=== PATIENT | male | born 1945 | race American Indian/Alaskan Native ===

== ENCOUNTER 2016-08-06 08:55 | Inpatient (IN) | payer MEDICARE ==
[2016-08-06 09:24] VITALS: BMI 20.9
--- NOTE | 2016-08-06 09:44 | ED PDOC ---
Arrival/HPI - General Historian: Patient - History of Present Illness Time/Duration: Prior to Arrival <Case Mir - Last Filed: 08/06/16 10:46> <Luis Lomeli - Last Filed: 08/06/16 13:39> - General Chief Complaint: Chest Pain Time Seen by Provider: 08/06/16 09:16 - History of Present Illness Narrative History of Present Illness (Text): 08/06/16 09:40 70 y/o male with hx CAD s/p stent placement 4 years ago, hx HTN, HLD, tobacco use presenting with complaints of left sided chest pain which started this morning prior to arrival. Patient notes associated shortness of breath with episode of chest discomfort. Currently the patient is without chest pain or shortness of breath. He denies other associated symptoms such as radiation of pain, diaphoresis or GI symptoms. He admits to not taking his medications for "some time" as he was living in [place] and did not see a physician there. He admits to tobacco use - 1/2 ppd and alcohol use - 8oz liquor daily. (Case Mir) Past Medical History - Provider Review Nursing Documentation Reviewed: Yes - Infectious Disease Hx of Infectious Diseases: None - Tetanus Immunization Tetanus Immunization: Unknown - Cardiac Hx Cardiac Disorders: Yes Hx Hypertension: Yes - Pulmonary Hx Respiratory Disorders: Yes Hx Asthma: Yes Hx Chronic Obstructive Pulmonary Disease (COPD): Yes - Neurological Hx Neurological Disorder: Yes (SYNCOPE) Hx Dizziness: Yes - HEENT Hx HEENT Disorder: Yes (WEARS RX GLASSES FOR READING) - Renal Hx Renal Disorder: No - Endocrine/Metabolic Hx Endocrine Disorders: No - Hematological/Oncological Hx Blood Disorders: No - Integumentary Hx Dermatological Disorder: No - Musculoskeletal/Rheumatological Hx Musculoskeletal Disorders: Yes Hx Falls: No Hx Gout: Yes - Gastrointestinal Hx Gastrointestinal Disorders: Yes (APPENDICITIS,INGUINAL HERNIA REPAIR) - Genitourinary/Gynecological Hx Genitourinary Disorders: No - Psychiatric Hx Psychophysiologic Disorder: No Hx Depression: No Hx Emotional Abuse: No Hx Physical Abuse: No Hx Substance Use: Yes (marijuana) - Surgical History Hx Cardiac Catheterization: Yes - Anesthesia Hx Anesthesia Reactions: No Hx Malignant Hyperthermia: No - Suicidal Assessment Feels Threatened In Home Enviroment: No <Case Mir - Last Filed: 08/06/16 10:46> Family/Social History Family/Social History: Unknown Family HX Smoking Status: Current Some Days Smoker Hx Alcohol Use: Yes Hx Substance Use: Yes (marijuana) <Case Mir - Last Filed: 08/06/16 10:46> Allergies/Home Meds <Case Mir - Last Filed: 08/06/16 10:46> <BurakdianaLuis - Last Filed: 08/06/16 13:39> Allergies/Adverse Reactions: Allergies No Known Allergies Allergy (Verified 08/06/16 11:25) Home Medications: Home Meds Medication Instructions Recorded Confirmed Simvastatin 40 mg PO DAILY 07/11/12 06/05/15 Vitamin D 07/11/12 06/05/15 Review of Systems - Physician Review All systems were reviewed & negative as marked: Yes - Review of Systems Constitutional: Normal. absent: Fatigue, Fevers Eyes: Normal ENT: Normal Respiratory: SOB. absent: Cough, Sputum, Wheezing Cardiovascular: Chest Pain. absent: Palpitations, Calf Pain, PALOMO Gastrointestinal: absent: Abdominal Pain, Diarrhea, Nausea, Vomiting Genitourinary Male: absent: Dysuria, Frequency, Hematuria Musculoskeletal: absent: Arthralgias, Back Pain, Neck Pain Skin: absent: Rash, Pruritis, Skin Lesions Neurological: absent: Headache, Dizziness, Focal Weakness Endocrine: absent: Diaphoresis Psychiatric: absent: Anxiety, Depression <Case Mir - Last Filed: 08/06/16 10:46> Physical Exam Vital Signs Reviewed: Yes Temperature: Afebrile Blood Pressure: Normal Pulse: Regular Respiratory Rate: Normal Appearance: Positive for: Well-Appearing, Non-Toxic Pain Distress: None Mental Status: Positive for: Alert and Oriented X 3 - Systems Exam Head: Present: Atraumatic, Normocephalic Pupils: Present: PERRL Extroacular Muscles: Present: EOMI Conjunctiva: Present: Normal Mouth: Present: Moist Mucous Membranes Neck: Present: Normal Range of Motion. No: JVD Respiratory/Chest: Present: Clear to Auscultation, Good Air Exchange. No: Respiratory Distress Cardiovascular: Present: Regular Rate and Rhythm, Normal S1, S2 Abdomen: Present: Normal Bowel Sounds. No: Tenderness, Distention Upper Extremity: Present: Normal Inspection, Normal ROM. No: Cyanosis, Edema Lower Extremity: Present: Normal Inspection, NORMAL PULSES, Normal ROM. No: Edema, CALF TENDERNESS Neurological: Present: GCS=15, CN II-XII Intact, Speech Normal Skin: Present: Warm, Dry. No: Rashes Psychiatric: Present: Alert, Oriented x 3, Normal Insight, Normal Concentration <Case Mir - Last Filed: 08/06/16 10:46> Vital Signs Temp Pulse Resp BP Pulse Ox 08/06/16 11:44 83 16 131/76 97 08/06/16 10:51 97.9 F 84 20 137/79 98 08/06/16 09:21 98.0 F 95 H 22 146/97 H 95 08/06/16 09:19 93 H 95 H 146/97 H Medical Decision Making <Case Mir - Last Filed: 08/06/16 10:46> - Lab Interpretations I have reviewed the lab results: Yes <Luis Lomeli - Last Filed: 08/06/16 13:39> ED Course and Treatment: 08/06/16 09:45 70 y/o male with known hx coronary, HTN, HLD presenting with chest pain. Patient is non-compliant with medications and physician f/u. EKG with NSR and without acute ischemia. Currently patient is asymptomatic and hemodynamically stable. - aspirin 325mg now - cardiac iso - CBC - CMP - chest xray - PT/pTT 08/06/16 10:46 Labs reviewed. Cardiac enzymes are negative. Labs are essentially unremarkable. Case discussed with Dr. Guadarrama who agrees to a admit the patient for observation to r/o ACS given patient's cardiac history. (Case Mir) Patient seen and examined with resident. Came up with treatment and disposition plan with resident. The patient is a 70 year old male who comes to the emergency department for evaluation of left sided chest pain associated with shortness of breath. Additional HPI details as noted by the resident. Physical examination reveal no acute findings. Will obtain EKG, Chest X-ray, and lab work to rule out ACS vs. other cardiac causes. Aspirin given for discomfort. EKG show a normal sinus rhythm at 95 BPM with left axis deviation and right bundle branch block. Chest X-ray shows no active disease. Lab work is unremarkable. Case discussed with Dr. Pérez, who is aware and agrees with the plan to place the patient in Telemetry observation for chest pain. Results and plan discussed with the patient, who expressed understanding. Patient was given the opportunity to ask question, all questions were answered and there is agreement with the plan to be admitted to the hospital. 08/06/16 13:38 pt seen with resident. pt with left sided cp x 1 day. pain free in er. trop neg x 1. ekg unchanged. admitted for cp obs. no clinical concern for pe/aortic catastrophe (no pleuritic pain, pain free, not tachycardic, no radiation to back ). (Luis Lomeli) - Lab Interpretations Lab Results: 08/06/16 09:53 08/06/16 09:53 Lab Results 08/06/16 09:53: WBC 3.8 L D, RBC 4.42, Hgb 14.6, Hct 43.7, MCV 98.9, MCH 33.0, MCHC 33.4, RDW 14.8 H, Plt Count 183, MPV 11.6 H, Gran % 61.4, Lymph % (Auto) 23.0, Wilson % (Auto) 13.0 H, Eos % (Auto) 2.1, Baso % (Auto) 0.5, Gran # 2.32, Lymph # 0.9 L, Wilson # 0.5, Eos # 0.1, Baso # 0.02, PT 10.7, INR 0.99, APTT 30.6 , Sodium 138, Potassium 4.1, Chloride 98, Carbon Dioxide 36 H, Anion Gap 8 L, BUN 11, Creatinine 0.8, Est GFR ( Amer) > 60, Est GFR (Non-Af Amer) > 60 , Random Glucose 120 H, Calcium 9.3, Total Bilirubin 0.9, AST 38, ALT 37, Alkaline Phosphatase 79, Lactate Dehydrogenase 429, Total Creatine Kinase 97, Troponin I < 0.01, Total Protein 7.0, Albumin 3.8, Globulin 3.1, Albumin/ Globulin Ratio 1.2 - RAD Interpretation Radiology Orders: 08/06/16 09:25 CHEST PORTABLE [RAD] Stat - Medication Orders Current Medication Orders: Metoprolol Tartrate (Lopressor) 50 mg PO BID PENDING SALE TO [facility] Discontinued Medications Aspirin (Aspirin) 325 mg PO STAT STA Stop: 08/06/16 09:26 Last Admin: 08/06/16 09:53 Dose: 325 MG Metoprolol Tartrate (Lopressor) 50 mg PO BID NICHELLE Metoprolol Tartrate (Lopressor) 50 mg PO STAT STA Stop: 08/06/16 12:46 Last Admin: 08/06/16 12:50 Dose: 50 MG MAR Pulse and Blood Pressure Document 08/06/16 12:50 JJ (Rec: 08/06/16 12:50 JJ [id number]) Pulse Pulse Rate (60-90) 85 Blood Pressure Blood Pressure (100/60-150/90) 147/104 <Case Mir - Last Filed: 08/06/16 10:46> - Scribe Statement The provider has reviewed the documentation as recorded by the Scribe <Luis Lomeli - Last Filed: 08/06/16 13:39> - Scribe Statement Cathleen Ledezma Provider Scribe Attestation: All medical record entries made by the Scribe were at my direction and personally dictated by me. I have reviewed the chart and agree that the record accurately reflects my personal performance of the history, physical exam, medical decision making, and the department course for this patient. I have also personally directed, reviewed, and agree with the discharge instructions and disposition. (Luis Lomeli) Disposition/Present on Arrival - Present on Arrival Any Indicators Present on Arrival: No History of DVT/PE: No History of Uncontrolled Diabetes: No Urinary Catheter: No History of Decub. Ulcer: No History Surgical Site Infection Following: None - Disposition Have Diagnosis and Disposition been Completed?: Yes Disposition Time: 10:49 Patient Plan: Observation <Case Mir - Last Filed: 08/06/16 10:46> <Luis Lomeli - Last Filed: 08/06/16 13:39> - Disposition Diagnosis: Chest pain Disposition: HOSPITALIZED Patient Problems: Current Active Problems Problem Status Diagnosed Chest pain Acute Condition: STABLE
[2016-08-06 09:59] LABS: ADD MANUAL DIFF? NO
--- NOTE | 2016-08-06 09:59 | RAD ---
HISTORY: chest pain COMPARISON: 01/30/2013 FINDINGS: LUNGS: No active pulmonary disease. PLEURA: No significant pleural effusion identified, no pneumothorax apparent. CARDIOVASCULAR: Normal. OSSEOUS STRUCTURES: No significant abnormalities. VISUALIZED UPPER ABDOMEN: Normal. OTHER FINDINGS: None. IMPRESSION: No active disease.
[2016-08-06 10:05] LABS: BASO # 0.02 K/mm3 (0.0-2.0); BASO % 0.5 % (0.0-3.0); EOS # 0.1 (0.0-0.7); EOS % 2.1 % (1.5-5.0); GRAN # 2.32 (1.4-6.5); GRAN % 61.4 % (50.0-68.0); HEMATOCRIT 43.7 % (42.0-52.0); LYMPH # 0.9 (1.2-3.4); MEAN CELL VOLUME 98.9 fL (80.0-105.0); MEAN CORPUSCULAR HGB CONC 33.4 g/dl (31.0-37.0); MEAN PLATELET VOLUME 11.6 fl (7.0-11.0); MONO # 0.5 (0.1-0.6); PLATELET COUNT 183 10^3/uL (120.0-450.0); RED CELL DISTRIBUTION WIDTH 14.8 % (11.5-14.5); WHITE BLOOD COUNT 3.8 10^3/ul (4.5-11.0)
[2016-08-06 10:15] LABS: ALB/GLOB RATIO 1.2 (1.1-1.8); ALKALINE PHOSPHATASE 79 U/L (38-133); ALT/SGPT 37 U/L (7-56); AST/SGOT 38 U/L (15-59); BILIRUBIN,TOTAL 0.9 mg/dL (0.2-1.3); BLOOD UREA NITROGEN 11 mg/dL (7-21); CALCIUM 9.3 mg/dL (8.4-10.5); CARBON DIOXIDE 36 mmol/L (21-33); CHLORIDE 98 mmol/L (98-107); GFR AFRICAN-AMERICAN > 60; GLUCOSE,RANDOM 120 mg/dL (70-110); INR 0.99 (0.93-1.08); PARTIAL THROMBOPLASTIN TIME 30.6 Seconds (23.7-30.8); POTASSIUM 4.1 mmol/L (3.6-5.0); SODIUM 138 mmol/L (132-148)
[2016-08-06 10:27] LABS: TROPONIN I < 0.01 ng/mL
[2016-08-06] MEDS ORDERED: Pneumococcal 23-Valent Vaccine IM ONE (15:15)
--- NOTE | 2016-08-06 16:46 | CARD ---
APPROVED REPORT EKG Measurement Heart [id number] <Conclusion> Normal sinus rhythm Left axis deviation Right bundle branch block Abnormal ECG
[2016-08-06] MEDS: Enoxaparin 60 mg Syringe SC SCH (20:10)
[2016-08-07] MEDS: Aspirin 325 mg EC Tablets PO SCH (09:32)
[2016-08-07] MEDS: Enoxaparin 60 mg Syringe SC SCH ×2 (09:32→21:00)
--- NOTE | 2016-08-07 11:34 | HP ---
HISTORY OF PRESENT ILLNESS: The patient is a 70-year-old male who presented to the ED with left-sided chest pain that started in the morning prior to arrival. He has a history of coronary artery disease with stent placement 4 years ago. Also has a history of hypertension, controlled on current medication. He continues to smoke 1 pack a day. He also developed shortness of breath with the chest pain. There is no radiation of pain. No nausea or vomiting. He also continues 8 ounces of liquor daily. He has history of hypertension. Blood pressure controlled with current medications. Coronary artery disease with stent placement 4 years ago. He has been stable prior to admission to the hospital. He also has a history of COPD. No recent exacerbation. Has history of syncope in the past, but none in the recent past. PAST MEDICAL HISTORY: Coronary artery disease, hypertension, cardiac stent placement, history of syncope in the past, COPD, history of dizziness, gout. PAST SURGICAL HISTORY: Cardiac stent placement, appendicitis, inguinal hernia repair. PERSONAL HISTORY: Positive for marijuana use. Smoker, smokes 1 pack a day. Current smoker. Social drinker. FAMILY HISTORY: None positive, mother and father. SOCIAL HISTORY: Lives at home. ALLERGIES: No known drug allergies. HOME MEDICATIONS: Lipitor 40 mg daily, vitamin D. REVIEW OF SYSTEMS: As per HPI. Rest of 12-point review of systems reviewed and negative. PHYSICAL EXAMINATION: GENERAL: Comfortable in bed, in no acute distress. VITAL SIGNS: Temperature 98, heart rate is 93 per minute, blood pressure 146/97 , pulse ox is 98% room air. HEENT: Normal. NECK: No lymphadenopathy. CARDIOVASCULAR: S1, S2 normal. No murmur, no gallop. PULMONARY: Air entry present, equal bilateral. No bronchospasm. No crepitations, no rhonchi. ABDOMEN: Soft, nontender, no hepatosplenomegaly. EXTREMITIES: No edema. SKIN: Intact, dry. No rash, no petechia. CENTRAL NERVOUS SYSTEM: Alert, oriented x 3, no focal sensorimotor deficit. SPINE: Normal, nontender. PSYCH: Affect normal. LABORATORY DATA: White count 3.8, hemoglobin 14.6, hematocrit 43.7, MCV 98, platelet count 183, granulocytes 61%, monocytes 13%, lymphocytes 0.9%. Coags: PT 10.7, INR 0.98, PTT 30. Sodium 138, potassium 4.1, BUN 11, creatinine 0.8, calcium 9.3, glucose 120. Troponin 0.01, second set 0.31, alkaline phosphatase 79. Chest x-ray: No infiltrate. EKG showed right bundle branch block, left axis deviation. ASSESSMENT: 1. Coronary artery disease. 2. [id number] myocardial infarction. 3. Leukopenia. 4. Monocytosis. 5. History of gout. 6. Hypertension. 7. History of syncope. PLAN: He will be admitted to tele monitoring. Cardiology consultation with Dr. Babin requested. We will start metoprolol 50 mg p.o. b.i.d. We will give full dose anticoagulation with Lovenox 60 mg subQ q. 12, Lipitor 20 mg daily. We will continue aspirin 325 mg daily. We will continue to monitor blood counts and continue to monitor serial troponins. Echocardiogram requested. Tatiana Del Castillo MD cc: [id number] TT: 08/07/2016 11:33:37 ln MTDD
--- NOTE | 2016-08-08 02:50 | CON ---
DATE: 08/07/2016 CARDIOLOGY CONSULTATION INTERNETWORKING TECHNICIAN: Pankaj Govea MD REASON FOR DICTATION: Covering Dr. John Babin. REASON FOR CONSULTATION: Chest pain, coronary artery disease, status post PTCA in the past. BRIEF CLINICAL HISTORY: A 70-year-old male, active tobacco abuse, with history of coronary artery di sease status post a stent 5-6 years ago, hypertension, hyperlipidemia, active tobacco abuse, came in with complaint of shortness of breath and a little tingling sensation with pain, with radiation to th e left arm, so came to the Emergency Room. Denies any nausea, vomiting, denies any diaphoresis. PAST MEDICAL HISTORY: Significant for coronary artery disease, last stent 6 years ago, hypertension, history of syncope, COPD, and dizziness. PAST SURGICAL HISTORY: Significant for PTCA appendectomy, inguinal hernia. SOCIAL HISTORY: Active tobacco abuse; a pack a day, history of marijuana use, drinks half-pint of vo dka off and on. PREVIOUS CARDIAC WORKUP: As follows: The patient had a stress test on 09/14/2013. Essentially a fi xed defect and no reversible ischemia, ejection fraction 59%. REVIEW OF SYSTEMS: As per HPI. CURRENT MEDICATIONS: The patient at home was taking simvastatin, isosorbide, enalapril, aspirin, and albuterol. ALLERGIES: No known drug allergies. PHYSICAL EXAMINATION: VITAL SIGNS: Temperature afebrile, heart rate 50, blood pressure 120/74. HEENT: PERRLA, extraocular muscles intact. NECK: Supple. No carotid bruits. No thyromegaly. CHEST: Clear to auscultation. HEART: S1, S2 regular. ABDOMEN: Soft. EXTREMITIES: Clubbing and cyanosis negative. EKG: Shows normal sinus, left axis deviation, and right bundle-branch block. LABORATORY DATA: Blood workup as follows: WBC 3.8, hemoglobin 14, hematocrit 43.7, platelet count 1 83. Chemistry shows sodium 138, potassium 4.0, chloride 95, carbon dioxide 36, anion gap of 11, BUN 8, creatinine 0.8. Troponin 0.01, 0.31, 0.14. IMPRESSION: Non-ST segment myocardial infarction, coronary artery disease, status post multiple sten ts, diabetes, hyperlipidemia, chronic obstructive pulmonary disease, active tobacco abuse, active alc ohol abuse, tox screen positive, alcohol level 291, positive for benzodiazepines, and positive for TC U, tricyclic antidepressant in the past. RECOMMENDATION: We will start aspirin, Plavix, Lovenox, probably needs cardiac catheterization. Fur ther recommendation and hospital course, we will follow with you. Echo to follow LV function. Thank you, , for providing the opportunity in taking care of the patient. We will transfer the care on Tuesday to Dr. John Babin. Jeferson Lira MD cc: [id number] TT: 08/08/2016 02:49:58 Confirmation # [id number] Dictation # [id number] vn
[2016-08-08 07:06] LABS: ADD MANUAL DIFF? NO
[2016-08-08 07:23] LABS: BLOOD UREA NITROGEN 16 mg/dL (7-21); CALCIUM 8.7 mg/dL (8.4-10.5); CARBON DIOXIDE 33 mmol/L (21-33); CHLORIDE 100 mmol/L (98-107); GFR AFRICAN-AMERICAN > 60; GLUCOSE,RANDOM 84 mg/dL (70-110); POTASSIUM 3.8 mmol/L (3.6-5.0); SODIUM 138 mmol/L (132-148)
[2016-08-08 07:25] LABS: BASO # 0.01 K/mm3 (0.0-2.0); BASO % 0.3 % (0.0-3.0); EOS # 0.1 (0.0-0.7); GRAN # 1.72 (1.4-6.5); GRAN % 46.9 % (50.0-68.0); HEMATOCRIT 42.4 % (42.0-52.0); LYMPH # 1.4 (1.2-3.4); LYMPH % 38.4 % (22.0-35.0); MEAN CORPUSCULAR HEMOGLOBIN 32.8 pg (25.0-35.0); MEAN CORPUSCULAR HGB CONC 32.8 g/dl (31.0-37.0); MEAN PLATELET VOLUME 11.8 fl (7.0-11.0); MONO # 0.4 (0.1-0.6); MONO % 11.4 % (1.0-6.0); PLATELET COUNT 171 10^3/uL (120.0-450.0); RED CELL DISTRIBUTION WIDTH 14.9 % (11.5-14.5); WHITE BLOOD COUNT 3.7 10^3/ul (4.5-11.0)
[2016-08-08] MEDS: Enoxaparin 60 mg Syringe SC SCH ×2 (07:46→20:41)
[2016-08-08] MEDS: Aspirin 325 mg EC Tablets PO SCH (09:32)
--- NOTE | 2016-08-08 13:24 | PN ---
DATE: 08/08/2016 REASON FOR DICTATION: Covering Dr. John Babin. REASON FOR CONSULTATION: Chest pain, coronary artery disease, status post PTCA in the past, acute co ronary syndrome, unstable angina. BRIEF CLINICAL HISTORY: This is a 70-year-old male, active tobacco abuse, history of coronary artery disease, status post stent 5-6 years ago, hypertension, hyperlipidemia, active tobacco abuse. Came in with complaint of shortness of breath and tingling sensation. First troponin was negative. Secon d troponin was 0.3. Also, complained of pain radiating to left arm. Denies any chest pain, shortnes s of breath, any palpitation, now lying flat. PHYSICAL EXAMINATION: VITAL SIGNS: Temperature afebrile, heart rate 62, blood pressure 113/ . HEENT: PERRLA. Extraocular muscles intact. NECK: Supple. No carotid bruits. No thyromegaly. CHEST: Clear to auscultation. HEART: S1, S2 regular. ABDOMEN: Soft. EXTREMITIES: Clubbing, cyanosis negative. BLOOD WORKUP: WBC 3.7, hemoglobin 13.9, hematocrit 42.4, platelet count 171. Chemistry shows sodium 130, potassium 3. , chloride 100, carbon dioxide 33, anion gap of 9, BUN 16, creatinine 0.8. Re peat troponin 0.10. EKG showed normal sinus, left axis deviation, right bundle branch block. IMPRESSION: Non-ST segment myocardial infarction, unstable angina, coronary artery disease, status p ost stent, hypertension, history of coronary artery disease in the past. RECOMMENDATION: Continue aspirin and Plavix, loaded yesterday. Continue enoxaparin and we will disc ontinue tonight. Possible catheterization tomorrow. We will turn over the care tomorrow to Dr. Archie Babin. Discussed with the patient. Thank you, Dr. Pérez, for providing us the opportunity in taking care of the patient. Jeferson Lira MD cc: [id number] TT: 08/08/2016 13:24:06 Confirmation # [id number] Dictation # [id number] en
[2016-08-09] MEDS: Aspirin 325 mg EC Tablets PO SCH ×2 (06:46→13:05)
--- NOTE | 2016-08-09 07:25 | PN ---
DATE: 08/09/2016 SUBJECTIVE: The patient has no complaints of any chest pain, no shortness of breath, no headaches, n o dizziness. PHYSICAL EXAMINATION: VITAL SIGNS: Temperature is 98.1, pulse of 60, blood pressure is 111/65, respirations 19, O2 saturat ion 97%. GENERAL: The patient comfortable, in no acute distress. HEENT: Anicteric sclerae. Moist mucosa. NECK: No JVD or adenopathy. CARDIAC: S1/S2. No murmurs. No rubs. Regular. RESPIRATORY: Clear to auscultation bilaterally. No wheezes, rales, or rhonchi. Good air entry. ABDOMEN: Bowel sounds are positive, soft, nontender, and nondistended. EXTREMITIES: No edema. Has 1+ pulses. ASSESSMENT: 1. Non-ST elevation myocardial infarction. 2. Coronary artery disease. 3. Hypertension. 4. Dyslipidemia. 5. Smoking. PLAN: The patient is currently comfortable. He is on aspirin and metoprolol for non-ST elevation my ocardial infarction. The patient is on Plavix daily. He is receiving lisinopril. The patient is on Lipitor for dyslipidemia. He is on a heart healthy diet. The patient may need a cardiac catheteriz ation. We will defer to cardiology. Salvador Pérez MD cc: [id number] TT: 08/09/2016 07:24:36 Confirmation # [id number] Dictation # [id number] en
[2016-08-09] MEDS ORDERED: Lidocaine 2% Inj (20ml) ONE (09:27)
[2016-08-09] MEDS ORDERED: Midazolam 2 MG/2 ML VIAL ONE ×2 (09:54→10:12)
[2016-08-09] MEDS ORDERED: Sodium Chloride 0.9% 1,000 ML IV SCH (10:45)
--- NOTE | 2016-08-09 10:49 | CARDCATH ---
PROCEDURE DATE: 08/09/2016 HISTORY: The patient is a 70-year-old male with a history of coronary artery disease and peripheral vascular disease who presents with chest pain. His troponins were mildly elevated. Because of this, cardiac catheterization was recommended. PROCEDURE: Left heart catheterization with coronary angiography and left ventriculogram. The right femoral artery was cannulated with a 6-Lithuanian sheath. There were no complications. The findings on catheterization revealed a right dominant circulation. His RCA was diffusely calcified with multiple 50% lesions throughout its course. The left main artery was found to be tapering at its distal portion, but was noncritical. The proximal LAD revealed a 50% stenosis. There was a patent stent in the proximal to mid LAD. The rest of the LAD and diagonal vessels revealed diffuse atherosclerosis without critical lesions. The circumflex artery and obtuse marginal branches revealed diffuse atherosclerosis without critical lesions. LV function was visualized in the GIBBONS projection. The left ventricle contracted normally. Estimated ejection fraction is 50-55%. The patient tolerated the procedure well. Manual compression was used to close the femoral artery site. SUMMARY: The procedure revealed 50% lesion in the mid LAD, 50% stenosis in the proximal LAD with a p atent stent in the proximal to mid LAD. LV function is normal. Given these findings, there is no mechanical revascularization necessary. The patient will continue on his medical therapy and continue a cardiac risk reduction program. John Babin MD cc: [id number] TT: 08/09/2016 10:49:17 jn
--- NOTE | 2016-08-10 00:17 | CP.PCM.PN ---
Subjective - Date & Time of Evaluation Date of Evaluation: 08/08/16 Time of Evaluation: 11:00 - Subjective Subjective: 08/08/2016 HISTORY OF PRESENT ILLNESS: The patient is a 70-year-old male who presented to the ED with left-sided chest pain that started in the morning prior to arrival. He has a history of coronary artery disease with stent placement 4 years ago. Also has a history of hypertension, controlled on current medication. He continues to smoke 1 pack a day. He also developed shortness of breath with the chest pain. There is no radiation of pain. No nausea or vomiting. He also continues 8 ounces of liquor daily. He has history of hypertension. Blood pressure controlled with current medications. Coronary artery disease with stent placement 4 years ago. He has been stable prior to admission to the hospital. He also has a history of COPD. No recent exacerbation. Has history of syncope in the past, but none in the recent past. Cardiac enzymes declined. No events overnight. denies chest pain. PAST MEDICAL HISTORY: Coronary artery disease, hypertension, cardiac stent placement, history of syncope in the past, COPD, history of dizziness, gout. PAST SURGICAL HISTORY: Cardiac stent placement, appendicitis, inguinal hernia repair. PERSONAL HISTORY: Positive for marijuana use. Smoker, smokes 1 pack a day. Current smoker. Social drinker. FAMILY HISTORY: None positive, mother and father. SOCIAL HISTORY: Lives at home. ALLERGIES: No known drug allergies. HOME MEDICATIONS: reviewed. REVIEW OF SYSTEMS: As per HPI. Rest of 12-point review of systems reviewed and negative. PHYSICAL EXAMINATION: GENERAL: Comfortable in bed, in no acute distress. VITAL SIGNS: reviewed. HEENT: Normal. NECK: No lymphadenopathy. CARDIOVASCULAR: S1, S2 normal. No murmur, no gallop. PULMONARY: Air entry present, equal bilateral. No bronchospasm. No crepitations, no rhonchi. ABDOMEN: Soft, nontender, no hepatosplenomegaly. EXTREMITIES: No edema. SKIN: Intact, dry. No rash, no petechia. CENTRAL NERVOUS SYSTEM: Alert, oriented x 3, no focal sensorimotor deficit. SPINE: Normal, nontender. PSYCH: Affect normal. LABORATORY DATA: White count 3.8, hemoglobin 14.6, hematocrit 43.7, MCV 98, platelet count 183, granulocytes 61%, monocytes 13%, lymphocytes 0.9%. Coags: PT 10.7, INR 0.98, PTT 30. Sodium 138, potassium 4.1, BUN 11, creatinine 0.8, calcium 9.3, glucose 120. Troponin 0.01, second set 0.31, alkaline phosphatase 79. Chest x-ray: No infiltrate. EKG showed right bundle branch block, left axis deviation. ASSESSMENT: 1. Coronary artery disease. 2. [id number] myocardial infarction. 3. Leukopenia. 4. Monocytosis. 5. History of gout. 6. Hypertension. 7. History of syncope. 8. Anemia PLAN: No events overnight. No chest pain. He is on full dose lovenox. continue tele monitoring. Cardiac cath planned for tomorrow. Cardiac enzymes declined. Leukocytosis; WC is still low. Mild anemia. work up for anemia. Syncope - resolved. ambulating in room. Hypertension- BP stable. Tatiana Del Castillo MD Objective - Vital Signs/Intake and Output Vital Signs (last 24 hours): Temp Pulse Resp BP Pulse Ox 98.4 F 56 L 20 122/72 97 08/09/16 17:30 08/09/16 22:00 08/09/16 17:30 08/09/16 17:30 08/09/16 06:00 Intake and Output: 08/09/16 08/10/16 18:59 06:59 Intake Total 360 540 Output Total 550 Balance 360 -10 - Medications Medications: Current Medications Aspirin (Ecotrin) [address] [facility] Last Admin: 08/09/16 13:05 Dose: Not Given Atorvastatin Calcium (Lipitor) [address] [facility] Last Admin: 08/09/16 21:33 Dose: 20 mg Clopidogrel Bisulfate (Plavix) [address] [facility] Last Admin: 08/09/16 13:05 Dose: Not Given Lisinopril (Zestril) [address] [facility] Last Admin: 08/09/16 13:08 Dose: 10 mg Metoprolol Tartrate (Lopressor) [address] [facility] Last Admin: 08/09/16 17:20 Dose: 50 mg - Labs Labs: PT 10.7 Seconds (9.9-11.8) 08/06/16 09:53 INR 0.99 (0.93-1.08) 08/06/16 09:53 APTT 30.6 Seconds (23.7-30.8) 08/06/16 09:53
[2016-08-10 00:32] VITALS: RESP 18
[2016-08-10 06:33] VITALS: BP 132/79; PULSE 60; TEMP 97.1; O2SAT 95
--- NOTE | 2016-08-10 08:16 | DS ---
The patient is a 70-year-old male who had come into the hospital because of chest pain. The patient was found to have elevated troponin and so he was taken to the starch factory lab[facility] by Dr. Babin for evaluation. The patient's cardiac cath done showed he had nonobstructive coronary disease. The patient is going to be discharged home today. EF on the cath was 50%-55%. He has no complaints of any headaches, no dizziness, no nausea, no vomiting. PHYSICAL EXAMINATION: VITAL SIGNS: Temperature is 97.6, pulse of 56, blood pressure is 112/67, respirations 18. GENERAL: The patient comfortable, in no acute distress. HEENT: Anicteric sclerae. Moist mucosa. NECK: No JVD or adenopathy. CARDIAC: S1/S2. No murmurs. No rubs. Regular. RESPIRATORY: Clear to auscultation bilaterally. No wheezes, rales, or rhonchi. Good air entry. ABDOMEN: Bowel sounds are positive, soft, nontender, and nondistended. EXTREMITIES: No edema. Has 1+ pulses. ASSESSMENT: 1. Non-ST elevation myocardial infarction. 2. Coronary artery disease. 3. Hypertension. 4. Dyslipidemia. 5. Smoking. PLAN: The patient is on aspirin. This will be continued. He is on Lipitor for dyslipidemia. He is on lisinopril. He is on isosorbide at home. These medications will be continued. DIET: 2 g sodium. CONDITION: Stable. ACTIVITY: Increase as tolerated. FOLLOWUP: With Dr. Garrett in 1-2 weeks. Salvador Pérez MD cc: [id number] TT: 08/10/2016 08:15:08 en
--- NOTE | 2016-08-10 09:03 | PN ---
DATE: 08/10/2016 The patient is asymptomatic post-cardiac catheterization. PHYSICAL EXAMINATION: VITAL SIGNS: Blood pressure is 132/79, heart rate in the 60s. NECK: Negative JVD. LUNGS: Without rales. HEART: Revealed S1, S2. EXTREMITIES: Without edema. The right groin site is stable. LABORATORIES: Not drawn. IMPRESSION: 1. [id number] myocardial infarction. 2. Patent stent in the left anterior descending with borderline noncritical lesions in the right cor onary artery and left anterior descending. 3. Hypercholesterolemia. 4. Stable angina. PLAN: Given these findings, the patient can be discharged today from a cardiac perspective. Followu p and instructions have been given to the patient in detail. John Babin MD cc: [id number] TT: 08/10/2016 09:03:09 Confirmation # [id number] Dictation # [id number]
== END 2016-08-10 09:40 | disposition home or self-care (01) | DRG 282 ==
LOC: ED 08:55 → ERH 10:59 → 2RNO 11:52 → OBSVTOIN 08-09 06:27 → 2RSO 08-09 11:00
PROVIDERS: ADMIT Internal Medicine Nephrology; ATTEND Internal Medicine Nephrology
PROC: 4A023N7 Measurement of Cardiac Sampling and Pressure, Left Heart, Percutaneous Approach (ICD-10-PCS; principal; 2016-08-09)
PROC: B2051ZZ Plain Radiography of Left Heart using Low Osmolar Contrast (ICD-10-PCS; 2016-08-09)
PROC: B2011ZZ Plain Radiography of Multiple Coronary Arteries using Low Osmolar Contrast (ICD-10-PCS; 2016-08-09)
DX: I21.4 Non-ST elevation (NSTEMI) myocardial infarction (principal); I25.118 Atherosclerotic heart disease of native coronary artery with other forms of angina pectoris; I10 Essential (primary) hypertension; E11.8 Type 2 diabetes mellitus with unspecified complications; J44.9 Chronic obstructive pulmonary disease, unspecified; I73.9 Peripheral vascular disease, unspecified; F17.210 Nicotine dependence, cigarettes, uncomplicated; D72.819 Decreased white blood cell count, unspecified; D72.821 Monocytosis (symptomatic); M10.9 Gout, unspecified; E78.5 Hyperlipidemia, unspecified; F12.90 Cannabis use, unspecified, uncomplicated; D64.9 Anemia, unspecified; E78.00 Pure hypercholesterolemia, unspecified; Z91.14 Patient's other noncompliance with medication regimen; Z95.5 Presence of coronary angioplasty implant and graft

== ENCOUNTER 2016-09-05 16:56 | Observation (INO) | payer MEDICARE ==
[2016-09-05 17:21] VITALS: BMI 22.3
[2016-09-05 17:52] LABS: ADD MANUAL DIFF? NO
[2016-09-05 17:58] LABS: BASO # 0.01 K/mm3 (0.0-2.0); BASO % 0.2 % (0.0-3.0); EOS # 0.1 (0.0-0.7); EOS % 1.3 % (1.5-5.0); GRAN # 3.18 (1.4-6.5); GRAN % 60.6 % (50.0-68.0); LYMPH # 1.4 (1.2-3.4); LYMPH % 26.5 % (22.0-35.0); MEAN CORPUSCULAR HEMOGLOBIN 33.7 pg (25.0-35.0); MEAN CORPUSCULAR HGB CONC 33.4 g/dl (31.0-37.0); MEAN PLATELET VOLUME 11.3 fl (7.0-11.0); MONO # 0.6 (0.1-0.6); MONO % 11.4 % (1.0-6.0); PLATELET COUNT 169 10^3/uL (120.0-450.0); RED CELL DISTRIBUTION WIDTH 15.3 % (11.5-14.5); WHITE BLOOD COUNT 5.3 10^3/ul (4.5-11.0)
[2016-09-05 18:09] LABS: INR 0.95 (0.93-1.08); PARTIAL THROMBOPLASTIN TIME 33.9 Seconds (23.7-30.8)
[2016-09-05 18:10] LABS: ALB/GLOB RATIO 1.2 (1.1-1.8); ALKALINE PHOSPHATASE 77 U/L (38-133); ALT/SGPT 34 U/L (7-56); AST/SGOT 33 U/L (15-59); BILIRUBIN,TOTAL 0.7 mg/dL (0.2-1.3); BLOOD UREA NITROGEN 14 mg/dL (7-21); CALCIUM 9.2 mg/dL (8.4-10.5); CARBON DIOXIDE 30 mmol/L (21-33); CHLORIDE 96 mmol/L (98-107); GFR AFRICAN-AMERICAN > 60; GLUCOSE,RANDOM 103 mg/dL (70-110); POTASSIUM 3.9 mmol/L (3.6-5.0); SODIUM 137 mmol/L (132-148); TOTAL PROTEIN 7.1 g/dL (5.8-8.3)
[2016-09-05 18:19] LABS: TROPONIN I < 0.01 ng/mL
--- NOTE | 2016-09-05 19:44 | ED PDOC ---
Arrival/HPI - General Chief Complaint: Palpitations Time Seen by Provider: 09/05/16 16:59 Historian: Patient - History of Present Illness Narrative History of Present Illness (Text): 09/05/16 19:39 A 70 year old male presents to the emergency department complaining of heart palpitations (fluttering) prior to arrival. Patient notes he has shortness of breath, but denies chest pain, abdominal pain or any other complaints at this time. Patient also reports smoking and alcohol use. PMD: Dr. Garrett Time/Duration: Prior to Arrival Symptom Onset: Sudden Symptom Course: Unchanged Activities at Onset: Rest Modifying Factors (Text): none Context: Home Associated Symptoms (Text): shortness of breath Past Medical History - Provider Review Nursing Documentation Reviewed: Yes - Infectious Disease Hx of Infectious Diseases: None - Tetanus Immunization Tetanus Immunization: Unknown - Cardiac Hx Cardiac Disorders: Yes Hx Hypertension: Yes - Pulmonary Hx Respiratory Disorders: Yes Hx Asthma: Yes Hx Chronic Obstructive Pulmonary Disease (COPD): Yes - Neurological Hx Neurological Disorder: Yes (SYNCOPE) Hx Dizziness: Yes - HEENT Hx HEENT Disorder: Yes (WEARS RX GLASSES FOR READING) Hx Cataracts: Yes (BILATERAL SX) - Renal Hx Renal Disorder: No - Endocrine/Metabolic Hx Endocrine Disorders: No - Hematological/Oncological Hx Blood Disorders: Yes (H/O CELLULITIS ABSCESS TO FINGERS) - Integumentary Hx Dermatological Disorder: No - Musculoskeletal/Rheumatological Hx Musculoskeletal Disorders: Yes Hx Falls: No Hx Gout: Yes Other/Comment: CARPAL TUNNEL SX - Gastrointestinal Hx Gastrointestinal Disorders: Yes (APPENDICITIS,INGUINAL HERNIA REPAIR) - Genitourinary/Gynecological Hx Genitourinary Disorders: No - Psychiatric Hx Psychophysiologic Disorder: Yes Hx Depression: Yes Hx Emotional Abuse: No Hx Physical Abuse: No Hx Substance Use: Yes (marijuana) - Surgical History Hx Cardiac Catheterization: Yes (2 STENTS) Hx Coronary Stent: Yes - Anesthesia Hx Anesthesia Reactions: No Hx Malignant Hyperthermia: No - Suicidal Assessment Feels Threatened In Home Enviroment: No Family/Social History - Physician Review Nursing Documentation Reviewed: Yes Family/Social History: No Known Family HX Smoking Status: Current Some Days Smoker Hx Alcohol Use: Yes Frequency of alcohol use: Few days per week Hx Substance Use: Yes (marijuana) Allergies/Home Meds Allergies/Adverse Reactions: Allergies No Known Allergies Allergy (Verified 09/05/16 17:20) Home Medications: Home Meds Medication Instructions Recorded Confirmed Aspirin [Ecotrin] 325 mg PO DAILY 08/06/16 08/06/16 Review of Systems - Review of Systems Constitutional: Fatigue. absent: Fevers Eyes: absent: Vision Changes ENT: absent: Hearing Changes, Rhinorrhea Respiratory: SOB. absent: Wheezing Cardiovascular: Palpitations, PALOMO. absent: Chest Pain Gastrointestinal: absent: Abdominal Pain Musculoskeletal: absent: Back Pain Skin: absent: Rash Neurological: absent: Headache, Dizziness, Focal Weakness Physical Exam - Physical Exam Narrative Physical Exam (Text): 09/05/16 19:46 Head: Atraumatic. Normocephalic. Eyes: PERRL. EOMI. Conjunctivae are not pale. ENT: Mucous membranes are moist and intact. Oropharynx is clear and symmetric. Neck: Supple. Full ROM. No JVD. No lymphadenopathy. Cardiovascular: Regular rate. Regular rhythm. Occasional premature beat. Systolic murmur noted. Pulmonary/Chest: No evidence of respiratory distress. Slightly diminished breath sounds at bases but no wheezes or rales. Abdominal: Soft and non-distended. There is no tenderness. No rebound, guarding, or rigidity. No organomegaly. Good bowel sounds. Back: No CVA tenderness. No midline tenderness. Extremities: No edema. No cyanosis. No clubbing. Full range of motion in all extremities. No calf tenderness. Skin: Skin is warm and dry. No petechiae. No purpura. Neurological: Alert, awake, and oriented to person, place, time, and situation. Normal speech. Motor and sensory exam intact. Psychiatric: Good eye contact. Normal interaction, affect, and behavior. Vital Signs Reviewed: Yes Vital Signs Temp Pulse Resp BP Pulse Ox 09/05/16 17:20 98.1 F 98 H 16 142/87 97 Temperature: Afebrile Blood Pressure: Normal Pulse: Regular Respiratory Rate: Normal Appearance: Positive for: Well-Appearing, Non-Toxic, Comfortable Pain Distress: Mild Mental Status: Positive for: Alert and Oriented X 3 Medical Decision Making ED Course and Treatment: 09/05/16 19:46 Impression: A 70 year old male with heart palpitations. Differential Diagnosis include but are not limited to: Coronary artery disease vs. arrhythmia vs. Chronic obstructive pulmonary disease Plan: -- EKG -- chest xray -- labs -- Urinalysis -- Reassess and disposition Prior Visits: Notes and results from previous visits were reviewed. Patient last reported to emergency department on 08/09/16 for evaluation of left sided chest pain. Patient was admitted to Telemetry observation. Patient was advised to continue medications and follow up with PMD. Patient was discharged on 08/10/16. Progress Notes: Patient is a smoker, hx of cad with stent, recent cardiac catheterization, presents with sudden onset of chest pain and shortness of breath, now no chest pain but sensation of palpitations. EKG unchanges from previous. He continues to smoke although currently no respiratory distress. Patient on monitor with frequent premature ventricular contractions but none sustained. Chest xray unremarkable. Initial cardiac enzymes unremarkable. Have recommended telemetry observation for monitoring as continues to smoke with hx of stent and persistently symptomatic. EKG: Ordered, reviewed, and independently interpreted the EKG. Rate : BPM Rhythm : NSR Interpretation : No ST-segment elevations or depressions, no T-wave inversions, normal intervals. Comparison : No previous EKG for comparison. 09/05/16 20:59 - Lab Interpretations Lab Results: 09/05/16 17:40 09/05/16 17:40 Lab Results 09/05/16 17:40: Alcohol, Quantitative < 10 09/05/16 17:40: Sodium 137, Potassium 3.9, Chloride 96 L, Carbon Dioxide 30, Anion Gap 15, BUN 14, Creatinine 0.7, Est GFR ( Amer) > 60, Est GFR (Non- Af Amer) > 60, Random Glucose 103, Calcium 9.2, Total Bilirubin 0.7, AST 33, ALT 34, Alkaline Phosphatase 77, Lactate Dehydrogenase 446, Total Creatine Kinase 123, Troponin I < 0.01 D, Total Protein 7.1, Albumin 3.9, Globulin 3.2, Albumin/Globulin Ratio 1.2 09/05/16 17:40: PT 10.3, INR 0.95, APTT 33.9 H 09/05/16 17:40: WBC 5.3 D, RBC 4.06, Hgb 13.7 L, Hct 41.0 L, MCV 101.0, MCH 33.7, MCHC 33.4, RDW 15.3 H, Plt Count 169, MPV 11.3 H, Gran % 60.6, Lymph % ( Auto) 26.5, [place] % (Auto) 11.4 H, Eos % (Auto) 1.3 L, Baso % (Auto) 0.2, Gran # 3.18, Lymph # 1.4, [place] # 0.6, Eos # 0.1, Baso # 0.01 I have reviewed the lab results: Yes - RAD Interpretation Radiology Orders: 09/05/16 17:34 CHEST PORTABLE [RAD] Stat - EKG Interpretation EKG Interpretation (Text): 09/05/16 20:58 sinus tachycardia rate of 102 with left axis deviation, right bundle branch block Interpreted by ED Physician: Yes Type: 12 lead EKG Comparison: Similar to previous EKG - Scribe Statement The provider has reviewed the documentation as recorded by the Scribe Wang Phillips All medical record entries made by the Scribe were at my direction and personally dictated by me. I have reviewed the chart and agree that the record accurately reflects my personal performance of the history, physical exam, medical decision making, and the department course for this patient. I have also personally directed, reviewed, and agree with the discharge instructions and disposition. Disposition/Present on Arrival - Present on Arrival Any Indicators Present on Arrival: No History of DVT/PE: No History of Uncontrolled Diabetes: No Urinary Catheter: No History of Decub. Ulcer: No History Surgical Site Infection Following: None - Disposition Have Diagnosis and Disposition been Completed?: Yes Diagnosis: Palpitations, Chest pain Disposition: HOSPITALIZED Disposition Time: 20:59 Patient Plan: Observation, Telemetry Condition: FAIR Discharge Instructions (ExitCare): Chest Pain (ED) Referrals: Segundo Garrett MD [Primary Care Provider] - Follow up with primary
[2016-09-05 23:24] LABS: PH,URINE 7.5 (4.7-8.0); URINE BILIRUBIN NEGATIVE (NEGATIVE); URINE BLOOD NEGATIVE (NEGATIVE); URINE GLUCOSE (UA) NEGATIVE (NEGATIVE); URINE KETONE NEGATIVE (NEGATIVE); URINE LEUKOCYTE ESTERASE NEGATIVE Leu/uL (NEGATIVE); URINE PROTEIN NEGATIVE mg/dL (<30 mg/dL)
[2016-09-05 23:35] LABS: URINE APPEARANCE CLEAR (CLEAR); URINE COLOR STRAW (YELLOW)
[2016-09-05 23:52] VITALS: RESP 18; TEMP 98.3
[2016-09-06 05:10] VITALS: BP 134/84; O2SAT 97
--- NOTE | 2016-09-06 07:05 | RAD ---
HISTORY: sob COMPARISON: Comparison is made to 08/06/2016 FINDINGS: LUNGS: No active pulmonary disease. No significant interval change. PLEURA: No significant pleural effusion identified, no pneumothorax apparent. CARDIOVASCULAR: Normal. OSSEOUS STRUCTURES: No significant abnormalities. VISUALIZED UPPER ABDOMEN: Normal. OTHER FINDINGS: None. IMPRESSION: No active disease.
--- NOTE | 2016-09-06 09:18 | CON ---
DATE: 09/06/2016 CARDIOLOGY CONSULTATION HISTORY: The patient is a 70-year-old male who presents with no chest pain, but intermittent palpita tions. PAST MEDICAL HISTORY: Notable for recent hospitalization, and a cardiac catheterization for non-STEM I in which he was found to have 50% lesions in the LAD. He denies chest pain. He was sent home on statin therapy, enalapril, as well as his isosorbide. He denies diabetes mellitus. He does suffer from hypertension. SOCIAL HISTORY: Denies smoking. REVIEW OF SYSTEMS: A 14-point review of systems was reviewed in detail. Other than palpitations, th ere is no other cardiac symptomatology. The patient feels well this morning. PHYSICAL EXAMINATION: VITAL SIGNS: Blood pressure 134/84. The heart rate in the 60s with occasional PVCs. NECK: Negative JVD. LUNGS: Without rales. HEART: Reveals S1, S2. EXTREMITIES: Without edema. EKG shows normal sinus rhythm with a right bundle-branch block. Hemoglobin is 13.7. LABORATORY DATA: Chemistries: Troponins are negative x 2. IMPRESSION: 1. Isolated premature ventricular contractions. 2. Palpitations. 3. Hypertension. 4. Hypercholesterolemia. Given these findings, the patient is doing well. We will check his magnesium prior to his discharge today. We will obtain an outpatient stress test to see whether we can induce PVCs during exercise. John Babin MD cc: [id number] TT: 09/06/2016 09:18:30 Confirmation # [id number] Dictation # [id number]
[2016-09-06 09:19] VITALS: PULSE 82
[2016-09-06 09:33] LABS: ALB/GLOB RATIO 1.1 (1.1-1.8); ALKALINE PHOSPHATASE 67 U/L (38-133); ALT/SGPT 31 U/L (7-56); AST/SGOT 30 U/L (15-59); BILIRUBIN,TOTAL 1.3 mg/dL (0.2-1.3); BLOOD UREA NITROGEN 9 mg/dL (7-21); CARBON DIOXIDE 31 mmol/L (21-33); CHLORIDE 100 mmol/L (98-107); GFR AFRICAN-AMERICAN > 60; GLUCOSE,RANDOM 79 mg/dL (70-110); MAGNESIUM 1.8 mg/dL (1.7-2.2); POTASSIUM 3.6 mmol/L (3.6-5.0); SODIUM 138 mmol/L (132-148); TOTAL PROTEIN 6.2 g/dL (5.8-8.3)
[2016-09-06] MEDS ORDERED: Aspirin 325 mg EC Tablets PO SCH (10:00)
--- NOTE | 2016-09-06 10:24 | CARD ---
APPROVED REPORT EKG Measurement Heart [id number] <Conclusion> Sinus tachycardia with occasional premature ventricular complexes Left axis deviation Right bundle branch block Abnormal ECG
--- NOTE | 2016-09-07 13:19 | CARD ---
APPROVED REPORT EKG Measurement Heart [id number] <Conclusion> Sinus rhythm with premature atrial complexes Right bundle branch block Septal infarct, age undetermined Abnormal ECG
--- NOTE | 2016-09-14 00:18 | HP ---
CHIEF COMPLAINT AND HISTORY OF PRESENT ILLNESS: This is a 70-year-old [facility]. The patient had a cardiac catheterization done and was found to have a 50% lesion of the LAD. He has no other complaints. No fevers or chills, no nausea, no vomiting. No dysuria or frequency. The patient was seen on 09/06/2016 by me, but the H a nd P that I dictated is not seen and this is a redictation of the H and P. The patient was seen by Mariam Babin and cleared for discharge. He otherwise felt well. He has no complaints of headaches or diz ziness, no nausea, no vomiting. ALLERGIES: No known drug allergies. HOME MEDICATIONS: Aspirin. SOCIAL HISTORY: He does not smoke. He drinks occasionally. He is a former smoker. He used to use marijuana at times. FAMILY HISTORY: Noncontributory. PAST MEDICAL HISTORY: Osteoarthritis. PHYSICAL EXAMINATION: VITAL SIGNS: Temperature is 98.3, pulse 66, blood pressure 134/84, respirations 18, height is 5 feet 11 inches, weight is 146 pounds. GENERAL: Patient lying in bed, flat, and in no apparent distress. HEAD AND NECK EXAM: Atraumatic, normocephalic. Conjunctivae are pink. Throat clear and mouth with moist mucosa. Oropharynx benign. EYES: Extraocular movements are intact. PERRLA. NECK: Supple. No JVD, thyromegaly, or adenopathy. No bruits. HEART: S1 and S2 regular rate and rhythm. No murmurs, rubs, or gallops. LUNGS: Clear to auscultation bilaterally. No wheezing rales or rhonchi appreciated. No retraction s on exam. ABDOMEN: Soft, nontender, nondistended. Bowel sounds are positive in all quadrants. No rebound. No hepatosplenomegaly. EXTREMITIES: No cyanosis, clubbing, or edema. NEURO: No facial asymmetry, tongue is midline, no uvula deviation. Power is 5/5 in upper extremity and 5/5 in lower extremity. Sensation is normal in upper extremity and lower extremity. PSYCH: Awake, alert, oriented x3. No anxiety or depression symptoms. Good insight. Normal affec t. : No CVA tenderness VASCULAR: 2+ pulses in carotid and pedal pulses. SKIN: No erythema or abnormal nodules noted. SPINE: Normal curvature. LYMPHADENOPATHY: No anterior cervical or posterior cervical adenopathy. No inguinal adenopathy. LABORATORY DATA: Labs have been reviewed. White count of 5.3, hemoglobin 13.7. Alcohol less than 1 0. His chemistry shows sodium 138, potassium 3.6, creatinine 0.7, alkaline phosphatase 67. His EKG shows sinus tachycardia with a heart rate of 102. QTC is 497. His chest x-ray done, shows no diseas e. ASSESSMENT: Palpitations. PLAN: The patient is comfortable. He was discharged to be seen by Dr. Babin. He had improvement of his symptoms. He is going to be followed with Dr. Babin. He was admitted overnight, no abnormalities on telemetry. Troponins done, which were negative. Salvador Pérez MD cc: [id number] TT: 09/14/2016 00:17:40 nh
== END 2016-09-06 10:58 | disposition home or self-care (01) ==
LOC: ED 16:56 → ERH 19:54 → 2RNO 09-06 01:21
PROVIDERS: ADMIT Internal Medicine Nephrology; ATTEND Internal Medicine Nephrology
DX: I49.3 Ventricular premature depolarization (principal); R00.2 Palpitations; I10 Essential (primary) hypertension; E78.00 Pure hypercholesterolemia, unspecified
CPT/HCPCS: 36415; 71010; 80053; 81003; 82550; 83615; 83735; 84484; 85025; 85610; 85730; 93005; 99285; G0378; G0480

== ENCOUNTER 2016-12-05 21:57 | Observation (INO) | payer MEDICARE ==
[2016-12-05 21:58] VITALS: BMI 20.9
--- NOTE | 2016-12-05 22:08 | ED PDOC ---
Arrival/HPI - General Chief Complaint: Shortness Of Breath Time Seen by Provider: 12/05/16 22:01 Historian: Patient - History of Present Illness Narrative History of Present Illness (Text): 12/05/16 22:12 70 year old male smoker, whose past medical history includes osteoarthritis and NSTEMI, who presents to the emergency department complaining of shortness of breath since earlier. Patient also reports he has been feeling weak with associated decreased appetite for the past 1-2 weeks. Patient denies any fever, chills, chest pain, nausea, vomiting, diarrhea, urinary symptoms, abdominal pain , back pain, neck pain, headache, dizziness, or any other complaints. PMD: Dr. Venecia Garrett Recreation Therapist: Dr. Babin Time/Duration: Other (1 to 2 weeks) Symptom Onset: Gradual Symptom Course: Unchanged Activities at Onset: Rest, Light Context: Home Past Medical History - Provider Review Nursing Documentation Reviewed: Yes - Infectious Disease Hx of Infectious Diseases: None - Tetanus Immunization Tetanus Immunization: Unknown - Cardiac Hx Hypertension: Yes - Pulmonary Hx Respiratory Disorders: Yes Hx Asthma: Yes Hx Chronic Obstructive Pulmonary Disease (COPD): Yes - Neurological Hx Neurological Disorder: Yes (SYNCOPE) Hx Dizziness: Yes - HEENT Hx HEENT Disorder: Yes Hx Cataracts: Yes (R eye with surgery) - Renal Hx Renal Disorder: No - Endocrine/Metabolic Hx Endocrine Disorders: No - Hematological/Oncological Hx Blood Disorders: No - Integumentary Hx Dermatological Disorder: Yes Other/Comment: H/O CELLULITIS ABSCESS TO FINGERS (2012) - Musculoskeletal/Rheumatological Hx Falls: No - Gastrointestinal Hx Gastrointestinal Disorders: Yes - Genitourinary/Gynecological Hx Genitourinary Disorders: No - Psychiatric Hx Psychophysiologic Disorder: No Hx Substance Use: Yes (marijuana) - Surgical History Hx Cardiac Catheterization: Yes Hx Coronary Stent: Yes (x2) Other/Comment: cyst removed from R hand, R cataract surgery - Anesthesia Hx Anesthesia Reactions: No Hx Malignant Hyperthermia: No - Suicidal Assessment Feels Threatened In Home Enviroment: No Family/Social History - Physician Review Nursing Documentation Reviewed: Yes Family/Social History: No Known Family HX Smoking Status: Heavy Smoker > 10 Cigarettes Daily Hx Alcohol Use: Yes ("couple days per week") Hx Substance Use: Yes (marijuana) Allergies/Home Meds Allergies/Adverse Reactions: Allergies No Known Allergies Allergy (Verified 12/07/16 16:34) Home Medications: Home Meds Medication Instructions Recorded Confirmed Aspirin [Ecotrin] 325 mg PO DAILY 08/06/16 12/07/16 Review of Systems - Physician Review All systems were reviewed & negative as marked: Yes - Review of Systems Constitutional: Other (+generalized weakness). absent: Fevers, Night Sweats Respiratory: SOB Cardiovascular: absent: Chest Pain Gastrointestinal: Appetite Changes (+decreased appetite). absent: Abdominal Pain, Diarrhea, Nausea, Vomiting Musculoskeletal: absent: Back Pain, Neck Pain Neurological: absent: Headache, Dizziness Physical Exam Vital Signs Reviewed: Yes Vital Signs Temp Pulse Resp BP Pulse Ox 12/06/16 02:10 102 H 23 146/87 98 12/06/16 02:00 23 98 12/06/16 00:08 23 95 12/06/16 00:07 102 H 23 142/82 95 12/05/16 22:10 20 12/05/16 22:08 98.3 F 104 H 20 149/97 H 100 Temperature: Afebrile Blood Pressure: Normal Pulse: Tachycardic Respiratory Rate: Normal Appearance: Positive for: Well-Appearing Pain Distress: None Mental Status: Positive for: Alert and Oriented X 3 - Systems Exam Head: Present: Atraumatic, Normocephalic Pupils: Present: PERRL Extroacular Muscles: Present: EOMI Conjunctiva: Present: Normal Mouth: Present: Moist Mucous Membranes Neck: Present: Normal Range of Motion Respiratory/Chest: Present: Wheezes. No: Respiratory Distress, Accessory Muscle Use Cardiovascular: Present: Regular Rate and Rhythm, Normal S1, S2. No: Murmurs Abdomen: Present: Normal Bowel Sounds. No: Tenderness, Distention, Peritoneal Signs Back: Present: Normal Inspection Upper Extremity: Present: Normal Inspection. No: Cyanosis, Edema Lower Extremity: Present: Normal Inspection. No: Edema Neurological: Present: GCS=15, CN II-XII Intact, Speech Normal Skin: Present: Warm, Dry, Normal Color. No: Rashes Psychiatric: Present: Alert, Oriented x 3, Normal Insight, Normal Concentration Medical Decision Making ED Course and Treatment: 12/05/16 22:25 Impression: 70 year old patient complaining of shortness of breath, associated weakness, and decreased appetite. Plan: -- EKG -- Labs, VBG, blood cultures, BNP, cardiac enzymes -- Chest X-ray -- Duoneb -- Solu-medrol -- Reassess and disposition Prior Visits: Notes and results from previous visits were reviewed. On 09/05/2016 patient came in complaining of palpitations and shortness of breath. Pt was admitted for further evaluation. Progress Notes: EKG shows sinus tachycardia at 103 BPM with PACs, LAD, RBBB. Interpreted by me. 12/05/16 23:00 Reviewed radiology, Chest X-ray shows no acute processes. 12/06/16 01:[address] Pérez, who is aware and agrees with plan. Accepts pt in to his service. Pt will go to Telemetry observation for COPD. Pt in stable condition. Discussed results and hospital observation plan with pt , who is aware and verbalizes understanding. - Lab Interpretations Microbiology Results: Microbiology Results 12/05/16 22:30 Blood-Venous Blood Culture - Preliminary NO GROWTH AFTER 3 DAYS 12/05/16 22:10 Blood-Venous Blood Culture - Preliminary NO GROWTH AFTER 3 DAYS Lab Results: 12/05/16 22:10 12/05/16 22:10 Lab Results 12/06/16 01:00: pO2 42, VBG pH 7.38, VBG pCO2 54.0, VBG HCO3 31.9 H, VBG Total CO2 33.6 H, VBG O2 Sat (Calc) 84.8 H, VBG Base Excess 5.3 H, VBG Potassium 4.1, Sodium 151.0 H, Chloride 93.0 L, Glucose 133 H, Lactate 2.7 H, FiO2 21.0, Venous Blood Potassium 4.1 12/05/16 22:10: Sodium 142, Chloride 97 L, Potassium 4.1, Carbon Dioxide 31, Anion Gap 18, BUN 16, Creatinine 0.8, Est GFR ( Amer) > 60, Est GFR (Non- Af Amer) > 60, Random Glucose 98, Calcium 10.0, Total Bilirubin 2.0 H, AST 63 H , ALT 39, Alkaline Phosphatase 84, Lactate Dehydrogenase 621, Total Creatine Kinase 300 H, CK-MB (CK-2) 4.9 H, CK-MB (CK-2) % 1.6 L, Troponin I < 0.01 D, NT -Pro-B Natriuret Pep 66.3, Total Protein 7.1, Albumin 4.2, Globulin 3.0, Albumin /Globulin Ratio 1.4 12/05/16 22:10: pO2 53, VBG pH 7.41, VBG pCO2 50.0, VBG HCO3 31.7 H, VBG Total CO2 33.2 H, VBG O2 Sat (Calc) 93.9 H, VBG Base Excess 5.8 H, VBG Potassium 3.7, Sodium 140.0, Chloride 102.0, Glucose 98, Lactate 4.4 H*, FiO2 21.0, Venous Blood Potassium 3.7 12/05/16 22:10: WBC 5.6, RBC 4.39, Hgb 15.0, Hct 44.0, MCV 100.2, MCH 34.2, MCHC 34.1, RDW 14.0, Plt Count 193, MPV 11.4 H, Gran % 34.9 L, Lymph % (Auto) 50.8 H, [place] % (Auto) 12.7 H, Eos % (Auto) 1.4 L, Baso % (Auto) 0.2, Gran # 1.95 , Lymph # 2.8, [place] # 0.7 H, Eos # 0.1, Baso # 0.01 I have reviewed the lab results: Yes - RAD Interpretation Radiology Orders: 12/05/16 22:24 CHEST PORTABLE [RAD] Stat Preprint Analyst: ED Physician - EKG Interpretation Interpreted by ED Physician: Yes Type: 12 lead EKG - Medication Orders Current Medication Orders: Discontinued Medications Acetaminophen (Tylenol 325mg Tab) 650 mg PO Q4H PRN PRN Reason: Pain, Mild (1-3) Albuterol/Ipratropium (Duoneb 3 Mg/0.5 Mg (3 Ml) Ud) 3 ml IH Q15M [facility] Stop: 12/05/16 23:01 Last Admin: 12/06/16 02:10 Dose: Not Given Non-Admin Reason: Patient Refused Aspirin (Ecotrin) 325 mg PO DAILY [facility] Last Admin: 12/07/16 09:55 Dose: 325 mg Atorvastatin Calcium (Lipitor) 20 mg PO DIN [facility] Last Admin: 12/06/16 16:51 Dose: 20 mg Famotidine (Pepcid) 40 mg PO HS [facility] Last Admin: 12/06/16 21:42 Dose: 40 mg Folic Acid (Folic Acid) 1 mg PO DAILY [facility] Last Admin: 12/07/16 11:42 Dose: 1 mg Heparin Sodium (Porcine) (Heparin) 5,000 units SC Q8 NICHELLE PRN Reason: Protocol Last Admin: 12/07/16 05:48 Dose: 5,000 units Sodium Chloride (Sodium Chloride 0.9%) 1,000 mls @ 150 mls/hr IV .Q6H40M [facility] Last Admin: 12/06/16 08:39 Dose: 150 mls/hr Sodium Chloride (Sodium Chloride 0.9%) 1,000 mls @ 50 mls/hr IV .Q20H NICHELLE Stop: 12/07/16 03:29 Last Admin: 12/06/16 18:31 Dose: 50 mls/hr Isosorbide Dinitrate (Isordil) 30 mg PO DAILY [facility] Last Admin: 12/07/16 09:54 Dose: 30 mg Levalbuterol HCl (Xopenex) 0.63 mg IH [id number] PRN PRN Reason: Shortness of Breath Last Admin: 12/07/16 03:15 Dose: 0.63 mg Lisinopril (Zestril) 10 mg PO DAILY [facility] Last Admin: 12/07/16 09:54 Dose: 10 mg Lorazepam (Ativan) 2 mg PO QID NICHELLE PRN Reason: Protocol Last Admin: 12/07/16 09:54 Dose: 2 mg Methylprednisolone (Solu-Medrol) 125 mg IVP STAT STA Stop: 12/05/16 22:25 Last Admin: 12/05/16 22:40 Dose: 125 mg Multivitamins (Thera Tab) 1 tab PO 0800 [facility] Potassium Chloride (K-Dur 20 Meq Er Tab) 40 meq PO STAT STA Stop: 12/07/16 10:09 Last Admin: 12/07/16 10:15 Dose: 40 meq Thiamine HCl (Vitamin B1 Tab) 100 mg PO BID [facility] Vitamin B Complex/Vit C/Folic Acid (Nephro-Michele) 1 tab PO 0800 [facility] - Scribe Statement The provider has reviewed the documentation as recorded by the Jorge A Arshad training with Alaina Dietrich Provider Scribe Attestation: All medical record entries made by the Scribe were at my direction and personally dictated by me. I have reviewed the chart and agree that the record accurately reflects my personal performance of the history, physical exam, medical decision making, and the department course for this patient. I have also personally directed, reviewed, and agree with the discharge instructions and disposition. Disposition/Present on Arrival - Present on Arrival Any Indicators Present on Arrival: No History of DVT/PE: No History of Uncontrolled Diabetes: No Urinary Catheter: No History of Decub. Ulcer: No History Surgical Site Infection Following: None - Disposition Have Diagnosis and Disposition been Completed?: Yes Diagnosis: Chronic obstructive lung disease Disposition: HOSPITALIZED Disposition Time: 01:45 Patient Problems: Current Active Problems Problem Status Onset Alcohol dependence with withdrawal Acute Alcohol use disorder Acute JENNY (generalized anxiety disorder) Acute MDD (major depressive disorder) Acute Condition: GOOD
[2016-12-05] MEDS: Albuterol-Ipratrop 3 mg / 0.5 (3 ml) UD IH SCH (22:40)
[2016-12-05 22:51] LABS: BASO # 0.01 K/mm3 (0.0-2.0); BASO % 0.2 % (0.0-3.0); EOS # 0.1 (0.0-0.7); EOS % 1.4 % (1.5-5.0); GRAN # 1.95 (1.4-6.5); GRAN % 34.9 % (50.0-68.0); LYMPH # 2.8 (1.2-3.4); LYMPH % 50.8 % (22.0-35.0); MEAN CELL VOLUME 100.2 fL (80.0-105.0); MEAN CORPUSCULAR HEMOGLOBIN 34.2 pg (25.0-35.0); MEAN CORPUSCULAR HGB CONC 34.1 g/dl (31.0-37.0); MEAN PLATELET VOLUME 11.4 fl (7.0-11.0); MONO # 0.7 (0.1-0.6); MONO % 12.7 % (1.0-6.0); PLATELET COUNT 193 10^3/uL (120.0-450.0); RBC 4.39 10^6/uL (3.5-6.1); VENOUS BLOOD GAS BASE EXCESS 5.8 mmol/L (0.0-2.0); VENOUS BLOOD GAS PO2 53 mm/Hg (30-55); VENOUS BLOOD PH 7.41 (7.32-7.43); WHITE BLOOD COUNT 5.6 10^3/ul (4.5-11.0)
[2016-12-05 23:01] LABS: ALB/GLOB RATIO 1.4 (1.1-1.8); ALBUMIN 4.2 g/dL (3.0-4.8); ALT/SGPT 39 U/L (7-56); AST/SGOT 63 U/L (15-59); BLOOD UREA NITROGEN 16 mg/dL (7-21); GFR AFRICAN-AMERICAN > 60; GFR NON-AFRICAN AMERICAN > 60
[2016-12-05 23:13] LABS: B-TYPE NATRIURETIC PEPTIDE 66.3 pg/mL (0-450)
[2016-12-05 23:16] LABS: TROPONIN I < 0.01 ng/mL
[2016-12-05 23:24] LABS: CK-MB 4.9 ng/mL (0.0-3.6)
[2016-12-06 01:08] LABS: VENOUS BLOOD GAS BASE EXCESS 5.3 mmol/L (0.0-2.0); VENOUS BLOOD GAS PO2 42 mm/Hg (30-55); VENOUS BLOOD PH 7.38 (7.32-7.43)
[2016-12-06] MEDS ORDERED: Albuterol-Ipratrop 3 mg / 0.5 (3 ml) UD IH PRN ×2 (01:53→07:33)
[2016-12-06] MEDS: Albuterol-Ipratrop 3 mg / 0.5 (3 ml) UD IH SCH (02:10)
[2016-12-06 04:46] LABS: VENOUS BLOOD GAS PO2 26 mm/Hg (30-55); VENOUS BLOOD PH 7.37 (7.32-7.43)
[2016-12-06 06:20] VITALS: O2SAT 96
[2016-12-06] MEDS ORDERED: Sodium Chloride 0.9% 1,000 ML IV SCH ×2 (07:30→17:36)
--- NOTE | 2016-12-06 07:34 | CP.PCM.HP ---
<Berna Choudhury - Last Filed: 12/06/16 10:32> History of Present Illness - History of Present Illness History of Present Illness: CC: Generalized weakness and sob Patient is a 70 y/o with PMH of OA, NSTEMI, asthma presenting with shortness of breath and generalized weakness for almost 1-2 weeks. Patient admits to weight loss due to not eating, denies night sweats. Patient denies fever, chills, n.v.d , denies abdominal pain, headache, dizziness , lightheadedness. Patient admits to heavy drinking, drinks 1/2 to 1 pint of alcohol a day, last drink was yesterday at 10 am. Patient smokes marijuana ocasionally, last was a week ago. SOB has resolved, denies cough, and hemoptysis. PMH: OA, NSTEMI, asthma, HTN PSH: None Social: drinks 1/2 to 1 pint a day, smokes occasional marijuana, smokes 1/2 pack a day of tobacco. Present on Admission - Present on Admission Any Indicators Present on Admission: No History of DVT/PE: No History of Uncontrolled Diabetes: No Urinary Catheter: No Decubitus Ulcer Present: No History Surgical Site Infection Following: None Review of Systems - Constitutional Constitutional: Fatigue, Weakness. absent: Chills, Fever, Frequent Falls, Headache, Increased Appetite, Lethargy - EENT Eyes: absent: Blurred Vision Ears: absent: Dizziness - Cardiovascular Cardiovascular: absent: Chest Pain, Claudication, Dyspnea on Exertion, Lightheadedness, Palpitations - Respiratory Respiratory: absent: Cough, Dyspnea, Wheezing, Chest Congestion - Gastrointestinal Gastrointestinal: absent: Abdominal Pain, Bloating, Diarrhea, Nausea, Vomiting - Genitourinary Genitourinary: absent: Dysuria, Freq UTI - Musculoskeletal Musculoskeletal: absent: Back Pain - Integumentary Integumentary: absent: Acne - Neurological Neurological: Weakness. absent: Dizziness, Frequent Falls, Syncope, Tingling, Tremor, Vertigo - Psychiatric Psychiatric: absent: Anxiety, Confusion, Depression - Endocrine Endocrine: Fatigue. absent: Palpitations, Polyuria Past Patient History - Infectious Disease Hx of Infectious Diseases: None - Tetanus Immunizations Tetanus Immunization: Unknown - Past Social History Smoking Status: Current Some Days Smoker Alcohol: > 2 Drinks/Day Drugs: Cannabis Home Situation {Lives}: With Family - CARDIAC Hx Hypertension: Yes - PULMONARY Hx Respiratory Disorders: Yes Hx Asthma: Yes Hx Chronic Obstructive Pulmonary Disease (COPD): Yes - NEUROLOGICAL Hx Neurological Disorder: Yes (SYNCOPE) Hx Dizziness: Yes - HEENT Hx HEENT Problems: Yes Hx Cataracts: Yes (R eye with surgery) - RENAL Hx Chronic Kidney Disease: No - ENDOCRINE/METABOLIC Hx Endocrine Disorders: No - HEMATOLOGICAL/ONCOLOGICAL Hx Blood Disorders: No - INTEGUMENTARY Hx Dermatological Problems: Yes Other/Comment: H/O CELLULITIS ABSCESS TO FINGERS (2012) - MUSCULOSKELETAL/RHEUMATOLOGICAL Hx Falls: No - GASTROINTESTINAL Hx Gastrointestinal Disorders: Yes - GENITOURINARY/GYNECOLOGICAL Hx Genitourinary Disorders: No - PSYCHIATRIC Hx Psychophysiologic Disorder: No Hx Substance Use: No - SURGICAL HISTORY Hx Cardiac Catheterization: Yes Hx Coronary Stent: Yes (x2) Other/Comment: cyst removed from R hand, R cataract surgery - ANESTHESIA Hx Anesthesia Reactions: No Hx Malignant Hyperthermia: No Meds Allergies/Adverse Reactions: Allergies Allergy/AdvReac Type Severity Reaction Status Date / Time No Known Allergies Allergy Verified 09/05/16 17:20 Physical Exam - Constitutional Appears: No Acute Distress, Cachectic, Chronically Ill - Head Exam Head Exam: ATRAUMATIC, NORMAL INSPECTION, NORMOCEPHALIC - Eye Exam Eye Exam: EOMI, Normal appearance, PERRL. absent: Scleral icterus Pupil Exam: NORMAL ACCOMODATION, PERRL - ENT Exam ENT Exam: Mucous Membranes Dry - Neck Exam Neck exam: Positive for: Full Rom, Normal Inspection. Negative for: Tenderness - Respiratory Exam Respiratory Exam: Clear to Auscultation Bilateral, NORMAL BREATHING PATTERN. absent: Rales, Rhonchi, Wheezes, Respiratory Distress, Stridor - Cardiovascular Exam Cardiovascular Exam: Tachycardia, REGULAR RHYTHM, +S1, +S2. absent: Systolic Murmur - GI/Abdominal Exam GI & Abdominal Exam: Normal Bowel Sounds, Soft. absent: Distended, Rigid, Tenderness - Extremities Exam Extremities exam: Positive for: normal inspection. Negative for: pedal edema - Back Exam Back exam: NORMAL INSPECTION - Neurological Exam Neurological exam: Alert, Oriented x3, Reflexes Normal - Psychiatric Exam Psychiatric exam: Normal Affect, Normal Mood - Skin Skin Exam: Dry, Intact, Normal Color, Warm Results - Vital Signs Recent Vital Signs: Last Vital Signs Temp 98.2 F 12/06/16 06:00 Pulse 100 H 12/06/16 06:00 Resp 20 12/06/16 06:00 BP 135/78 12/06/16 06:00 Pulse Ox 96 12/06/16 06:00 - Labs Result Diagrams: 12/06/16 08:28 12/06/16 08:28 Labs: Laboratory Results - last 24 hr 12/06/16 04:30 pO2 26 L VBG pH 7.37 VBG pCO2 55.0 VBG HCO3 31.8 H VBG Total CO2 33.5 H VBG O2 Sat (Calc) 53.7 VBG Base Excess 5.0 H VBG Potassium 4.3 Sodium 138.0 Chloride 98.0 Glucose 230 H Lactate 5.2 H* FiO2 21.0 Venous Blood Potassium 4.3 Assessment & Plan - Assessment and Plan (Free Text) Assessment: 1)SOB likely 2nd to asthma exacerbation versus copd. 2) Lactic acidosis likely 2nd to alcohol abuse, r/o HIV, r/o infection 3) CAD 4) htn 5) Mild transaminitis likely alcohol induced. Plan: Patient with persistent lactic acidosis, no leukocytosis, afebrile. Mildly elevated CPK, normal trop x1, EKG unchanged from prior admission. Will obtain ua , ucx and bcx to rule out infection. Will also obtain HIV. NS@150 cc/hr. Will obtain utox and ethanol levels. Will monitor for withdrawal. Xoponex prn for sob. Will continue lisinopril, isordil, lipitor and asa for CAD , htn and hld. Pepcid for gi prophylaxis, and heparin sc for DVT prophylaxis. Patient seen, examined and case discussed with Dr Pérez. - Date & Time Date: 12/06/16 Time: 07:30 <Salvador Pérez S - Last Filed: 12/06/16 17:38> Results - Vital Signs Recent Vital Signs: Last Vital Signs Temp 99 F 12/06/16 11:30 Pulse 97 H 12/06/16 11:30 Resp 20 12/06/16 11:30 BP 132/82 12/06/16 11:30 Pulse Ox 96 12/06/16 11:30 - Labs Result Diagrams: 12/06/16 08:28 12/06/16 08:28 Labs: Laboratory Results - last 24 hr 12/06/16 12/06/16 12/06/16 04:30 08:27 08:27 WBC RBC Hgb Hct MCV MCH MCHC RDW Plt Count MPV Gran % Lymph % (Auto) [place] % (Auto) Eos % (Auto) Baso % (Auto) Gran # Lymph # Hughes # Eos # Baso # pO2 26 L 93 H VBG pH 7.37 7.42 VBG pCO2 55.0 44.0 VBG HCO3 31.8 H 28.5 H VBG Total CO2 33.5 H 29.9 H VBG O2 Sat (Calc) 53.7 99.5 H VBG Base Excess 5.0 H 3.4 H VBG Potassium 4.3 4.2 Sodium 138.0 137.0 Chloride 98.0 102.0 Glucose 230 H 208 H Lactate 5.2 H* 4.3 H* FiO2 21.0 21.0 Potassium Carbon Dioxide Anion Gap BUN Creatinine Est GFR ( Amer) Est GFR (Non-Af Amer) Random Glucose Lactic Acid 4.3 H* Calcium Total Bilirubin AST ALT Alkaline Phosphatase Lactate Dehydrogenase Total Creatine Kinase CK-MB (CK-2) CK-MB (CK-2) % Troponin I Total Protein Albumin Globulin Albumin/Globulin Ratio TSH 3rd Generation Venous Blood Potassium 4.3 4.2 Alcohol, Quantitative 12/06/16 12/06/16 12/06/16 08:28 08:28 08:28 WBC 5.4 RBC 4.23 Hgb 14.0 Hct 41.9 L MCV 99.1 MCH 33.1 MCHC 33.4 RDW 14.1 Plt Count 181 MPV 11.1 H Gran % 92.4 H Lymph % (Auto) 5.4 L [place] % (Auto) 2.2 Eos % (Auto) 0.0 L Baso % (Auto) 0.0 Gran # 4.96 Lymph # 0.3 L [place] # 0.1 Eos # 0.0 Baso # 0.00 pO2 VBG pH VBG pCO2 VBG HCO3 VBG Total CO2 VBG O2 Sat (Calc) VBG Base Excess VBG Potassium Sodium 140 Chloride 98 Glucose Lactate FiO2 Potassium 4.1 Carbon Dioxide 27 Anion Gap 19 BUN 15 Creatinine 0.8 Est GFR ( Amer) > 60 Est GFR (Non-Af Amer) > 60 Random Glucose 201 H Lactic Acid Calcium 9.4 Total Bilirubin 1.7 H AST 52 ALT 29 Alkaline Phosphatase 70 Lactate Dehydrogenase 435 Total Creatine Kinase 243 H CK-MB (CK-2) 3.3 CK-MB (CK-2) % Cancelled Troponin I < 0.01 Total Protein 6.6 Albumin 3.8 Globulin 2.8 Albumin/Globulin Ratio 1.4 TSH 3rd Generation 0.60 Venous Blood Potassium Alcohol, Quantitative 12/06/16 09:37 WBC RBC Hgb Hct MCV MCH MCHC RDW Plt Count MPV Gran % Lymph % (Auto) [place] % (Auto) Eos % (Auto) Baso % (Auto) Gran # Lymph # Hughes # Eos # Baso # pO2 VBG pH VBG pCO2 VBG HCO3 VBG Total CO2 VBG O2 Sat (Calc) VBG Base Excess VBG Potassium Sodium Chloride Glucose Lactate FiO2 Potassium Carbon Dioxide Anion Gap BUN Creatinine Est GFR ( Amer) Est GFR (Non-Af Amer) Random Glucose Lactic Acid Calcium Total Bilirubin AST ALT Alkaline Phosphatase Lactate Dehydrogenase Total Creatine Kinase CK-MB (CK-2) CK-MB (CK-2) % Troponin I Total Protein Albumin Globulin Albumin/Globulin Ratio TSH 3rd Generation Venous Blood Potassium Alcohol, Quantitative < 10 Assessment & Plan - Assessment and Plan (Free Text) Plan: Pt seen and examined. Reviewed the note by the resident and I do agree with it.He does have hx of ETOh abuse. Will get psych evaluation. No SOB. Will decrease IVF rate.
[2016-12-06] MEDS ORDERED: Levalbuterol 0.63 MG/3 ML Inhal Soln UD IH PRN (07:40)
[2016-12-06 08:32] LABS: GRAN # 4.96 (1.4-6.5); GRAN % 92.4 % (50.0-68.0); LYMPH # 0.3 (1.2-3.4); LYMPH % 5.4 % (22.0-35.0); MEAN CELL VOLUME 99.1 fL (80.0-105.0); MEAN CORPUSCULAR HEMOGLOBIN 33.1 pg (25.0-35.0); MEAN CORPUSCULAR HGB CONC 33.4 g/dl (31.0-37.0); MEAN PLATELET VOLUME 11.1 fl (7.0-11.0); MONO # 0.1 (0.1-0.6); MONO % 2.2 % (1.0-6.0); PLATELET COUNT 181 10^3/uL (120.0-450.0); RBC 4.23 10^6/uL (3.5-6.1); RED CELL DISTRIBUTION WIDTH 14.1 % (11.5-14.5); WHITE BLOOD COUNT 5.4 10^3/ul (4.5-11.0)
[2016-12-06 08:33] LABS: VENOUS BLOOD GAS BASE EXCESS 3.4 mmol/L (0.0-2.0); VENOUS BLOOD GAS PO2 93 mm/Hg (30-55); VENOUS BLOOD PH 7.42 (7.32-7.43)
[2016-12-06 08:44] LABS: ALB/GLOB RATIO 1.4 (1.1-1.8); ALBUMIN 3.8 g/dL (3.0-4.8); ALT/SGPT 29 U/L (7-56); AST/SGOT 52 U/L (15-59); BLOOD UREA NITROGEN 15 mg/dL (7-21); CALCIUM 9.4 mg/dL (8.4-10.5); GFR AFRICAN-AMERICAN > 60; GFR NON-AFRICAN AMERICAN > 60
[2016-12-06 08:57] LABS: TROPONIN I < 0.01 ng/mL
[2016-12-06 08:59] LABS: CK-MB 3.3 ng/mL (0.0-3.6)
--- NOTE | 2016-12-06 09:28 | RAD ---
HISTORY: sob COMPARISON: 09/05/2016 FINDINGS: LUNGS: No active pulmonary disease. PLEURA: No significant pleural effusion identified, no pneumothorax apparent. CARDIOVASCULAR: Normal. OSSEOUS STRUCTURES: No significant abnormalities. VISUALIZED UPPER ABDOMEN: Normal. OTHER FINDINGS: None. IMPRESSION: No active disease.
[2016-12-06] MEDS: Aspirin 325 mg EC Tablets PO SCH (10:14)
[2016-12-06 18:39] LABS: URINE APPEARANCE CLEAR (CLEAR); URINE BILIRUBIN NEGATIVE (NEGATIVE); URINE BLOOD NEGATIVE (NEGATIVE); URINE COLOR YELLOW (YELLOW); URINE GLUCOSE (UA) NEGATIVE (NEGATIVE); URINE LEUKOCYTE ESTERASE NEGATIVE Leu/uL (NEGATIVE); URINE NITRATE NEGATIVE (NEGATIVE); URINE PROTEIN NEGATIVE mg/dL (<30 mg/dL); URINE UROBILINOGEN 0.2 E.U./dL (<1 E.U./dL)
[2016-12-06 18:55] LABS: BARBITURATES, UR NEGATIVE (NEGATIVE); BENZODIAZEPINES, UR NEGATIVE (NEGATIVE); OPIATES, UR NEGATIVE (NEGATIVE); PHENCYCLIDINE, UR NEGATIVE (NEGATIVE)
[2016-12-07 08:39] VITALS: BP 127/82; PULSE 78; RESP 18; TEMP 97.6
[2016-12-07 09:33] LABS: GRAN # 8.66 (1.4-6.5); GRAN % 83.3 % (50.0-68.0); HEMOGLOBIN 12.3 g/dL (14.0-18.0); LYMPH # 1.1 (1.2-3.4); LYMPH % 10.2 % (22.0-35.0); MEAN PLATELET VOLUME 11.6 fl (7.0-11.0); MONO # 0.7 (0.1-0.6); MONO % 6.5 % (1.0-6.0); PLATELET COUNT 151 10^3/uL (120.0-450.0); RBC 3.73 10^6/uL (3.5-6.1); RED CELL DISTRIBUTION WIDTH 14.2 % (11.5-14.5); WHITE BLOOD COUNT 10.4 10^3/ul (4.5-11.0)
[2016-12-07 09:42] LABS: ALB/GLOB RATIO 1.2 (1.1-1.8); ALBUMIN 3.1 g/dL (3.0-4.8); ALT/SGPT 27 U/L (7-56); AST/SGOT 34 U/L (15-59); BLOOD UREA NITROGEN 13 mg/dL (7-21); GFR AFRICAN-AMERICAN > 60; GFR NON-AFRICAN AMERICAN > 60
--- NOTE | 2016-12-07 09:43 | CARD ---
APPROVED REPORT EKG Measurement Heart [id number] <Conclusion> Sinus tachycardia with premature atrial complex Left axis deviation Right bundle branch block LAHB No change
[2016-12-07] MEDS: Aspirin 325 mg EC Tablets PO SCH (09:55)
[2016-12-07] MEDS ORDERED: Potassium Chloride 20 mEq ER Tab PO STA (10:08)
--- NOTE | 2016-12-07 10:14 | CP.PCM.DIS ---
<Berna Choudhury - Last Filed: 12/07/16 15:22> Provider - Provider Date of Admission: 12/06/16 01:52 Attending physician: Salvador Pérez MD Primary care physician: Segundo Garrett MD Consults: Psych Time Spent in preparation of Discharge (in minutes): 45 Diagnosis - Discharge Diagnosis (1) Alcohol abuse Status: Acute (2) Lactic acid acidosis Status: Resolved (3) Dyspnea or other respiratory complaints Status: Resolved (4) Hypokalemia Status: Resolved Hospital Course - Lab Results Lab Results: Most Recent Lab Values WBC 10.4 10^3/ul (4.5-11.0) D 12/07/16 09:00 RBC 3.73 10^6/uL (3.5-6.1) 12/07/16 09:00 Hgb 12.3 g/dL (14.0-18.0) L 12/07/16 09:00 Hct 37.3 % (42.0-52.0) L 12/07/16 09:00 MCV 100.0 fl (80.0-105.0) 12/07/16 09:00 MCH 33.0 pg (25.0-35.0) 12/07/16 09:00 MCHC 33.0 g/dl (31.0-37.0) 12/07/16 09:00 RDW 14.2 % (11.5-14.5) 12/07/16 09:00 Plt Count 151 10^3/uL (120.0-450.0) 12/07/16 09:00 MPV 11.6 fl (7.0-11.0) H 12/07/16 09:00 Gran % 83.3 % (50.0-68.0) H 12/07/16 09:00 Lymph % (Auto) 10.2 % (22.0-35.0) L 12/07/16 09:00 [place] % (Auto) 6.5 % (1.0-6.0) H 12/07/16 09:00 Eos % (Auto) 0.0 % (1.5-5.0) L 12/07/16 09:00 Baso % (Auto) 0.0 % (0.0-3.0) 12/07/16 09:00 Gran # 8.66 (1.4-6.5) H 12/07/16 09:00 Lymph # 1.1 (1.2-3.4) L 12/07/16 09:00 [place] # 0.7 (0.1-0.6) H 12/07/16 09:00 Eos # 0.0 (0.0-0.7) 12/07/16 09:00 Baso # 0.00 K/mm3 (0.0-2.0) 12/07/16 09:00 pO2 93 mm/Hg (30-55) H 12/06/16 08:27 VBG pH 7.42 (7.32-7.43) 12/06/16 08:27 VBG pCO2 44.0 (40-60) 12/06/16 08:27 VBG HCO3 28.5 mmol/l (21-28) H 12/06/16 08:27 VBG Total CO2 29.9 mmol.L (22-28) H 12/06/16 08:27 VBG O2 Sat (Calc) 99.5 % (40-65) H 12/06/16 08:27 VBG Base Excess 3.4 mmol/L (0.0-2.0) H 12/06/16 08:27 VBG Potassium 4.2 mmol/L (3.6-5.2) 12/06/16 08:27 Sodium 137.0 mmol/L (132-148) 12/06/16 08:27 Chloride 102.0 mmol/L (98-107) 12/06/16 08:27 Glucose 208 mg/dl (75-110) H 12/06/16 08:27 Lactate 4.3 mmol/L (0.7-2.1) H* 12/06/16 08:27 FiO2 21.0 % 12/06/16 08:27 Sodium 137 mmol/L (132-148) 12/07/16 09:00 Potassium 3.5 mmol/L (3.6-5.0) L 12/07/16 09:00 Chloride 102 mmol/L (98-107) 12/07/16 09:00 Carbon Dioxide 29 mmol/L (21-33) 12/07/16 09:00 Anion Gap 10 (10-20) 12/07/16 09:00 BUN 13 mg/dL (7-21) 12/07/16 09:00 Creatinine 0.8 mg/dL (0.5-1.4) 12/07/16 09:00 Est GFR ( Amer) > 60 12/07/16 09:00 Est GFR (Non-Af Amer) > 60 12/07/16 09:00 Random Glucose 125 mg/dL (70-110) H 12/07/16 09:00 Lactic Acid 2.1 mmol/L (0.7-2.1) 12/07/16 07:19 Calcium 9.0 mg/dL (8.4-10.5) 12/07/16 09:00 Total Bilirubin 1.2 mg/dL (0.2-1.3) 12/07/16 09:00 AST 34 U/L (15-59) 12/07/16 09:00 ALT 27 U/L (7-56) 12/07/16 09:00 Alkaline Phosphatase 60 U/L (38-133) 12/07/16 09:00 Lactate Dehydrogenase 435 U/L (333-699) 12/06/16 08:28 Total Creatine Kinase 243 U/L (35-230) H 12/06/16 08:28 CK-MB (CK-2) 3.3 ng/mL (0.0-3.6) 12/06/16 08:28 CK-MB (CK-2) % 1.6 % (2.5-3.0) L 12/05/16 22:10 Troponin I < 0.01 ng/mL 12/06/16 08:28 NT-Pro-B Natriuret Pep 66.3 pg/mL (0-450) 12/05/16 22:10 Total Protein 5.7 g/dL (5.8-8.3) L 12/07/16 09:00 Albumin 3.1 g/dL (3.0-4.8) 12/07/16 09:00 Globulin 2.6 gm/dL 12/07/16 09:00 Albumin/Globulin Ratio 1.2 (1.1-1.8) 12/07/16 09:00 TSH 3rd Generation 0.60 mIU/mL (0.46-4.68) 12/06/16 08:28 Venous Blood Potassium 4.2 mmol/L (3.6-5.2) 12/06/16 08:27 Urine Color Yellow (YELLOW) 12/06/16 18:23 Urine Appearance Clear (CLEAR) 12/06/16 18:23 Urine pH 6.0 (4.7-8.0) 12/06/16 18:23 Ur Specific [place] 1.020 (1.005-1.035) 12/06/16 18:23 Urine Protein Negative mg/dL (<30 mg/dL) 12/06/16 18:23 Urine Glucose (UA) Negative mg/dL (NEGATIVE) 12/06/16 18:23 Urine Ketones Trace mg/dL (NEGATIVE) H 12/06/16 18:23 Urine Blood Negative (NEGATIVE) 12/06/16 18:23 Urine Nitrate Negative (NEGATIVE) 12/06/16 18:23 Urine Bilirubin Negative (NEGATIVE) 12/06/16 18:23 Urine Urobilinogen 0.2 E.U./dL (<1 E.U./dL) 12/06/16 18:23 Ur Leukocyte Esterase Negative [place]/uL (NEGATIVE) 12/06/16 18:23 Urine Opiates Screen Negative (NEGATIVE) 12/06/16 18:23 Urine Methadone Screen Negative (NEGATIVE) 12/06/16 18:23 Ur Barbiturates Screen Negative (NEGATIVE) 12/06/16 18:23 Ur Phencyclidine Scrn Negative (NEGATIVE) 12/06/16 18:23 Ur Amphetamines Screen Negative (NEGATIVE) 12/06/16 18:23 U Benzodiazepines Scrn Negative (NEGATIVE) 12/06/16 18:23 U Oth Cocaine Metabols Negative (NEGATIVE) 12/06/16 18:23 U Cannabinoids Screen Negative (NEGATIVE) 12/06/16 18:23 Alcohol, Quantitative < 10 mg/dL (0-10) 12/06/16 09:37 - Hospital Course Hospital Course: Patient is a 70 y/o with PMH of OA, NSTEMI, asthma presenting with shortness of breath and generalized weakness for almost 1-2 weeks. Upon further inquiring, patient reported he is a heavy drinker, he drinks 1/2 to 1 pint everyday. Patient reported the SOB was transient and resolved by the time of admission. ABG revealed lactic acidosis, no leukocytosis, and afebrile. CPK was also elevated, however trended down with IVF. Troponin was negative. EKG unchanged from prior admission. Ua was negative, blood culture with no growth after 24 hrs. Chest x-ray was also normal. Patient is to be discharged after evaluation by psychiatrist. Smoking cessation and alcohol cessation advised. - Date & Time of H&P Date of H&P: 12/07/16 Time of H&P: 07:30 Discharge Exam - Head Exam Head Exam: ATRAUMATIC, NORMAL INSPECTION, NORMOCEPHALIC - Eye Exam Eye Exam: EOMI, Normal appearance, PERRL Pupil Exam: NORMAL ACCOMODATION - ENT Exam ENT Exam: Mucous Membranes Moist - Neck Exam Neck exam: Full Rom, Normal Inspection - Respiratory Exam Respiratory Exam: Clear to PA & Lateral, NORMAL BREATHING PATTERN, UNREMARKABLE. absent: Rales, Rhonchi, Wheezes, Stridor - Cardiovascular Exam Cardiovascular Exam: REGULAR RHYTHM, RRR, +S1, +S2 - GI/Abdominal Exam GI & Abdominal Exam: Normal Bowel Sounds, Soft, Unremarkable. absent: Distended , Firm, Hernia, Tenderness - Extremities Exam Extremities exam: normal inspection - Back Exam Back exam: NORMAL INSPECTION - Neurological Exam Neurological exam: Alert, CN II-XII Intact, Oriented x3, Reflexes Normal - Psychiatric Exam Psychiatric exam: Normal Affect, Normal Mood - Skin Skin Exam: Dry, Intact, Warm Discharge Plan - Follow Up Plan Condition: GOOD Disposition: HOME/ ROUTINE Instructions: Alcohol Intoxication (DC), Abuse of Alcohol (DC) Additional Instructions: Follow up with Dr Pérez in 1 week. Alcohol and tobacco cessation advised. Pt seen and examined. Note of resident reviewed and I agree with. Pt to go to the psych unit. He has hx of ETOH and was advised to stop drinking. No SOB. Eating well and eating well. Referrals: Segundo Garrett MD [Primary Care Provider] - <Salvador Pérez - Last Filed: 12/07/16 18:43> Provider - Provider Date of Admission: 12/06/16 01:52 Attending physician: Salvador Pérez MD Primary care physician: Segundo Garrett MD Hospital Course - Lab Results Lab Results: Most Recent Lab Values WBC 10.4 10^3/ul (4.5-11.0) D 12/07/16 09:00 RBC 3.73 10^6/uL (3.5-6.1) 12/07/16 09:00 Hgb 12.3 g/dL (14.0-18.0) L 12/07/16 09:00 Hct 37.3 % (42.0-52.0) L 12/07/16 09:00 MCV 100.0 fl (80.0-105.0) 12/07/16 09:00 MCH 33.0 pg (25.0-35.0) 12/07/16 09:00 MCHC 33.0 g/dl (31.0-37.0) 12/07/16 09:00 RDW 14.2 % (11.5-14.5) 12/07/16 09:00 Plt Count 151 10^3/uL (120.0-450.0) 12/07/16 09:00 MPV 11.6 fl (7.0-11.0) H 12/07/16 09:00 Gran % 83.3 % (50.0-68.0) H 12/07/16 09:00 Lymph % (Auto) 10.2 % (22.0-35.0) L 12/07/16 09:00 [place] % (Auto) 6.5 % (1.0-6.0) H 12/07/16 09:00 Eos % (Auto) 0.0 % (1.5-5.0) L 12/07/16 09:00 Baso % (Auto) 0.0 % (0.0-3.0) 12/07/16 09:00 Gran # 8.66 (1.4-6.5) H 12/07/16 09:00 Lymph # 1.1 (1.2-3.4) L 12/07/16 09:00 [place] # 0.7 (0.1-0.6) H 12/07/16 09:00 Eos # 0.0 (0.0-0.7) 12/07/16 09:00 Baso # 0.00 K/mm3 (0.0-2.0) 12/07/16 09:00 pO2 93 mm/Hg (30-55) H 12/06/16 08:27 VBG pH 7.42 (7.32-7.43) 12/06/16 08:27 VBG pCO2 44.0 (40-60) 12/06/16 08:27 VBG HCO3 28.5 mmol/l (21-28) H 12/06/16 08:27 VBG Total CO2 29.9 mmol.L (22-28) H 12/06/16 08:27 VBG O2 Sat (Calc) 99.5 % (40-65) H 12/06/16 08:27 VBG Base Excess 3.4 mmol/L (0.0-2.0) H 12/06/16 08:27 VBG Potassium 4.2 mmol/L (3.6-5.2) 12/06/16 08:27 Sodium 137.0 mmol/L (132-148) 12/06/16 08:27 Chloride 102.0 mmol/L (98-107) 12/06/16 08:27 Glucose 208 mg/dl (75-110) H 12/06/16 08:27 Lactate 4.3 mmol/L (0.7-2.1) H* 12/06/16 08:27 FiO2 21.0 % 12/06/16 08:27 Sodium 137 mmol/L (132-148) 12/07/16 09:00 Potassium 3.5 mmol/L (3.6-5.0) L 12/07/16 09:00 Chloride 102 mmol/L (98-107) 12/07/16 09:00 Carbon Dioxide 29 mmol/L (21-33) 12/07/16 09:00 Anion Gap 10 (10-20) 12/07/16 09:00 BUN 13 mg/dL (7-21) 12/07/16 09:00 Creatinine 0.8 mg/dL (0.5-1.4) 12/07/16 09:00 Est GFR ( Amer) > 60 12/07/16 09:00 Est GFR (Non-Af Amer) > 60 12/07/16 09:00 Random Glucose 125 mg/dL (70-110) H 12/07/16 09:00 Lactic Acid 2.1 mmol/L (0.7-2.1) 12/07/16 07:19 Calcium 9.0 mg/dL (8.4-10.5) 12/07/16 09:00 Total Bilirubin 1.2 mg/dL (0.2-1.3) 12/07/16 09:00 AST 34 U/L (15-59) 12/07/16 09:00 ALT 27 U/L (7-56) 12/07/16 09:00 Alkaline Phosphatase 60 U/L (38-133) 12/07/16 09:00 Lactate Dehydrogenase 435 U/L (333-699) 12/06/16 08:28 Total Creatine Kinase 243 U/L (35-230) H 12/06/16 08:28 CK-MB (CK-2) 3.3 ng/mL (0.0-3.6) 12/06/16 08:28 CK-MB (CK-2) % 1.6 % (2.5-3.0) L 12/05/16 22:10 Troponin I < 0.01 ng/mL 12/06/16 08:28 NT-Pro-B Natriuret Pep 66.3 pg/mL (0-450) 12/05/16 22:10 Total Protein 5.7 g/dL (5.8-8.3) L 12/07/16 09:00 Albumin 3.1 g/dL (3.0-4.8) 12/07/16 09:00 Globulin 2.6 gm/dL 12/07/16 09:00 Albumin/Globulin Ratio 1.2 (1.1-1.8) 12/07/16 09:00 TSH 3rd Generation 0.60 mIU/mL (0.46-4.68) 12/06/16 08:28 Venous Blood Potassium 4.2 mmol/L (3.6-5.2) 12/06/16 08:27 Urine Color Yellow (YELLOW) 12/06/16 18:23 Urine Appearance Clear (CLEAR) 12/06/16 18:23 Urine pH 6.0 (4.7-8.0) 12/06/16 18:23 Ur Specific [place] 1.020 (1.005-1.035) 12/06/16 18:23 Urine Protein Negative mg/dL (<30 mg/dL) 12/06/16 18:23 Urine Glucose (UA) Negative mg/dL (NEGATIVE) 12/06/16 18:23 Urine Ketones Trace mg/dL (NEGATIVE) H 12/06/16 18:23 Urine Blood Negative (NEGATIVE) 12/06/16 18:23 Urine Nitrate Negative (NEGATIVE) 12/06/16 18:23 Urine Bilirubin Negative (NEGATIVE) 12/06/16 18:23 Urine Urobilinogen 0.2 E.U./dL (<1 E.U./dL) 12/06/16 18:23 Ur Leukocyte Esterase Negative [place]/uL (NEGATIVE) 12/06/16 18:23 Urine Opiates Screen Negative (NEGATIVE) 12/06/16 18:23 Urine Methadone Screen Negative (NEGATIVE) 12/06/16 18:23 Ur Barbiturates Screen Negative (NEGATIVE) 12/06/16 18:23 Ur Phencyclidine Scrn Negative (NEGATIVE) 12/06/16 18:23 Ur Amphetamines Screen Negative (NEGATIVE) 12/06/16 18:23 U Benzodiazepines Scrn Negative (NEGATIVE) 12/06/16 18:23 U Oth Cocaine Metabols Negative (NEGATIVE) 12/06/16 18:23 U Cannabinoids Screen Negative (NEGATIVE) 12/06/16 18:23 Alcohol, Quantitative < 10 mg/dL (0-10) 12/06/16 09:37 HIV 1&2 Ag/Ab, 4th Gen Nonreactive (Nonreactive) 12/06/16 06:30
--- NOTE | 2016-12-08 00:59 | CON ---
DATE: 12/07/2016 HISTORY OF PRESENT ILLNESS: Shortly, the patient is a 70-year-old male with history of alcohol use disorder. Patient has multiple medical issues, osteoarthritis, asthma. Patient was admitted from the medical side for evaluation of shortness of breath. This investment underwriter got involved into the patient's care because of depressive symptoms. Patient was seen and examined today. Patient presented to have flat affect, tearful. Patient reported that he had a lot of losses in his life. Recently, his [id number] . Since that time, patient was drinking even more than usual. Patient reports that he was drinking about 1 pint of vodka on a daily basis. Reported to have sleep disturbances and ability to function, feeling of hopelessness and helplessness. Patient denied thoughts of harming himself or others, patient denied hearing voices, denied seeing things, denied paranoid ideation. Patient lives alone and does not have much support in the community. Besides alcohol, patient denied any other drug use. PAST PSYCHIATRIC HISTORY: Patient denied history of being admitted to the psychiatric inpatient unit and right now, patient feels that he needs to stay in the hospital in order to start feeling better because he was not able to function recently. PHYSICAL EXAMINATION VITAL SIGNS: Stable. Temperature 97.6, pulse 78, blood pressure 127/82, respiration 18, oxygen saturation is 96%. MEDICATIONS: Reviewed. Tylenol, aspirin, Lipitor, Pepcid, folic acid, heparin, isosorbide, Serepax, Zestril, Ativan will be started 2 mg q.i.d. schedule, multivitamin, and thiamine and folic acid. LABORATORY DATA: Labs reviewed. Chemistry reviewed. Potassium is 2.5. Urinalysis checked. Toxicology alcohol level less than 10, last drink was 24 hours ago. Microbiology was reviewed. MENTAL STATUS EXAMINATION: Patient presented to be depressed, flat affect, intermittent eye contact. Speech was under productive, low volume. Mood described as depressed and hopeless. Affect was tearful and flat. Mood congruent. Thought process was coherent and goal directed. Thought content, patient denied visual, auditory, or tactile hallucinations. Denied paranoid ideation. The patient does not present to be psychotic. Insight and judgement are limited, but improving. Impulses are well controlled. IMPRESSION: Rule out major depressive disorder, rule out adjustment disorder, rule out substance induced mood disorder, rule out alcohol withdrawals. The patient has multiple medical comorbidities, please see Dr. Pérez's, notes for more details and information. PLAN: This investment underwriter offered patient psychiatric inpatient admission. The patient is willing to sign himself in, in order to start on medication, antidepressant as well as wean the patient off from the benzodiazepines. Patient also was not able to function well. Patient has transient thoughts of , but denied any intent or plan to kill himself. Patient might benefit from the admission to the psychiatric inpatient unit. Trazodone will be started. Ativan will be continued. Multivitamin, thiamine and folic acid will be continued. Patient also might benefit from serotonin reuptake inhibitors, Prozac will be started at 10 mg daily. Risks, benefits and alternatives of the medications are explained to the patient. Patient will be transferred to the psychiatric inpatient unit as soon as bed is available. Thank you very much for letting me participate in care of your patient. We will call Dr. Pérez for a consultation. Keyona Kohler MD <
[2016-12-08] MEDS ORDERED: Multivitamin Therapeutic Tab PO SCH (08:00)
[2016-12-08] MEDS ORDERED: Multivitamin Vitamin B Complex (Nephro-Vite) Tab PO SCH (08:00)
== END 2016-12-07 14:58 ==
LOC: ED 21:57 → ERH 12-06 01:52 → 2RSO 12-06 02:56 → 5RNO 12-06 13:12
PROVIDERS: ADMIT Internal Medicine Nephrology; ATTEND Internal Medicine Nephrology
DX: J45.901 Unspecified asthma with (acute) exacerbation (principal); F10.10 Alcohol abuse, uncomplicated; J44.9 Chronic obstructive pulmonary disease, unspecified; I10 Essential (primary) hypertension; F17.210 Nicotine dependence, cigarettes, uncomplicated; F12.90 Cannabis use, unspecified, uncomplicated; E87.6 Hypokalemia; E87.2 Acidosis; I25.10 Atherosclerotic heart disease of native coronary artery without angina pectoris; M19.90 Unspecified osteoarthritis, unspecified site; F32.9 Major depressive disorder, single episode, unspecified; F41.1 Generalized anxiety disorder; I25.2 Old myocardial infarction; Y90.0 Blood alcohol level of less than 20 mg/100 ml; Z95.5 Presence of coronary angioplasty implant and graft; Z79.82 Long term (current) use of aspirin
CPT/HCPCS: 36415; 71010; 80053; 81003; 82550; 82553; 82803; 83605; 83615; 83880; 84443; 84484; 85025; 87040; 87086; 93005; 96374; 99285; G0378; G0480; J1644; J2930; J7040

== ENCOUNTER 2016-12-07 15:02 | Inpatient (IN) | payer MEDICARE ==
[2016-12-07] MEDS ORDERED: Magnesium Hydroxide Susp 30 ml UD PO PRN (16:46)
[2016-12-07] MEDS ORDERED: Alum-Mag Hydrox-Simethicone Susp (30 mL) PO PRN (16:46)
--- NOTE | 2016-12-07 17:43 | PCM.BM ---
<Quinten Serra - Last Filed: 12/07/16 17:43> Treatment Plan Problems - Problems identified on initial assessmt worthlessness Date Initiated: 12/07/16 Time Initiated: 17:44 Assessment reference: NA Status: Active Priority: 1 Hopelessness Date Initiated: 12/07/16 Time Initiated: 17:42 Assessment reference: NA Priority: 2 Knowledge Deficit: Alcohol Use Date Initiated: 12/07/16 Time Initiated: 17:45 Assessment reference: NA Status: Active Priority: 3 Treatment assets and liabiliti Patient Assests: adapts well, cooperative, motivated, resourceful, ADL independent, cognitively intact, good interpersonal skills, strong noah Patient Liabilities: live alone, substance abuse, medical problems - Milieu Protocol Maintain good personal hygiene: daily Encourage regular showers, daily Remind patient to perform daily oral care Conduct patient checks and document Observation sheet: Q15 minutes Maintain personal safety: every shift Educate patient to report safety concerns to staff, every shift Monitor environment for contraband/sharps Medication safety: Monitor for expected outcome, potential side effects: every shift, Assess barriers to learning: every shift, Assess readiness for medication education: every shift Discharge/Continuing Care - Education Needs Education Needs: Family Uses of Medical Equipment, Patient Medication, Patient Diagnosis/Disease Process, Patient Coping Skills, Patient Community resources, Patient Nutrition, Patient Health Practices/Safety - Discharge Discharge Criteria: Tolerates medication w/o severe side effects, Free of Suicidal thoughts, Free of Homicidal thoughts, No longer exhibiting s/s of withdrawal, Reduction of target symptoms Discharge to:: Home <Elizabeth Troncoso - Last Filed: 12/08/16 10:36> - Milieu Protocol Maintain good personal hygiene: daily Encourage regular showers, daily Remind patient to perform daily oral care, every shift Assist patient to perform ADL's Conduct patient checks and document Observation sheet: Q15 minutes Maintain personal safety: daily Educate patient to report safety concerns to staff, every shift Monitor environment for contraband/sharps Medication safety: Monitor for expected outcome, potential side effects: every shift, Assess barriers to learning: every shift, Assess readiness for medication education: every shift <Keyona Kohler - Last Filed: 12/08/16 13:45> - Diagnosis (1) MDD (major depressive disorder) Status: Acute Interventions: 12/08/16 13:46 Psychoeducation Psychopharmacology/adjustment of medications as needed/ monitoring possible side effects Evaluate pt on daily basis Compliance with medications and follow up appointments Suicide and homicide risk assessment and prevention Relapse prevention Reduction of symptoms Improve functional status Family intervention As outpatient: cognitive behavioral therapy/interpersonal psychotherapy/ psychodynamic psychotherapy/problem-solving therapy (2) Alcohol use disorder Status: Acute Interventions: 12/08/16 13:46 Monitoring withdrawal symptoms Medical detoxification Pharmacotherapy for alcohol/benzos/opioid dependence Maintaining sobriety Relapse prevention Possible rehabilitation Motivational interviewing 12-step programs: AA meetings (3) Alcohol dependence with withdrawal Status: Acute Interventions: 12/08/16 13:46 Monitoring withdrawal symptoms Medical detoxification Pharmacotherapy for alcohol/benzos/opioid dependence Maintaining sobriety Relapse prevention Possible rehabilitation Motivational interviewing 12-step programs: AA meetings (4) JENNY (generalized anxiety disorder) Status: Acute Interventions: 12/08/16 13:47 Psychoeducation Psychopharmacology/adjustment of medications as needed/ monitoring possible side effects Evaluate pt on daily basis Compliance with medications and follow up appointments Suicide and homicide risk assessment and prevention, coping strategies, safety plan Reduction of symptoms Relaxation techniques and breathing exercises Improve functional status Family intervention As outpatient: cognitive behavioral therapy <Josephine Fong Y - Last Filed: 12/09/16 08:15>
[2016-12-07] MEDS ORDERED: Levalbuterol 0.63 MG/3 ML Inhal Soln UD IH PRN (18:00)
[2016-12-08 07:41] LABS: GLUCOSE,FASTING 84 mg/dL (65-110); HDL CHOLESTEROL 66 mg/dL (29-60)
[2016-12-08 07:53] LABS: LDL CHOLESTEROL < 30 mg/dL (0-129)
[2016-12-08 07:55] LABS: FREE T4 0.98 ng/dL (0.78-2.19)
--- NOTE | 2016-12-08 10:03 | CP.PCM.CON ---
<Berna Choudhury - Last Filed: 12/08/16 16:57> History of Present Illness - History of Present Illness History of Present Illness: IM consult note for Dr Pérez. Reason for consult: follow up. Patient is a 70 y/o with PMH of OA, NSTEMI, asthma presenting with shortness of breath and generalized weakness for almost 1-2 weeks. Upon further inquiring, patient reported he is a heavy drinker, he drinks 1/2 to 1 pint everyday. ABG revealed lactic acidosis, no leukocytosis, and afebrile. CPK was also elevated, however trended down with IVF. Troponin was negative. EKG unchanged from prior admission. Ua was negative, blood culture with no growth after 48 hrs. Chest x- ray was also normal. Patient is currently on [facility] for behavioral treatment. Patient c/o b/l leg weakness, denies cp, sob, n,v,d. Patient denies abdominal pain, denies headache or dizziness. Patient is able to ambulate with a walker. PMH: OA, NSTEMI, asthma, HTN PSH: None Social: drinks 1/2 to 1 pint a day, smokes occasional marijuana, smokes 1/2 pack a day of tobacco. Review of Systems - Review of Systems All systems: reviewed and no additional remarkable complaints except Review of Systems: 12 point ROS reviewed all negative except as per HPI. Past Patient History - Infectious Disease Hx of Infectious Diseases: None - Tetanus Immunizations Tetanus Immunization: Unknown - Past Social History Smoking Status: Current Some Days Smoker Alcohol: > 2 Drinks/Day Drugs: Cannabis Home Situation {Lives}: Alone - CARDIAC Hx Hypertension: Yes - PULMONARY Hx Respiratory Disorders: Yes Hx Asthma: Yes Hx Chronic Obstructive Pulmonary Disease (COPD): Yes - NEUROLOGICAL Hx Neurological Disorder: Yes (SYNCOPE) Hx Dizziness: Yes - HEENT Hx HEENT Problems: Yes Hx Cataracts: Yes (R eye with surgery) - RENAL Hx Chronic Kidney Disease: No - ENDOCRINE/METABOLIC Hx Endocrine Disorders: No - HEMATOLOGICAL/ONCOLOGICAL Hx Blood Disorders: No - INTEGUMENTARY Hx Dermatological Problems: Yes Other/Comment: H/O CELLULITIS ABSCESS TO FINGERS (2012) - MUSCULOSKELETAL/RHEUMATOLOGICAL Hx Falls: No - GASTROINTESTINAL Hx Gastrointestinal Disorders: Yes - GENITOURINARY/GYNECOLOGICAL Hx Genitourinary Disorders: No - PSYCHIATRIC Hx Substance Use: Yes (occasional use of marijuana) - SURGICAL HISTORY Hx Cardiac Catheterization: Yes Hx Coronary Stent: Yes (x2) Other/Comment: cyst removed from R hand, R cataract surgery - ANESTHESIA Hx Anesthesia Reactions: No Hx Malignant Hyperthermia: No Meds Allergies/Adverse Reactions: Allergies Allergy/AdvReac Type Severity Reaction Status Date / Time No Known Allergies Allergy Verified 12/07/16 16:34 - Medications Medications: Current Medications Acetaminophen (Tylenol 325mg Tab) 650 mg PO Q4 PRN PRN Reason: Pain, Mild (1-3) Al Hydrox/Mg Hydrox/Simethicone (Maalox Plus 30 Ml) 30 ml PO DAILY PRN PRN Reason: Upset Stomach Aspirin (Aspirin) 325 mg PO DAILY [facility] Atorvastatin Calcium (Lipitor) 20 mg PO DIN [facility] Famotidine (Pepcid) 40 mg PO HS [facility] Last Admin: 12/07/16 21:57 Dose: 40 mg Fluoxetine HCl (Prozac) 10 mg PO DAILY [facility] Folic Acid (Folic Acid) 1 mg PO DAILY [facility] Isosorbide Dinitrate (Isordil) 30 mg PO DAILY [facility] Levalbuterol HCl (Xopenex) 0.63 mg IH [id number] PRN PRN Reason: Shortness of Breath Lisinopril (Zestril) 10 mg PO DAILY [facility] Lorazepam (Ativan) 2 mg PO Q6H [facility] PRN Reason: Protocol Last Admin: 12/08/16 06:26 Dose: 2 mg Magnesium Hydroxide (Milk Of Magnesia) 30 ml PO DAILY PRN PRN Reason: Constipation Multivitamins (Thera Tab) 1 tab PO 0800 [facility] Thiamine HCl (Vitamin B1 Tab) 100 mg PO BID [facility] Trazodone HCl (Desyrel) 50 mg PO HS PRN PRN Reason: Insomnia Vitamin B Complex/Vit C/Folic Acid (Nephro-Michele) 1 tab PO 0800 [facility] Physical Exam - Constitutional Appears: No Acute Distress, Cachectic - Head Exam Head Exam: ATRAUMATIC, NORMAL INSPECTION, NORMOCEPHALIC - Eye Exam Eye Exam: EOMI, Normal appearance, PERRL. absent: Scleral icterus Pupil Exam: NORMAL ACCOMODATION, PERRL - ENT Exam ENT Exam: Mucous Membranes Moist - Neck Exam Neck exam: Positive for: Normal Inspection - Respiratory Exam Respiratory Exam: Clear to Auscultation Bilateral, NORMAL BREATHING PATTERN. absent: Rales, Rhonchi, Wheezes, Respiratory Distress, Stridor - Cardiovascular Exam Cardiovascular Exam: REGULAR RHYTHM, +S1, +S2 - GI/Abdominal Exam GI & Abdominal Exam: Normal Bowel Sounds, Soft. absent: Distended, Firm, Tenderness - Extremities Exam Extremities exam: Positive for: normal inspection - Back Exam Back exam: NORMAL INSPECTION - Neurological Exam Neurological exam: Alert, Oriented x3 - Psychiatric Exam Psychiatric exam: Normal Affect, Normal Mood - Skin Skin Exam: Dry, Intact, Normal Color, Warm Results - Vital Signs Recent Vital Signs: Last Vital Signs Temp 97.7 F 12/08/16 07:31 Pulse 81 12/08/16 07:31 Resp 20 12/08/16 07:31 BP 140/88 12/08/16 07:31 Pulse Ox - Labs Labs: Laboratory Results - last 24 hr 12/08/16 12/08/16 07:00 07:00 Fasting Glucose 84 Triglycerides 99 Cholesterol 106 L LDL Cholesterol Direct < 30 HDL Cholesterol 66 H Free T4 0.98 TSH 3rd Generation 2.58 Assessment & Plan - Assessment and Plan (Free Text) Assessment: 1) Lower extremities weakness, degenerative changes on x-ray 2) Lactic acidosis likely 2nd to alcohol abuse 3) CAD 4) htn Plan: Continue with behavioral treatment as per psych. Xoponex prn for sob. Continue lisinopril, Isordil, Lipitor and asa for CAD, htn and hld. PT for gait instability. Will sign off of patient, please reconsult again prn. Patient seen, examined and case discussed with Dr Pérez. - Date & Time Date: 12/08/16 Time: 13:05 <Salvador Pérez S - Last Filed: 12/09/16 16:53> Meds - Medications Medications: Current Medications Acetaminophen (Tylenol 325mg Tab) 650 mg PO Q4 PRN PRN Reason: Pain, Mild (1-3) Al Hydrox/Mg Hydrox/Simethicone (Maalox Plus 30 Ml) 30 ml PO DAILY PRN PRN Reason: Upset Stomach Aspirin (Aspirin) 325 mg PO DAILY [facility] Last Admin: 12/09/16 09:37 Dose: 325 mg Atorvastatin Calcium (Lipitor) 20 mg PO DIN [facility] Last Admin: 12/08/16 18:57 Dose: 20 mg Famotidine (Pepcid) 40 mg PO HS [facility] Last Admin: 12/08/16 22:22 Dose: 40 mg Fluoxetine HCl (Prozac) 10 mg PO DAILY [facility] Last Admin: 12/09/16 09:36 Dose: 10 mg Folic Acid (Folic Acid) 1 mg PO DAILY [facility] Last Admin: 12/09/16 09:38 Dose: 1 mg Isosorbide Dinitrate (Isordil) 30 mg PO DAILY [facility] Last Admin: 12/09/16 09:38 Dose: 30 mg Levalbuterol HCl (Xopenex) 0.63 mg IH [id number] PRN PRN Reason: Shortness of Breath Lisinopril (Zestril) 10 mg PO DAILY [facility] Last Admin: 12/09/16 09:38 Dose: 10 mg Lorazepam (Ativan) 2 mg PO TID [facility] PRN Reason: Protocol Last Admin: 12/09/16 13:26 Dose: Not Given Magnesium Hydroxide (Milk Of Magnesia) 30 ml PO DAILY PRN PRN Reason: Constipation Multivitamins (Thera Tab) 1 tab PO 0800 [facility] Last Admin: 12/09/16 09:39 Dose: 1 tab Nicotine (Nicoderm Cq) 1 patch TD DAILY [facility] Last Admin: 12/09/16 09:36 Dose: 1 patch Thiamine HCl (Vitamin B1 Tab) 100 mg PO BID [facility] Last Admin: 12/09/16 09:39 Dose: 100 mg Trazodone HCl (Desyrel) 50 mg PO HS PRN PRN Reason: Insomnia Last Admin: 12/08/16 22:22 Dose: 50 mg Vitamin B Complex/Vit C/Folic Acid (Nephro-Michele) 1 tab PO 0800 [facility] Last Admin: 12/09/16 09:36 Dose: 1 tab Results - Vital Signs Recent Vital Signs: Last Vital Signs Temp 97.3 F L 12/09/16 07:32 Pulse 76 12/09/16 07:32 Resp 20 12/09/16 07:32 BP 118/78 12/09/16 07:32 Pulse Ox - Labs Labs: Laboratory Results - last 24 hr 12/08/16 07:00 RPR Nonreactive Assessment & Plan - Assessment and Plan (Free Text) Plan: Pt seen and examined. Resident note reviewed and agree with. I evaluated the pt myself and discussed it with the resident. No new issues. Will sign off. Pt is aware to f/u with me as out-pt.
[2016-12-08] MEDS: Multivitamin Vitamin B Complex (Nephro-Vite) Tab PO SCH (10:04)
[2016-12-08] MEDS: Multivitamin Therapeutic Tab PO SCH (10:08)
--- NOTE | 2016-12-08 10:31 | RAD ---
PROCEDURE: Bilateral Knee Radiographs. HISTORY: complain of pain COMPARISON: None. FINDINGS: BONES: Right Knee: Normal. No fracture. Left Knee: Normal. No fracture. JOINTS: Right Knee: Mild joint space narrowing in the medial compartment bilaterally Left knee: As above SOFT TISSUES: Right Knee: Normal. Left Knee: Normal. JOINT EFFUSION: Right Knee: None. Left Knee: None. OTHER FINDINGS: None. IMPRESSION: Mild joint space narrowing in the medial compartment bilaterally
--- NOTE | 2016-12-08 10:35 | RAD ---
PROCEDURE: Cervical Spine Radiographs. HISTORY: Pain. COMPARISON: None. FINDINGS: BONES: Alignment maintained. No fracture. Dens Intact. DISC SPACES: There is disc degeneration with extensive anterior osteophyte formation with fusion of C3-4 and C4-5. Disc degeneration at C5-6 and C6-7 SOFT TISSUES: Normal. No prevertebral soft tissue swelling. OTHER FINDINGS: None. IMPRESSION: Severe chronic degenerative changes.
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
--- NOTE | 2016-12-08 19:32 | CON ---
DATE: 12/08/2016 Room 519, Bed 2 HISTORY OF PRESENT ILLNESS: When I went to see him, he complains of numbness to both hands with what looks like atrophy of his thenar eminence of both hands consistent with carpal tunnel syndrome and the nurse tells me he has complaint of knees, but he did not mention that to me. I felt his knees and there is no evidence of effusion, but we will go ahead and x-ray both knees and see if it substantiates his symptoms of right knee pain. I will send him for physical therapy, and he should probably see a neurologist if it is possible carpal tunnel and to discern why he has atrophy of his thenar eminences, and while we are at x-rays, we will probably get cervical spine to make sure he does have cervical spine osteoarthritis, which could cause bilateral carpal tunnel syndrome and an issue of hypothyroidism also with appropriate test for the bilateral carpal tunnel. Russ Stearns DO
[2016-12-09] MEDS: Multivitamin Vitamin B Complex (Nephro-Vite) Tab PO SCH (09:36)
[2016-12-09] MEDS: Multivitamin Therapeutic Tab PO SCH (09:39)
--- NOTE | 2016-12-09 18:09 | PCM.PYCHPN ---
Psychiatric Progress Note - Psychiatric Progress Note Patient seen today, length of contact: 30 minutes Patient Chief Complaint: "I M doing little better" Problems Identified/Issues Discussed: Suicide/ homicide prevention, past psychiatric h/o, current psychiatric symptoms , medical problems, risk/benefits and alternatives of medications, medications compliance, coping strategies, substance abuse h/o, relapse prevention, importance of follow up with psychiatrist and therapist, discharge plan. Medical Problems: pt was seen by ortho pt c/o unsteady gait, PT was called Diagnostic Results: Lab Results 12/08/16 07:00: RPR Nonreactive 12/08/16 07:00: Free T4 0.98, TSH 3rd Generation 2.58 12/08/16 07:00: Fasting Glucose 84, Triglycerides 99, Cholesterol 106 L, LDL Cholesterol Direct < 30, HDL Cholesterol 66 H Vital Signs Temp Pulse Resp BP 12/09/16 07:32 97.3 F L 76 20 118/78 12/08/16 16:00 89 143/92 H 12/08/16 10:05 81 140/88 12/08/16 07:31 97.7 F 81 20 140/88 12/07/16 15:21 19 DSM 5 Symptoms Update: shortly patient is 70 year old -[place] male, not known previous psychiatric history, patient denied history of being admitted to the psychiatric inpatient unit, patient was admitted on the medical side initially of for evaluation of shortness of breath, possible alcohol withdrawal symptoms, patient was medically stable, patient was found to be depressed, hopeless, pt needs further evaluation and stabilization on the psychiatric inpatient unit. patient was seen at the TV area, personal hygiene is better, still has UE tremor , BP WNL, was elevated yesterday. Patient reported that she still feels depressed, but more hopeful for the future. Patient has low energy, at times has anxiety, patient had good night sleep. Patient denied any psychotic symptoms. patient was compliant with medications, no side effects observed or reported. As per staff patient has flat affect but trying his best to socializing with others, started to go to groups. Patient tolerated medications well, no side effects observed or reported, aims 0 , no EPS. Impression: Rule out major depressive disorder Rule out substance-induced mood disorder Alcohol use disorder Alcohol withdrawal symptoms which are much better Medication Change: Yes (Ativan decreased) Medical Record Reviewed: Yes Consults ordered or reviewed: medical consult appreciated Physical therapy consultation was called Orthopedist consult was called appreciated Mental Status Examination - Cognitive Function Orientation: Person, Place, Situation, Time Memory: Intact Attention: Poor Concentration: Poor Association: WNL Fund of Knowledge: WNL - Mood Mood: Depressed, Anxious - Affect Affect: Constricted, Flat - Formal Thought Process Formal Thought Process: No Impairment - Suicidal Ideation Suicidal Ideation: No - Homicidal Ideation Homicidal Ideation: No Goal/Treatment Plan - Goal/Treatment Plan Need for Continued Stay: Remain at risks for inpatient hospitalization, Severe depression anxiety, Discharge may exacerbated symptoms, Severe functional impairment Progress Toward Problem(s) and Goals/Treatment Plan: milieu, structure, supportive therapy medical medications will be resumed by medical team multivitamins Thiamine 100 mg twice a day Folic acid 1 milligram a day Ativan will be decreased to1 mg 4 times a day for alcohol withdrawal symptoms Prozac 10 mg daily for major depressive disorder as well as anxiety Trazodone 50 mg at the nighttime as needed for insomnia as well as depression Physical therapy evaluation Medical team follow-up appreciated turntable worker evaluation We'll monitor closely Estimated Date of D/C: 12/14/16 (we'll monitor closely)
[2016-12-10] MEDS: Multivitamin Therapeutic Tab PO SCH (08:44)
--- NOTE | 2016-12-10 15:42 | PCM.PYCHPN ---
Psychiatric Progress Note - Psychiatric Progress Note Patient seen today, length of contact: 30 minutes Patient Chief Complaint: "I want to become stronger..." Problems Identified/Issues Discussed: Suicide/ homicide prevention, past psychiatric h/o, current psychiatric symptoms , medical problems, risk/benefits and alternatives of medications, medications compliance, coping strategies, substance abuse h/o, relapse prevention, importance of follow up with psychiatrist and therapist, discharge plan. Medical Problems: pt was seen by ortho pt c/o unsteady gait, PT was called Diagnostic Results: Lab Results 12/08/16 07:00: RPR Nonreactive 12/08/16 07:00: Free T4 0.98, TSH 3rd Generation 2.58 12/08/16 07:00: Fasting Glucose 84, Triglycerides 99, Cholesterol 106 L, LDL Cholesterol Direct < 30, HDL Cholesterol 66 H Vital Signs Temp Pulse Resp BP 12/09/16 07:32 97.3 F L 76 20 118/78 12/08/16 16:00 89 143/92 H 12/08/16 10:05 81 140/88 12/08/16 07:31 97.7 F 81 20 140/88 12/07/16 15:21 19 Temp Pulse Resp BP Pulse Ox 97.5 F L 91 H 20 124/81 12/10/16 07:53 12/10/16 07:53 12/10/16 07:53 12/10/16 07:53 DSM 5 Symptoms Update: shortly patient is 70 year old -Portuguese male, not known previous psychiatric history, patient denied history of being admitted to the psychiatric inpatient unit, patient was admitted on the medical side initially of for evaluation of shortness of breath, possible alcohol withdrawal symptoms, patient was medically stable, patient was found to be depressed, hopeless, pt needs further evaluation and stabilization on the psychiatric inpatient unit. patient was seen at the TV area, personal hygiene is better, still has UE tremor but better, BP WNL, will taper ativan further, pt was educated about naltrexone, but pt said that he has no cravings for alcohol and he wants to try to quit drinking by going to AA meetings. Patient reported that she still feels depressed, asked to increase his Prozac, sleep is improving, pt has hopes for the future "to become stronger, walk better and be okay" patient was compliant with medications, no side effects observed or reported. As per staff patient has flat affect but trying his best to socializing with others, started to go to groups. Patient tolerated medications well, no side effects observed or reported, aims 0 , no EPS. Impression: Rule out major depressive disorder Rule out substance-induced mood disorder Alcohol use disorder Alcohol withdrawal symptoms which are much better Medication Change: Yes (Ativan decreased, prozac increased) Medical Record Reviewed: Yes Consults ordered or reviewed: medical consult appreciated Physical therapy consultation was called Orthopedist consult was called appreciated Mental Status Examination - Cognitive Function Orientation: Person, Place, Situation, Time Memory: Intact Attention: Poor (some improvement) Concentration: Poor (some improvement) Association: WNL Fund of Knowledge: WNL - Mood Mood: Depressed, Anxious - Affect Affect: Constricted - Formal Thought Process Formal Thought Process: No Impairment - Suicidal Ideation Suicidal Ideation: No - Homicidal Ideation Homicidal Ideation: No Goal/Treatment Plan - Goal/Treatment Plan Need for Continued Stay: Remain at risks for inpatient hospitalization, Severe depression anxiety, Discharge may exacerbated symptoms, Severe functional impairment Progress Toward Problem(s) and Goals/Treatment Plan: milieu, structure, supportive therapy medical medications will be resumed by medical team multivitamins Thiamine 100 mg twice a day Folic acid 1 milligram a day Ativan will be decreased to1 mg 3 times a day for alcohol withdrawal symptoms, plan to wean it off Prozac 20 mg daily for major depressive disorder as well as anxiety Trazodone 50 mg at the nighttime as needed for insomnia as well as depression Physical therapy evaluation Medical team follow-up 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
--- NOTE | 2016-12-11 08:51 | PCM.PYCHPN ---
Psychiatric Progress Note - Psychiatric Progress Note Patient seen today, length of contact: 25 minutes Patient Chief Complaint: "okay" Problems Identified/Issues Discussed: I reviewed assessment in recent notes. I met with patient at bedside. He is calm , cooperative and well-oriented to circumstances. Patient feels "okay", affect is fairly calm with me this morning. Responses are relevant to questioning and he does not appear to be responding to internal stimuli. Patient denies any new discomfort or pain. He has been tolerating his medications and slept well last night. Staff notes indicate that patient has been visible on the unit. He goes to groups but doesn't really participate. No alcohol withdrawal symptoms noted. There were no major behavioral issues overnight. Diagnostic Results: Rule out major depressive disorder Rule out substance-induced mood disorder Alcohol use disorder Alcohol withdrawal symptoms which are much better Medication Change: No ( ) Medical Record Reviewed: Yes Mental Status Examination - Cognitive Function Orientation: Person, Place, Situation, Time Memory: Intact Attention: WNL (some improvement) Concentration: Poor (some improvement) Association: WNL Fund of Knowledge: WNL - Mood Mood: Depressed ("okay"), Anxious - Affect Affect: Constricted - Speech Speech: Appropriate - Formal Thought Process Formal Thought Process: No Impairment - Suicidal Ideation Suicidal Ideation: No - Homicidal Ideation Homicidal Ideation: No Goal/Treatment Plan - Goal/Treatment Plan Need for Continued Stay: Remain at risks for inpatient hospitalization, Severe depression anxiety, Discharge may exacerbated symptoms, Severe functional impairment Progress Toward Problem(s) and Goals/Treatment Plan: * c/w current tx and plan * Taper Ativan 1 mg po TID as tolerated * No new weekend labs * Vitals reviewed and noted below: Selected Entries 12/10/16 12/10/16 07:53 16:00 Temperature 97.5 F L Pulse Rate 91 H 89 Respiratory 20 Rate Blood Pressure 124/81 105/63 Estimated Date of D/C: 12/14/16 (we'll monitor closely)
[2016-12-11] MEDS: Multivitamin Therapeutic Tab PO SCH (08:57)
[2016-12-12] MEDS: Multivitamin Therapeutic Tab PO SCH (09:21)
--- NOTE | 2016-12-12 09:42 | PCM.PYCHPN ---
Psychiatric Progress Note - Psychiatric Progress Note Patient seen today, length of contact: 25 minutes Patient Chief Complaint: "pretty good" Problems Identified/Issues Discussed: I reviewed recent notes and met with patient at bedside. He remains calm, cooperative and well-oriented to circumstances. Patient feels "pretty good", affect is constricted. Responses remain relevant to questioning and he does not appear to be responding to internal stimuli. Patient denies any new discomfort or pain The has chronic pain in his knees. He has been tolerating his medications and slept well again last night. Staff notes indicate that patient has been visible on the unit. He goes to groups but doesnt really participate. Has been very quiet and looks depressed. No alcohol withdrawal symptoms noted. There were no major behavioral issues over the weekend. Diagnostic Results: Rule out major depressive disorder Rule out substance-induced mood disorder Alcohol use disorder Alcohol withdrawal symptoms which are much better Medication Change: No ( ) Medical Record Reviewed: Yes Mental Status Examination - Cognitive Function Orientation: Person, Place, Situation, Time Memory: Intact Attention: WNL (some improvement) Concentration: Poor (some improvement) Association: WNL Fund of Knowledge: WNL - Mood Mood: Depressed ("pretty good'), Anxious - Affect Affect: Constricted - Speech Speech: Appropriate - Formal Thought Process Formal Thought Process: No Impairment - Suicidal Ideation Suicidal Ideation: No - Homicidal Ideation Homicidal Ideation: No Goal/Treatment Plan - Goal/Treatment Plan Need for Continued Stay: Remain at risks for inpatient hospitalization, Severe depression anxiety, Discharge may exacerbated symptoms, Severe functional impairment Progress Toward Problem(s) and Goals/Treatment Plan: * c/w current tx and plan * Tapered Ativan 1 mg po TID to 1 mg AMHS on 12/12/16 * No new weekend labs * Vitals reviewed and noted below: Selected Entries 12/11/16 12/11/16 12/11/16 06:38 08:56 16:54 Temperature 98 F Pulse Rate 81 81 87 Respiratory 18 Rate Blood Pressure 102/70 102/70 109/67 Estimated Date of D/C: 12/14/16 (we'll monitor closely)
[2016-12-13] MEDS: Multivitamin Therapeutic Tab PO SCH (09:12)
--- NOTE | 2016-12-13 17:22 | PCM.BM ---
Treatment Plan Problems - Problems identified on initial assessmt Hopelessness Date Initiated: 12/07/16 Time Initiated: 17:42 Assessment reference: NA Priority: 2 worthlessness Date Initiated: 12/07/16 Time Initiated: 17:44 Assessment reference: NA Status: Active Knowledge Deficit: Alcohol Use Date Initiated: 12/07/16 Time Initiated: 17:45 Assessment reference: NA Status: Active Priority: 3 Treatment assets and liabiliti Patient Assests: adapts well, cooperative, motivated, resourceful, ADL independent, cognitively intact, good interpersonal skills, strong noah Patient Liabilities: live alone, substance abuse, medical problems - Milieu Protocol Maintain good personal hygiene: daily Encourage regular showers, daily Remind patient to perform daily oral care, every shift Assist patient to perform ADL's Conduct patient checks and document Observation sheet: Q15 minutes Maintain personal safety: daily Educate patient to report safety concerns to staff, every shift Monitor environment for contraband/sharps Medication safety: Monitor for expected outcome, potential side effects: every shift, Assess barriers to learning: every shift, Assess readiness for medication education: every shift Milieu Narrative: * c/w current tx and plan * Tapered Ativan 1 mg po TID to 1 mg AMHS on 12/12/16 * No new weekend labs * Vitals reviewed and noted below: Selected Entries 12/11/16 12/11/16 12/11/16 06:38 08:56 16:54 Temperature 98 F Pulse Rate 81 81 87 Respiratory 18 Rate Blood Pressure 102/70 102/70 109/67 Discharge/Continuing Care - Education Needs Education Needs: Family Uses of Medical Equipment, Patient Medication, Patient Diagnosis/Disease Process, Patient Coping Skills, Patient Community resources, Patient Nutrition, Patient Health Practices/Safety - Discharge Discharge Criteria: Tolerates medication w/o severe side effects, Free of Suicidal thoughts, Free of Homicidal thoughts, No longer exhibiting s/s of withdrawal, Reduction of target symptoms Discharge to:: Home - Treatment Team Participation Patient/Family/SO Statement: * c/w current tx and plan * Tapered Ativan 1 mg po TID to 1 mg AMHS on 12/12/16 * No new weekend labs * Vitals reviewed and noted below: Selected Entries 12/11/16 12/11/16 12/11/16 06:38 08:56 16:54 Temperature 98 F Pulse Rate 81 81 87 Respiratory 18 Rate Blood Pressure 102/70 102/70 109/67 Treatment Plan Review - Problem Hopelessness Time Initiated: 17:42 worthlessness Time Initiated: 17:44 Knowledge Deficit: Alcohol Use Time Initiated: 17:45
--- NOTE | 2016-12-13 17:23 | PCM.BM ---
Treatment Plan Problems - Problems identified on initial assessmt Hopelessness Date Initiated: 12/07/16 Time Initiated: 17:42 Date resolved: 12/13/16 Assessment reference: NA Priority: 2 worthlessness Date Initiated: 12/07/16 Time Initiated: 17:44 Date resolved: 12/13/16 Assessment reference: NA Status: Active Knowledge Deficit: Alcohol Use Date Initiated: 12/07/16 Time Initiated: 17:45 Assessment reference: NA Status: Active Priority: 3 Treatment assets and liabiliti Patient Assests: adapts well, cooperative, motivated, resourceful, ADL independent, cognitively intact, good interpersonal skills, strong noah Patient Liabilities: live alone, substance abuse, medical problems - Milieu Protocol Maintain good personal hygiene: daily Encourage regular showers, daily Remind patient to perform daily oral care, every shift Assist patient to perform ADL's Conduct patient checks and document Observation sheet: Q15 minutes Maintain personal safety: daily Educate patient to report safety concerns to staff, every shift Monitor environment for contraband/sharps Medication safety: Monitor for expected outcome, potential side effects: every shift, Assess barriers to learning: every shift, Assess readiness for medication education: every shift Milieu Narrative: * c/w current tx and plan * Tapered Ativan 1 mg po TID to 1 mg AMHS on 12/12/16 * No new weekend labs * Vitals reviewed and noted below: Selected Entries 12/11/16 12/11/16 12/11/16 06:38 08:56 16:54 Temperature 98 F Pulse Rate 81 81 87 Respiratory 18 Rate Blood Pressure 102/70 102/70 109/67 Family Contact Family involvement: Family/SO is involved Discharge/Continuing Care - Education Needs Education Needs: Family Uses of Medical Equipment, Patient Medication, Patient Diagnosis/Disease Process, Patient Coping Skills, Patient Community resources, Patient Nutrition, Patient Health Practices/Safety - Discharge Discharge Criteria: Tolerates medication w/o severe side effects, Free of Suicidal thoughts, Free of Homicidal thoughts, No longer exhibiting s/s of withdrawal, Reduction of target symptoms Discharge to:: Home - Treatment Team Participation Patient/Family/SO Statement: * c/w current tx and plan * Tapered Ativan 1 mg po TID to 1 mg AMHS on 12/12/16 * No new weekend labs * Vitals reviewed and noted below: Selected Entries 12/11/16 12/11/16 12/11/16 06:38 08:56 16:54 Temperature 98 F Pulse Rate 81 81 87 Respiratory 18 Rate Blood Pressure 102/70 102/70 109/67 Treatment Plan Review - Problem Hopelessness Time Initiated: 17:42 worthlessness Time Initiated: 17:44 Knowledge Deficit: Alcohol Use Time Initiated: 17:45
[2016-12-14 07:01] VITALS: RESP 18; TEMP 97.6
[2016-12-14] MEDS: Multivitamin Therapeutic Tab PO SCH (09:35)
--- NOTE | 2016-12-14 16:12 | PN ---
Covering for Dr. Kohler. Chart reviewed and case discussed with staff. The patient was interviewed in treatment team. The patient is a 70-year-old male, who has a history of alcohol use and who had been depressed. He is alert, oriented to 3 spheres, pleasant, with an improved mood and affect. He is not suicidal, homicidal, or psychotic. The patient has indicated that he had suffered a lot of losses recently, which is why he had been drinking about a pint of vodka daily. He lives alone and he had developed feelings of helplessness and hopelessness. Pharmacologically, he has been maintained on aspirin, trazodone 50 mg at bedtime, folic acid 1 mg daily, isosorbide 30 mg daily, Lipitor 20 mg daily, Pepcid 40 mg at bedtime, and Prozac 20 mg daily. I have started him on naltrexone 50 mg daily to help assist him with his alcohol use disorder. His laboratory results were reviewed (with his last visit blood testing on 12/08/2016). Pulse rate 94, blood pressure 80/50, temperature 97.8, and respiratory rate 20. Corey Nickerson MD/ PhD
[2016-12-14 16:49] VITALS: BP 85/55; PULSE 78
== END 2016-12-14 18:54 | disposition home or self-care (01) | DRG 881 ==
LOC: PSYC 15:02
PROVIDERS: ADMIT Psychiatry & Neurology Psychiatry; ATTEND Psychiatry & Neurology Psychiatry
DX: F32.9 Major depressive disorder, single episode, unspecified (principal); F10.239 Alcohol dependence with withdrawal, unspecified; E87.2 Acidosis; J44.9 Chronic obstructive pulmonary disease, unspecified; I10 Essential (primary) hypertension; F17.210 Nicotine dependence, cigarettes, uncomplicated; F12.90 Cannabis use, unspecified, uncomplicated; M25.561 Pain in right knee; G56.00 Carpal tunnel syndrome, unspecified upper limb; F41.1 Generalized anxiety disorder; I25.2 Old myocardial infarction

== ENCOUNTER 2017-01-01 12:49 | Observation (INO) | payer MEDICARE ==
[2017-01-01 12:49] VITALS: BMI 20.9
[2017-01-01] MEDS ORDERED: Sodium Chloride 0.9% 1,000 ML IV ONE (12:59)
--- NOTE | 2017-01-01 13:03 | ED PDOC ---
Arrival/HPI - General Chief Complaint: Syncope Time Seen by Provider: 01/01/17 12:50 Historian: Patient, EMS - History of Present Illness Time/Duration: Prior to Arrival Symptom Onset: Sudden Symptom Course: Improving Associated Symptoms (Text): 01/01/17 13:00 Patient was at a store shopping scratching off his lottery ticket when he suddenly felt weak dizzy and lightheaded and then had a witnessed syncopal episode. There is no seizure activity. No chest pain palpitations or dyspnea. No nausea or vomiting. No trauma. No bowel or bladder incontinence. No tongue biting. No history of syncope. He reports he stopped drinking approximately 3 weeks ago. Past Medical History - Infectious Disease Hx of Infectious Diseases: None - Tetanus Immunization Tetanus Immunization: Unknown - Cardiac Hx Cardiac Disorders: Yes Hx Hypertension: Yes - Pulmonary Hx Chronic Obstructive Pulmonary Disease (COPD): Yes - Neurological Hx Neurological Disorder: Yes (SYNCOPE) Hx Dizziness: Yes - HEENT Hx HEENT Disorder: Yes Hx Cataracts: Yes (R eye with surgery) - Renal Hx Renal Disorder: No - Endocrine/Metabolic Hx Endocrine Disorders: No - Hematological/Oncological Hx Blood Disorders: No - Integumentary Hx Dermatological Disorder: Yes Other/Comment: H/O CELLULITIS ABSCESS TO FINGERS (2013), right forehead cyst - Musculoskeletal/Rheumatological Hx Arthritis: Yes - Gastrointestinal Hx Gastrointestinal Disorders: Yes - Genitourinary/Gynecological Hx Genitourinary Disorders: No - Psychiatric Hx Psychophysiologic Disorder: No Hx Substance Use: Yes (occasional use of marijuana) - Surgical History Hx Cardiac Catheterization: Yes Hx Coronary Stent: Yes (x2) Other/Comment: cyst removed from R hand, R cataract surgery - Anesthesia Hx Anesthesia: Yes Hx Anesthesia Reactions: No Hx Malignant Hyperthermia: No - Suicidal Assessment Feels Threatened In Home Enviroment: No Family/Social History - Physician Review Nursing Documentation Reviewed: Yes Family/Social History: Unknown Family HX Smoking Status: Heavy Smoker > 10 Cigarettes Daily Hx Alcohol Use: Yes (0.5 Pint daily) Hx Substance Use: Yes (occasional use of marijuana) Allergies/Home Meds Allergies/Adverse Reactions: Allergies No Known Allergies Allergy (Verified 01/01/17 12:58) Review of Systems - Physician Review All systems were reviewed & negative as marked: Yes - Review of Systems Constitutional: Fatigue. absent: Fevers Respiratory: absent: SOB, Cough, Wheezing Cardiovascular: Syncope. absent: Chest Pain, Palpitations Gastrointestinal: absent: Abdominal Pain, Constipation, Diarrhea, Nausea, Vomiting Genitourinary Male: absent: Dysuria, Frequency, Hematuria Neurological: Dizziness. absent: Headache, Focal Weakness, Gait Changes Physical Exam Vital Signs Temp Pulse Resp BP Pulse Ox 01/01/17 15:22 60 25 H 111/62 100 01/01/17 14:31 97.7 F 80 18 97/61 L 99 01/01/17 13:20 95.4 F L 01/01/17 13:08 98.2 F 70 17 87/62 L 100 01/01/17 12:55 98.2 F 80 19 89/32 L 98 Temperature: Afebrile Blood Pressure: Hypotensive Pulse: Regular Respiratory Rate: Normal Appearance: Positive for: Well-Appearing, Non-Toxic, Comfortable Pain Distress: None Mental Status: Positive for: Alert and Oriented X 3 - Systems Exam Head: Present: Atraumatic, Normocephalic Pupils: Present: PERRL Extroacular Muscles: Present: EOMI Conjunctiva: Present: Normal Mouth: Present: Moist Mucous Membranes Pharnyx: No: ERYTHEMA, EXUDATE, TONSILS ENLARGED Neck: Present: Normal Range of Motion. No: MIDLINE TENDERNESS, Paraspinal Tenderness Respiratory/Chest: Present: Clear to Auscultation, Good Air Exchange, Decreased Breath Sounds. No: Respiratory Distress, Accessory Muscle Use Cardiovascular: Present: Regular Rate and Rhythm, Normal S1, S2. No: Murmurs Abdomen: Present: Normal Bowel Sounds. No: Tenderness, Distention, Peritoneal Signs, Rebound, Guarding Back: Present: Normal Inspection. No: CVA Tenderness, Midline Tenderness, Paraspinal Tenderness Upper Extremity: Present: Normal Inspection. No: Cyanosis, Edema Lower Extremity: Present: Normal Inspection. No: Edema Neurological: Present: GCS=15, CN II-XII Intact, Speech Normal, Motor Func Grossly Intact, Normal Cerebellar Funct Skin: Present: Warm, Dry, Normal Color. No: Rashes Psychiatric: Present: Alert, Oriented x 3, Normal Insight, Normal Concentration Medical Decision Making ED Course and Treatment: 01/01/17 13:25 EKG shows sinus arrhythmia rate approximately 70 with a right bundle branch block which is similar to EKG of 12/05/[address] or T-wave changes - Lab Interpretations Lab Results: 01/01/17 13:00 01/01/17 13:40 Lab Results 01/01/17 13:40: Sodium 139, Potassium 4.0, Chloride 105, Carbon Dioxide 28, Anion Gap 10, BUN 9, Creatinine 0.8, Est GFR ( Amer) > 60, Est GFR (Non- Af Amer) > 60, Random Glucose 100, Calcium 8.3 L, Phosphorus 2.9, Magnesium 1.5 L, Total Bilirubin 0.6, AST 25, ALT 35, Alkaline Phosphatase 53, Lactate Dehydrogenase 332 L, Total Creatine Kinase 167, Troponin I < 0.01, Total Protein 5.3 L, Albumin 3.0, Globulin 2.3, Albumin/Globulin Ratio 1.3 01/01/17 13:00: Alcohol, Quantitative < 10 01/01/17 13:00: PT 11.6, INR 1.07, APTT 29.2 01/01/17 13:00: WBC 4.5 D, RBC 4.23, Hgb 14.1, Hct 42.7, MCV 100.9, MCH 33.3, MCHC 33.0, RDW 13.5, Plt Count 200, MPV 12.0 H, Gran % 43.9 L, Lymph % (Auto) 42.2 H, Elbert % (Auto) 12.1 H, Eos % (Auto) 1.6, Baso % (Auto) 0.2, Gran # 1.96, Lymph # 1.9, Elbert # 0.5, Eos # 0.1, Baso # 0.01 - RAD Interpretation Radiology Orders: 01/01/17 12:58 HEAD W/O CONTRAST [CT] Stat 01/01/17 12:59 CHEST PORTABLE [RAD] Stat CT scan of the head as read by the radiologist shows no acute findings. Chest x- ray shows no acute findings. [employer]: Radiologist - Medication Orders Current Medication Orders: Discontinued Medications Sodium Chloride (Sodium Chloride 0.9%) 1,000 mls @ 500 mls/hr IV ONCE ONE Stop: 01/01/17 14:58 Last Admin: 01/01/17 13:08 Dose: 500 mls/hr Disposition/Present on Arrival - Present on Arrival Any Indicators Present on Arrival: No History of DVT/PE: No History of Uncontrolled Diabetes: No Urinary Catheter: No History of Decub. Ulcer: No History Surgical Site Infection Following: None - Disposition Have Diagnosis and Disposition been Completed?: Yes Diagnosis: Syncope, Hypotension Disposition: HOSPITALIZED Disposition Time: 15:46 Patient Plan: Observation, Telemetry Condition: FAIR Discharge Instructions (ExitCare): Syncope (ED) Referrals: Segundo Garrett MD [Primary Care Provider] - Follow up with primary Forms: [employer] (Romansh)
--- NOTE | 2017-01-01 13:21 | RAD ---
HISTORY: syncope COMPARISON: Chest x-ray performed 12/05/16 TECHNIQUE: Chest, one view. FINDINGS: LUNGS: No focal consolidation. Please note that chest x-ray has limited sensitivity for the detection of pulmonary masses. PLEURA: No significant pleural effusion identified. No definite pneumothorax . CARDIOVASCULAR: Heart size appears within normal limits. Dense atherosclerotic calcification of the aortic knob. OSSEOUS STRUCTURES: Degenerative changes of the spine. VISUALIZED UPPER ABDOMEN: Unremarkable. OTHER FINDINGS: None. IMPRESSION: No focal consolidation, significant pleural effusion, or definite pneumothorax identified.
[2017-01-01 13:25] LABS: INR 1.07 (0.93-1.08); PARTIAL THROMBOPLASTIN TIME 29.2 Seconds (23.7-30.8)
[2017-01-01 13:34] LABS: BASO # 0.01 K/mm3 (0.0-2.0); BASO % 0.2 % (0.0-3.0); EOS # 0.1 (0.0-0.7); EOS % 1.6 % (1.5-5.0); GRAN # 1.96 (1.4-6.5); GRAN % 43.9 % (50.0-68.0); HEMATOCRIT 42.7 % (42.0-52.0); LYMPH # 1.9 (1.2-3.4); LYMPH % 42.2 % (22.0-35.0); MEAN CELL VOLUME 100.9 fl (80.0-105.0); MEAN CORPUSCULAR HEMOGLOBIN 33.3 pg (25.0-35.0); MONO # 0.5 (0.1-0.6); MONO % 12.1 % (1.0-6.0); RED CELL DISTRIBUTION WIDTH 13.5 % (11.5-14.5); WHITE BLOOD COUNT 4.5 10^3/ul (4.5-11.0)
[2017-01-01 14:17] LABS: ALB/GLOB RATIO 1.3 (1.1-1.8); ALKALINE PHOSPHATASE 53 U/L (38-126); ALT/SGPT 35 U/L (7-56); AST/SGOT 25 U/L (17-59); BILIRUBIN,TOTAL 0.6 mg/dL (0.2-1.3); BLOOD UREA NITROGEN 9 mg/dL (7-21); CALCIUM 8.3 mg/dL (8.4-10.5); CARBON DIOXIDE 28 mmol/L (21-33); CHLORIDE 105 mmol/L (98-107); GFR AFRICAN-AMERICAN > 60; GLUCOSE,RANDOM 100 mg/dL (70-110); MAGNESIUM 1.5 mg/dL (1.7-2.2); PHOSPHOROUS 2.9 mg/dL (2.5-4.5); SODIUM 139 mmol/L (132-148); TOTAL PROTEIN 5.3 g/dL (5.8-8.3)
[2017-01-01 14:26] LABS: TROPONIN I < 0.01 ng/mL
--- NOTE | 2017-01-01 15:31 | CT ---
PROCEDURE: CT HEAD WITHOUT CONTRAST. HISTORY: syncope COMPARISON: Noncontrast head CT performed 06/05/15 TECHNIQUE: Axial computed tomography images were obtained through the head/brain without intravenous contrast. Radiation dose: Total exam DLP = 822.62 mGy-cm. This CT exam was performed using one or more of the following dose reduction techniques: Automated exposure control, adjustment of the mA and/or kV according to patient size, and/or use of iterative reconstruction technique. FINDINGS: HEMORRHAGE: No intracranial hemorrhage. BRAIN: Diffuse atrophy with prominence of the ventricles and sulci noted. No mass effect or edema. The sparks-white matter differentiation appears intact. Please note that MRI with diffusion imaging is more sensitive in the detection of acute ischemic event. VENTRICLES: No hydrocephalus. CALVARIUM: Unremarkable. PARANASAL SINUSES: Unremarkable as visualized. No significant inflammatory changes. MASTOID AIR CELLS: Unremarkable as visualized. No inflammatory changes. OTHER FINDINGS: 0.5 x 1.9 cm lipoma along the right frontal scalp. Partial opacification of the left external auditory canal, likely cerumen. IMPRESSION: No acute intracranial pathology identified.
[2017-01-01 15:58] LABS: URINE BILIRUBIN NEGATIVE (NEGATIVE); URINE BLOOD NEGATIVE (NEGATIVE); URINE GLUCOSE (UA) NEGATIVE (NEGATIVE); URINE KETONE NEGATIVE (NEGATIVE); URINE LEUKOCYTE ESTERASE NEGATIVE Leu/uL (NEGATIVE); URINE PROTEIN NEGATIVE mg/dL (<30 mg/dL); URINE UROBILINOGEN 0.2 E.U./dL (<1 E.U./dL)
[2017-01-01 16:00] LABS: URINE APPEARANCE CLEAR (CLEAR); URINE COLOR YELLOW (YELLOW)
[2017-01-01] MEDS ORDERED: Pneumococcal 23-Valent Vaccine IM ONE (19:48)
--- NOTE | 2017-01-02 01:17 | CP.PCM.PN ---
Subjective - Date & Time of Evaluation Date of Evaluation: 01/02/17 Time of Evaluation: 01:16 - Subjective Subjective: Patient was seen because he complained of headache.BP-103/61,98.4*F I had ordered tylenol for him. Has no complaints now.Headache has subsided after he received tylenol. It was mild, frontal headache. No dizziness, no nausea, no ear/eyes/nose symptoms.No weakness.No paraesthesia. Medical record was reviewed. This 71 year old male was admitted with sob, generalized weakness , weight loss, Has PMH of NSTEMI, OA,ETOH, asthma, HTN,depression, alcohol use occasionally, smoker, occasional use of marijuana. Objective - Vital Signs/Intake and Output Vital Signs (last 24 hours): Temp Pulse Resp BP Pulse Ox 98.1 F 70 16 118/74 99 01/01/17 19:22 01/01/17 22:00 01/01/17 19:22 01/01/17 19:22 01/01/17 17:45 - Medications Medications: Current Medications Aspirin (Aspirin) 325 mg PO DAILY NICHELLE Famotidine (Pepcid) 40 mg PO HS NICHELLE Last Admin: 01/01/17 21:19 Dose: 40 mg Fluoxetine HCl (Prozac) 20 mg PO DAILY NICHELLE Multivitamins/Minerals (Therapeutic-M Tab) 1 tab PO 0800 NICHELLE Naltrexone HCl (Revia) 50 mg PO DAILY NICHELLE Trazodone HCl (Desyrel) 50 mg PO HS PRN PRN Reason: Sleep - Labs Labs: PT 11.6 Seconds (9.9-11.8) 01/01/17 13:00 INR 1.07 (0.93-1.08) 01/01/17 13:00 APTT 29.2 Seconds (23.7-30.8) 01/01/17 13:00 Most Recent Lab Values WBC 4.5 10^3/ul (4.5-11.0) D 01/01/17 13:00 RBC 4.23 10^6/uL (3.5-6.1) 01/01/17 13:00 Hgb 14.1 g/dL (14.0-18.0) 01/01/17 13:00 Hct 42.7 % (42.0-52.0) 01/01/17 13:00 MCV 100.9 fl (80.0-105.0) 01/01/17 13:00 MCH 33.3 pg (25.0-35.0) 01/01/17 13:00 MCHC 33.0 g/dl (31.0-37.0) 01/01/17 13:00 RDW 13.5 % (11.5-14.5) 01/01/17 13:00 Plt Count 200 10^3/uL (120.0-450.0) 01/01/17 13:00 MPV 12.0 fl (7.0-11.0) H 01/01/17 13:00 Gran % 43.9 % (50.0-68.0) L 01/01/17 13:00 Lymph % (Auto) 42.2 % (22.0-35.0) H 01/01/17 13:00 [place] % (Auto) 12.1 % (1.0-6.0) H 01/01/17 13:00 Eos % (Auto) 1.6 % (1.5-5.0) 01/01/17 13:00 Baso % (Auto) 0.2 % (0.0-3.0) 01/01/17 13:00 Gran # 1.96 (1.4-6.5) 01/01/17 13:00 Lymph # 1.9 (1.2-3.4) 01/01/17 13:00 [place] # 0.5 (0.1-0.6) 01/01/17 13:00 Eos # 0.1 (0.0-0.7) 01/01/17 13:00 Baso # 0.01 K/mm3 (0.0-2.0) 01/01/17 13:00 PT 11.6 Seconds (9.9-11.8) 01/01/17 13:00 INR 1.07 (0.93-1.08) 01/01/17 13:00 APTT 29.2 Seconds (23.7-30.8) 01/01/17 13:00 Sodium 139 mmol/L (132-148) 01/01/17 13:40 Potassium 4.0 mmol/L (3.6-5.0) 01/01/17 13:40 Chloride 105 mmol/L (98-107) 01/01/17 13:40 Carbon Dioxide 28 mmol/L (21-33) 01/01/17 13:40 Anion Gap 10 (10-20) 01/01/17 13:40 BUN 9 mg/dL (7-21) 01/01/17 13:40 Creatinine 0.8 mg/dL (0.5-1.4) 01/01/17 13:40 Est GFR ( Amer) > 60 01/01/17 13:40 Est GFR (Non-Af Amer) > 60 01/01/17 13:40 POC Glucose (mg/dL) 87 mg/dL (65-110) 01/01/17 13:14 Random Glucose 100 mg/dL (70-110) 01/01/17 13:40 Calcium 8.3 mg/dL (8.4-10.5) L 01/01/17 13:40 Phosphorus 2.9 mg/dL (2.5-4.5) 01/01/17 13:40 Magnesium 1.5 mg/dL (1.7-2.2) L 01/01/17 13:40 Total Bilirubin 0.6 mg/dL (0.2-1.3) 01/01/17 13:40 AST 25 U/L (17-59) 01/01/17 13:40 ALT 35 U/L (7-56) 01/01/17 13:40 Alkaline Phosphatase 53 U/L (38-126) 01/01/17 13:40 Lactate Dehydrogenase 332 U/L (333-699) L 01/01/17 13:40 Total Creatine Kinase 167 U/L (35-230) 01/01/17 13:40 Troponin I < 0.01 ng/mL 01/01/17 13:40 Total Protein 5.3 g/dL (5.8-8.3) L 01/01/17 13:40 Albumin 3.0 g/dL (3.0-4.8) 01/01/17 13:40 Globulin 2.3 gm/dL 01/01/17 13:40 Albumin/Globulin Ratio 1.3 (1.1-1.8) 01/01/17 13:40 Urine Color Yellow (YELLOW) 01/01/17 13:30 Urine Appearance Clear (CLEAR) 01/01/17 13:30 Urine pH 6.0 (4.7-8.0) 01/01/17 13:30 Ur Specific [place] 1.025 (1.005-1.035) 01/01/17 13:30 Urine Protein Negative mg/dL (<30 mg/dL) 01/01/17 13:30 Urine Glucose (UA) Negative mg/dL (NEGATIVE) 01/01/17 13:30 Urine Ketones Negative mg/dL (NEGATIVE) 01/01/17 13:30 Urine Blood Negative (NEGATIVE) 01/01/17 13:30 Urine Nitrate Negative (NEGATIVE) 01/01/17 13:30 Urine Bilirubin Negative (NEGATIVE) 01/01/17 13:30 Urine Urobilinogen 0.2 E.U./dL (<1 E.U./dL) 01/01/17 13:30 Ur Leukocyte Esterase Negative [place]/uL (NEGATIVE) 01/01/17 13:30 Urine Opiates Screen Negative (NEGATIVE) 01/01/17 15:30 Urine Methadone Screen Negative (NEGATIVE) 01/01/17 15:30 Ur Barbiturates Screen Negative (NEGATIVE) 01/01/17 15:30 Ur Phencyclidine Scrn Negative (NEGATIVE) 01/01/17 15:30 Ur Amphetamines Screen Negative (NEGATIVE) 01/01/17 15:30 U Benzodiazepines Scrn Negative (NEGATIVE) 01/01/17 15:30 U Oth Cocaine Metabols Negative (NEGATIVE) 01/01/17 15:30 U Cannabinoids Screen Negative (NEGATIVE) 01/01/17 15:30 Alcohol, Quantitative < 10 mg/dL (0-10) 01/01/17 13:00 - Constitutional Appears: Well, No Acute Distress - Head Exam Head Exam: ATRAUMATIC, NORMAL INSPECTION, NORMOCEPHALIC - Eye Exam Eye Exam: Normal appearance - ENT Exam ENT Exam: Normal External Ear Exam - Neck Exam Neck Exam: Normal Inspection - Respiratory Exam Respiratory Exam: NORMAL BREATHING PATTERN - Cardiovascular Exam Cardiovascular Exam: absent: JVD - GI/Abdominal Exam GI & Abdominal Exam: absent: Distended - Rectal Exam Rectal Exam: Deferred - Exam Additional comments: Deferred. - Extremities Exam Extremities Exam: Normal Inspection - Back Exam Back Exam: NORMAL INSPECTION - Neurological Exam Neurological Exam: Alert, Oriented x3 - Psychiatric Exam Psychiatric exam: Normal Affect, Normal Mood - Skin Skin Exam: Normal Color Assessment and Plan - Assessment and Plan (Free Text) Assessment: Headache. NSTEMI. Asthma. OA. Alcohol use occasionally. Smoker. Marijuana use occasionally. Plan: Tylenol 650 mg PO stat. Continue present management.
[2017-01-02 01:20] VITALS: RESP 18
--- NOTE | 2017-01-02 01:56 | CARD ---
APPROVED REPORT EKG Measurement Heart [id number] <Conclusion> Normal sinus rhythm Right bundle branch block Abnormal ECG
[2017-01-02 06:30] VITALS: BP 100/62; PULSE 68; TEMP 98.6; O2SAT 95
[2017-01-02 06:52] LABS: BASO # 0.01 K/mm3 (0.0-2.0); BASO % 0.2 % (0.0-3.0); EOS # 0.1 (0.0-0.7); EOS % 2.3 % (1.5-5.0); GRAN # 2.31 (1.4-6.5); GRAN % 52.2 % (50.0-68.0); HEMATOCRIT 37.5 % (42.0-52.0); LYMPH # 1.4 (1.2-3.4); LYMPH % 31.7 % (22.0-35.0); MEAN CELL VOLUME 100.5 fl (80.0-105.0); MEAN CORPUSCULAR HEMOGLOBIN 32.7 pg (25.0-35.0); MEAN CORPUSCULAR HGB CONC 32.5 g/dl (31.0-37.0); MEAN PLATELET VOLUME 11.6 fl (7.0-11.0); MONO # 0.6 (0.1-0.6); MONO % 13.6 % (1.0-6.0); RED CELL DISTRIBUTION WIDTH 13.6 % (11.5-14.5); WHITE BLOOD COUNT 4.4 10^3/ul (4.5-11.0)
[2017-01-02 06:58] LABS: ALB/GLOB RATIO 1.3 (1.1-1.8); ALKALINE PHOSPHATASE 58 U/L (38-126); ALT/SGPT 31 U/L (7-56); AST/SGOT 26 U/L (17-59); BILIRUBIN,TOTAL 0.5 mg/dL (0.2-1.3); BLOOD UREA NITROGEN 11 mg/dL (7-21); CHLORIDE 104 mmol/L (98-107); GFR AFRICAN-AMERICAN > 60; GLUCOSE,RANDOM 86 mg/dL (70-110); POTASSIUM 4.1 mmol/L (3.6-5.0); SODIUM 140 mmol/L (132-148); TOTAL PROTEIN 5.7 g/dL (5.8-8.3)
[2017-01-02] MEDS ORDERED: Sodium Chloride 0.9% 1,000 ML IV STA (07:31)
[2017-01-02] MEDS ORDERED: Magnesium Sulfate 2 GM in Sodium Chloride 0.9% 100 ML IV ONE (07:34)
[2017-01-02 07:51] LABS: CARBON DIOXIDE 29 mmol/L (21-33)
[2017-01-02] MEDS ORDERED: Multivitamin With Minerals Tab PO SCH (08:00)
--- NOTE | 2017-01-02 09:39 | HP ---
HISTORY OF PRESENT ILLNESS: This is a 71-year-old male who is coming into the hospital. He was at a store shopping and he felt weak and dizzy. He says he was feeling lightheaded. The patient did not have breakfast in the morning. He also has been taking his blood pressure medication. He was found to be hypotensive. The patient had no seizure activity. He had no palpitations. He had no nausea and no vomiting. He had been drinking, but he says he stopped drinking about 3 weeks ago. He has no fevers, no chills, no nausea, no vomiting, and no abdominal pain. No back pain. No dysuria, no frequency, and no nocturia. REVIEW OF SYSTEMS: All other review of symptoms are within ford limits except as mentioned. ALLERGIES: No known drug allergies. MEDICATIONS: The MAR has been reviewed. PAST MEDICAL HISTORY: Osteoarthritis, ST-elevation [place], asthma, hypertension, and cellulitis of the fingers. SOCIAL HISTORY: He had been drinking heavily with 1 pint a day. He occasionally smokes, he smokes half a pack per day. He says he stopped drinking about 3 weeks ago. PAST SURGICAL HISTORY: Cyst removal of the right hand and cataract of the right eye. FAMILY HISTORY: Noncontributory. PHYSICAL EXAMINATION: VITAL SIGNS: Temperature is 98.6, pulse is 68, blood pressure is 100/62, respirations are 18, and O2 saturation is 95%. GENERAL: The patient lying in bed, uncomfortable, and in no acute distress. HEENT: Atraumatic and normocephalic. Anicteric sclerae. Moist mucosa. [place] conjunctivae. No oral lesions. There is about 2 cm right frontal scalp lipoma that can be felt. NECK: No JVD, anterior and posterior adenopathy, thyromegaly, or bruits. CARDIOVASCULAR: S1 and S2 regular. No murmur, rubs, or gallop. LUNGS: Clear to auscultation bilaterally. No wheezes, rales, or rhonchi. ABDOMEN: Bowel sounds are positive. Soft, nontender and nondistended. No hepatosplenomegaly. No rebound and no guarding EXTREMITIES: No cyanosis, clubbing, or edema. NEUROLOGIC: No facial asymmetry. Tongue is midline. No uvula deviation. Power is 5/5 upper extremity and lower extremity. Sensation intact in upper extremity and lower extremity. PSYCHIATRIC: He is awake, alert and oriented x3. No anxiety or depression. He has normal affect. GENITOURINARY: No CVA tenderness. VASCULAR: 2+ pulses in the carotid pulses and pedal pulses. SKIN: No erythema or nodules SPINE: Shows normal curvature. EXTREMITIES: No Cyanosis and clubbing, no edema. LABORATORY DATA: Sodium is 139, creatinine is 0.9, magnesium is 1.5, and troponin is 0.01. Toxicology: Urine tox is negative. Alcohol is less than 10. Urine shows ketones negative, blood is negative, and nitrates are negative. INR is 1.07. White count of 4.5, hemoglobin is 14.1, and platelet count is 200,000. DIAGNOSTIC DATA: EKG done shows heart rate of 71 with sinus rhythm. QTC is 475. A CT of the head done shows no acute intracranial pathology. There is a lipoma of 0.5 x 1.9 cm along the right frontal scalp. Chest x-ray done shows no infiltrates. ASSESSMENT: 1. Hypotension. 2. History of alcoholism, now alcohol free for 3 weeks. 3. History of hypertension. 4. Dizziness. 5. Lipoma of the central scalp of 0.5 x 1.9 cm. PLAN: The patient was admitted to the hospital because of hypotension, most likely from decreased p.o. intake as well as being on his blood pressure medication, I will discontinue the patient/s blood pressure medication with isosorbide and also the lisinopril. He is hypomagnesemia, we will place his magnesium. The patient is going to be on aspirin daily. He is going to continue with his trazodone. He is on Prozac as well. The patient is going to get another liter of fluid. He is going to be discharged home to follow up as an outpatient. Salvador Pérez MD
== END 2017-01-02 11:25 | disposition home or self-care (01) ==
LOC: ED 12:49 → ERH 15:44 → 2RSO 17:48
PROVIDERS: ADMIT Internal Medicine Nephrology; ATTEND Internal Medicine Nephrology
DX: I95.9 Hypotension, unspecified (principal); R55 Syncope and collapse; I10 Essential (primary) hypertension; R51 Headache; R42 Dizziness and giddiness; J44.9 Chronic obstructive pulmonary disease, unspecified; D17.0 Benign lipomatous neoplasm of skin and subcutaneous tissue of head, face and neck; E83.42 Hypomagnesemia; I25.2 Old myocardial infarction; F12.90 Cannabis use, unspecified, uncomplicated; F17.210 Nicotine dependence, cigarettes, uncomplicated; M19.90 Unspecified osteoarthritis, unspecified site; Z95.5 Presence of coronary angioplasty implant and graft
CPT/HCPCS: 36415; 70450; 71010; 80053; 81003; 82550; 82948; 83615; 83735; 84100; 84484; 85025; 85610; 85730; 93005; 99285; G0378; G0480; J3475; J7040

== ENCOUNTER 2017-10-08 20:56 | Inpatient (IN) | payer MEDICARE ==
--- NOTE | 2017-10-08 21:18 | ED PDOC ---
Arrival/HPI - General Time Seen by Provider: 10/08/17 20:57 Historian: Patient - History of Present Illness Narrative History of Present Illness (Text): 10/08/17 21:15 A 71 year old male, whose past medical history includes subdural hematoma, osteoarthritis, NSTEMI, asthma, hypertension, presents to the emergency department for a complaint of mild shortness of breath, headache, and dizziness. The patient notes that he is a smoker and admits to drinking alcohol today. The patient denies weakness, tingling, numbness, chills, fevers, LOC, chest pain, cough, sore throat, nausea, vomiting, diarrhea, abdominal pain, neck pain, back pain, urinary/bowel changes or incontinence, trauma/fall/injury , or any other complaints. PMD: Dr. Pérez Time/Duration: Prior to Arrival Symptom Onset: Sudden Symptom Course: Unchanged Activities at Onset: Rest, Light Context: Home Past Medical History - Provider Review Nursing Documentation Reviewed: Yes - Infectious Disease Hx of Infectious Diseases: None - Tetanus Immunization Tetanus Immunization: Unknown - Cardiac Hx Cardiac Disorders: Yes Hx Hypertension: Yes - Pulmonary Hx Respiratory Disorders: Yes Hx Chronic Obstructive Pulmonary Disease (COPD): Yes - Neurological Hx Neurological Disorder: Yes (SYNCOPE) Hx Dizziness: Yes - HEENT Hx HEENT Disorder: Yes Hx Cataracts: Yes (R eye with surgery) - Renal Hx Renal Disorder: No - Endocrine/Metabolic Hx Endocrine Disorders: No - Hematological/Oncological Hx Blood Disorders: No - Integumentary Hx Dermatological Disorder: Yes Other/Comment: H/O CELLULITIS ABSCESS TO FINGERS (2013), right forehead cyst - Musculoskeletal/Rheumatological Hx Musculoskeletal Disorders: Yes Hx Arthritis: Yes - Gastrointestinal Hx Gastrointestinal Disorders: Yes Hx Constipation: Yes - Genitourinary/Gynecological Hx Genitourinary Disorders: No - Psychiatric Hx Psychophysiologic Disorder: Yes (ETOH ABUSE. QUIT 3 WKS AGO,SMOKES CIGARETTES ,OCCASIONAL MARIJUANA) Hx Substance Use: Yes (OCCASIONAL MARIJUANA USE) - Surgical History Hx Appendectomy: Yes Hx Cardiac Catheterization: Yes Hx Coronary Stent: Yes (x2) Other/Comment: cyst removed from R hand, R cataract surgery - Anesthesia Hx Anesthesia: Yes Hx Anesthesia Reactions: No Hx Malignant Hyperthermia: No - Suicidal Assessment Feels Threatened In Home Enviroment: No Family/Social History - Physician Review Nursing Documentation Reviewed: Yes Family/Social History: No Known Family HX Smoking Status: Light Smoker < 10 Cigarettes Daily Hx Alcohol Use: Yes Frequency of alcohol use: Few days per week Hx Substance Use: Yes (OCCASIONAL MARIJUANA USE) Allergies/Home Meds Allergies/Adverse Reactions: Allergies No Known Allergies Allergy (Verified 05/04/17 18:44) Home Medications: Home Meds Medication Instructions Recorded Confirmed Isosorbide Mononitrate [Isosorbide 30 mg PO DAILY 05/04/17 05/04/17 Mononitrate ER] Review of Systems - Physician Review All systems were reviewed & negative as marked: Yes - Review of Systems Constitutional: absent: Fevers, Night Sweats ENT: absent: Sore Throat Respiratory: SOB. absent: Cough Cardiovascular: absent: Chest Pain Gastrointestinal: absent: Abdominal Pain, Stool Changes, Diarrhea, Nausea, Vomiting Genitourinary Male: absent: Urinary Output Changes Musculoskeletal: absent: Back Pain, Neck Pain Neurological: Headache, Dizziness Physical Exam Vital Signs Reviewed: Yes Vital Signs Temp Pulse Resp BP Pulse Ox 10/08/17 23:48 98.6 F 75 20 106/58 L 97 10/08/17 22:56 98.6 F 85 20 95/62 L 98 10/08/17 21:04 97.9 F 88 18 107/92 H 97 Temperature: Afebrile Blood Pressure: Hypertensive Pulse: Regular Respiratory Rate: Normal Appearance: Positive for: Well-Appearing, Non-Toxic, Comfortable Pain Distress: None Mental Status: Positive for: Alert and Oriented X 3 - Systems Exam Head: Present: Atraumatic, Normocephalic Pupils: Present: PERRL Extroacular Muscles: Present: EOMI Conjunctiva: Present: Normal Mouth: Present: Moist Mucous Membranes Neck: Present: Normal Range of Motion Respiratory/Chest: Present: Wheezes (Wheezing bilaterally) Cardiovascular: Present: Regular Rate and Rhythm, Normal S1, S2. No: Murmurs Abdomen: No: Tenderness, Distention, Peritoneal Signs Back: Present: Normal Inspection Upper Extremity: Present: Normal Inspection. No: Cyanosis, Edema Lower Extremity: Present: Normal Inspection. No: Edema Neurological: Present: GCS=15, CN II-XII Intact, Speech Normal Skin: Present: Warm, Dry, Normal Color. No: Rashes Psychiatric: Present: Alert, Oriented x 3, Normal Insight, Normal Concentration Medical Decision Making ED Course and Treatment: 10/08/17 21:19 Impression: A 71 year old male is brought into the emergency department for a complaint of mild shortness of breath, headache, and dizziness this evening. Plan: -- Head CT -- EKG -- Chest X-Ray -- Labs -- Urinalysis -- Medrol and Duoneb -- Reassess and disposition Progress Notes: 10/08/17 21:20 EKG: Ordered, reviewed, and independently interpreted the EKG. Rate : 88 BPM Rhythm : NSR Interpretation : RBBB Comparison : No change from previous EKG. 10/08/17 22:33: Chest X-Ray read and interpreted by me shows no acute disease CT Head Without Intravenous Contrast Dictated and Authenticated by: Parris Chin MD 10/08/2017 10:41 PM Eastern Time ([place] & [place]) IMPRESSION: Age-related atrophy and chronic white matter ischemic changes, with no evidence of an acute intracranial abnormality. Right frontal scalp lipoma. 10/08/17 22:56: Case discussed in detail with Dr. Rivera, covering for Dr. Pérez. Will admit patient to Dr. Pérez's service. 10/09/17 19:58 persistnet wheezing needs iv steriods - Lab Interpretations Lab Results: 10/08/17 22:03 10/08/17 22:03 Lab Results 10/08/17 22:03: Sodium 144, Potassium 3.5 L, Chloride 101, Carbon Dioxide 28, Anion Gap 19, BUN 12, Creatinine 0.8, Est GFR ( Amer) > 60, Est GFR (Non- Af Amer) > 60, Random Glucose 70, Calcium 8.6, Magnesium 1.8, Total Bilirubin 0.6, AST 26, ALT 11, Alkaline Phosphatase 65, Lactate Dehydrogenase 525, Total Creatine Kinase 107, Troponin I < 0.01, NT-Pro-B Natriuret Pep 62.0, Total Protein 6.6, Albumin 3.7, Globulin 2.9, Albumin/Globulin Ratio 1.3 10/08/17 22:03: PT 11.6, INR 1.02, APTT 40.2 H 10/08/17 22:03: WBC 5.0, RBC 3.85, Hgb 12.2 L, Hct 37.0 L, MCV 96.1, MCH 31.7, MCHC 33.0, RDW 15.2 H, Plt Count 219, MPV 11.2 H, Gran % 52.0, Lymph % (Auto) 36.4 H, [place] % (Auto) 10.4 H, Eos % (Auto) 1.0 L, Baso % (Auto) 0.2, Gran # 2.60 , Lymph # (Auto) 1.8, [place] # (Auto) 0.5, Eos # (Auto) 0.1, Baso # (Auto) 0.01 I have reviewed the lab results: Yes - RAD Interpretation Radiology Orders: 10/08/17 21:14 CHEST PORTABLE [RAD] Stat 10/08/17 21:15 HEAD W/O CONTRAST [CT] Stat - EKG Interpretation Interpreted by ED Physician: Yes Type: 12 lead EKG - Medication Orders Current Medication Orders: Albuterol/Ipratropium (Duoneb 3 Mg/0.5 Mg (3 Ml) Ud) 3 ml IH [id number] NICHELLE Last Admin: 10/09/17 19:10 Dose: 3 ml Albuterol/Ipratropium (Duoneb 3 Mg/0.5 Mg (3 Ml) Ud) 3 ml IH Q2H PRN PRN Reason: Shortness of Breath Last Admin: 10/09/17 11:25 Dose: 3 ml Chlordiazepoxide (Librium) 25 mg PO Q6 NICHELLE PRN Reason: Protocol Last Admin: 10/09/17 17:36 Dose: 25 mg Behavioural Document 10/09/17 17:36 DEVELOPMENT ADMINISTRATOR (Rec: 10/09/17 17:36 DEVELOPMENT ADMINISTRATOR [id number] Maintenance Maintenance Dose Yes Nonmedicinal Nonmedicinal Interventions Therapeutic Communication Folic Acid 1 mg/ Thiamine HCl 100 mg/ Multivitamins/Vitamin C 10 ml/ Dextrose 1 ,011.2 mls @ 60 mls/hr IV .[id number] NICHELLE Last Admin: 10/09/17 11:11 Dose: 60 mls/hr eMAR Start Stop Document 10/09/17 11:11 DEVELOPMENT ADMINISTRATOR (Rec: 10/09/17 11:11 DEVELOPMENT ADMINISTRATOR [id number] Intravenous Solution Start Date 10/09/17 Start Time 11:10 Methylprednisolone (Solu-Medrol) 40 mg IVP Q12 NICHELLE Last Admin: 10/09/17 11:10 Dose: 40 mg IVP Administration Document 10/09/17 11:10 DEVELOPMENT ADMINISTRATOR (Rec: 10/09/17 11:10 DEVELOPMENT ADMINISTRATOR [id number] Charges for Administration # of IVP Administrations 1 Oxycodone/Acetaminophen (Percocet 5/325 Mg Tab) 1 tab PO Q6H PRN PRN Reason: pain/headache Stop: 10/12/17 16:11 Pantoprazole Sodium (Protonix Inj) 40 mg IVP DAILY NICHELLE Last Admin: 10/09/17 11:10 Dose: 40 mg IVP Administration Document 10/09/17 11:10 DEVELOPMENT ADMINISTRATOR (Rec: 10/09/17 11:11 DEVELOPMENT ADMINISTRATOR [id number] Charges for Administration # of IVP Administrations 1 Thiamine HCl (Vitamin B1 Tab) 100 mg PO DAILY NICHELLE Last Admin: 10/09/17 11:10 Dose: 100 mg Trazodone HCl (Desyrel) 50 mg PO HS NICHELLE Discontinued Medications Acetaminophen/Butalbital/Caffeine (Fioricet) 2 tab PO Q4H STA Stop: 10/09/17 10:36 Last Admin: 10/09/17 11:09 Dose: 2 tab [facility] Pain Assessment Document 10/09/17 11:09 DEVELOPMENT ADMINISTRATOR (Rec: 10/09/17 11:10 DEVELOPMENT ADMINISTRATOR [id number] Pain Reassessment Is this a pain reassessment? No Sleep Is patient sleeping during reassessment? No Presence of Pain Presence of Pain Yes Pain Scale Used Pain Scale Used Numeric Location Pain Location Body B[place] Sawyer Description Description Sharp Intensity of Pain at present 7 Re-Assess: [facility] Pain Assessment Document 10/09/17 12:09 DEVELOPMENT ADMINISTRATOR (Rec: 10/09/17 12:09 DEVELOPMENT ADMINISTRATOR [id number] Pain Reassessment Is this a pain reassessment? Yes Sleep Is patient sleeping during reassessment? No Presence of Pain Presence of Pain No Albuterol/Ipratropium (Duoneb 3 Mg/0.5 Mg (3 Ml) Ud) 3 ml IH Q15M NICHELLE Stop: 10/08/17 21:46 Last Admin: 10/08/17 22:59 Dose: 3 ml Chlordiazepoxide (Librium) 25 mg PO Q6 NICHELLE PRN Reason: Protocol Chlordiazepoxide (Librium) 25 mg PO Q6 PRN; Protocol PRN Reason: Agitation Last Admin: 10/09/17 11:23 Dose: 25 mg Behavioural Document 10/09/17 11:23 DEVELOPMENT ADMINISTRATOR (Rec: 10/09/17 11:23 DEVELOPMENT ADMINISTRATOR [id number]) Maintenance Maintenance Dose Yes Nonmedicinal Nonmedicinal Interventions Therapeutic Communication Re-Assess: Reassess Psych Meds Document 10/09/17 12:23 DEVELOPMENT ADMINISTRATOR (Rec: 10/09/17 12:27 DEVELOPMENT ADMINISTRATOR [id number]) Reassess Psych Med Effective Methylprednisolone (Solu-Medrol) 125 mg IVP STAT STA Stop: 10/08/17 21:16 Last Admin: 10/08/17 22:14 Dose: 125 mg IVP Administration Document 10/08/17 22:14 (Rec: 10/08/17 22:15 [id number]) Charges for Administration # of IVP Administrations 1 - Scribe Statement The provider has reviewed the documentation as recorded by the Scribe Susie Moon Provider Scribe Attestation: All medical record entries made by the Scribe were at my direction and personally dictated by me. I have reviewed the chart and agree that the record accurately reflects my personal performance of the history, physical exam, medical decision making, and the department course for this patient. I have also personally directed, reviewed, and agree with the discharge instructions and disposition. Disposition/Present on Arrival - Present on Arrival Any Indicators Present on Arrival: No History of DVT/PE: No History of Uncontrolled Diabetes: No Urinary Catheter: No History of Decub. Ulcer: No History Surgical Site Infection Following: None - Disposition Have Diagnosis and Disposition been Completed?: Yes Diagnosis: Alcohol abuse, Chronic obstructive lung disease Disposition: HOSPITALIZED Disposition Time: 11:00 Patient Problems: Current Active Problems Problem Status Onset Alcohol abuse Acute Chronic obstructive lung disease Acute Condition: FAIR
[2017-10-08 22:11] LABS: BASO # 0.01 K/mm3 (0.0-2.0); BASO % 0.2 % (0.0-3.0); EOS # 0.1 (0.0-0.7); GRAN # 2.6 (1.4-6.5); HEMOGLOBIN 12.2 g/dL (14.0-18.0); LYMPH # 1.8 (1.2-3.4); LYMPH % 36.4 % (22.0-35.0); MEAN CELL VOLUME 96.1 fl (80.0-105.0); MEAN CORPUSCULAR HEMOGLOBIN 31.7 pg (25.0-35.0); MEAN PLATELET VOLUME 11.2 fl (7.0-11.0); MONO # 0.5 (0.1-0.6); MONO % 10.4 % (1.0-6.0); RBC 3.85 10^6/uL (3.5-6.1); RED CELL DISTRIBUTION WIDTH 15.2 % (11.5-14.5)
[2017-10-08] MEDS: Albuterol-Ipratrop 3 mg / 0.5 (3 ml) UD IH SCH ×2 (22:14→22:59)
[2017-10-08 22:23] LABS: ALB/GLOB RATIO 1.3 (1.1-1.8); ALBUMIN 3.7 g/dL (3.0-4.8); CALCIUM 8.6 mg/dL (8.4-10.5); GFR AFRICAN-AMERICAN > 60; GFR NON-AFRICAN AMERICAN > 60
[2017-10-08 22:34] LABS: TROPONIN I < 0.01 ng/mL
[2017-10-08 22:36] LABS: ALT/SGPT 11 U/L (7-56); AST/SGOT 26 U/L (17-59); BLOOD UREA NITROGEN 12 mg/dL (7-21)
[2017-10-08 22:38] LABS: INR 1.02 (0.93-1.08); PARTIAL THROMBOPLASTIN TIME 40.2 Seconds (25.1-36.5); PROTHROMBIN TIME 11.6 SECONDS (9.4-12.5)
--- NOTE | 2017-10-08 22:41 | CT ---
EXAM: CT Head Without Intravenous Contrast CLINICAL HISTORY: 71 years old, male; Pain; Headache; Additional info: PÉREZ TECHNIQUE: Axial computed tomography images of the head/brain without intravenous contrast. All CT scans at this facility use one or more dose reduction techniques, viz.: automated exposure control; ma/kV adjustment per patient size (including targeted exams where dose is matched to indication; i.e. head); or iterative reconstruction technique. Coronal and sagittal reformatted images were created and reviewed. COMPARISON: CT - HEAD W/O CONTRAST 2017-05-06 13:15 FINDINGS: Brain: There is mild diffuse cerebral atrophy present, consistent with this patient's age. There is mild diffuse heterogeneity of the white matter attenuation, consistent with chronic white matter ischemic changes. No hemorrhage. Ventricles: The ventricular system demonstrates mild diffuse compensatory enlargement. Bones/joints: Unremarkable. No acute fracture. Soft tissues: Fat density lesion in the right frontal scalp is likely a lipoma measuring 2.3 x 0.6 cm. Sinuses: Unremarkable as visualized. No acute sinusitis. Mastoid air cells: Unremarkable as visualized. No mastoid effusion. IMPRESSION: Age-related atrophy and chronic white matter ischemic changes, with no evidence of an acute intracranial abnormality. Right frontal scalp lipoma.
[2017-10-09 00:49] VITALS: BMI 24.2
--- NOTE | 2017-10-09 08:13 | RAD ---
HISTORY: sob COMPARISON: 05/04/2017 FINDINGS: LUNGS: No active pulmonary disease. PLEURA: No significant pleural effusion identified, no pneumothorax apparent. CARDIOVASCULAR: Normal. OSSEOUS STRUCTURES: No significant abnormalities. VISUALIZED UPPER ABDOMEN: Normal. OTHER FINDINGS: None. IMPRESSION: No active disease.
[2017-10-09] MEDS ORDERED: Apap-Butalbital-Caffeine 325-50-40mg Tab PO STA (10:35)
--- NOTE | 2017-10-09 10:49 | CARD ---
APPROVED REPORT EKG Measurement Heart [id number] <Conclusion> Normal sinus rhythm Left axis deviation/LAHB Right bundle branch block Septal infarct, age undetermined No change
[2017-10-09] MEDS: MethylPREDNISolone 40 mg Vial IVP SCH ×2 (11:10→21:59)
[2017-10-09] MEDS: Folic Acid 1 MG, Thiamine 100 MG, Multivitamin (MVI) 10 ML in Dextrose 5% In Water 1,00... IV SCH ×2 (11:11→21:56)
[2017-10-09] MEDS: Albuterol-Ipratrop 3 mg / 0.5 (3 ml) UD IH PRN (11:25)
[2017-10-09 11:41] LABS: ALB/GLOB RATIO 1.3 (1.1-1.8); ALBUMIN 3.8 g/dL (3.0-4.8); ALT/SGPT 23 U/L (7-56); AST/SGOT 22 U/L (17-59); BLOOD UREA NITROGEN 15 mg/dL (7-21); CALCIUM 9.1 mg/dL (8.4-10.5); GFR AFRICAN-AMERICAN > 60; GFR NON-AFRICAN AMERICAN > 60
[2017-10-09] MEDS: Albuterol-Ipratrop 3 mg / 0.5 (3 ml) UD IH SCH ×2 (12:00→19:10)
--- NOTE | 2017-10-09 13:35 | HP ---
HISTORY OF PRESENT ILLNESS: The patient is a 71-year-old black male, came to emergency room because of increasing cough, congestion, shortness of breath. He was complaining of headache, dizziness. He does admit drinking alcohol and he states he came to emergency room to get help. He has no history of fall. No history of nausea or vomiting. No numbness. No weakness. No hemoptysis. No hematemesis. PAST MEDICAL HISTORY: Significant for, 1. Subdural hematoma. 2. History of coronary artery disease. 3. Asthma. 4. Hypertension. 5. History of subdural hematoma in the past. PAST SURGICAL HISTORY: Surgical history also significant for right cataract extraction and cyst removed from his right hand, status post appendectomy and inguinal hernia repair. SOCIAL HISTORY: He smokes almost 1 pack a day and also regularly drinks. He admits using illicit drugs off and on. Drinks almost one-half a pint everyday. REVIEW OF SYSTEMS: Significant for feeling a little shaky, complaining of shortness of breath. PHYSICAL EXAMINATION: GENERAL: He is awake, alert, oriented, communicative. VITAL SIGNS: He is afebrile, pulse 85, respirations 20, blood pressure 132/85. LUNGS: Bilateral few occasional expiratory rhonchi. HEART: S1 and S2 audible. ABDOMEN: Soft. Nontender. No rebound. No guarding. NEUROLOGICAL: He is awake, alert, oriented, communicative. LABORATORY EXAM: WBC 5, hemoglobin 12, hematocrit 37, platelet of 219. PT 11.6, INR 1.02. Chemistry: Sodium 141, potassium 4, chloride 98, CO2 of 29, BUN 15, creatinine 0.8, blood sugar of 187. Alcohol level is less than 10. ASSESSMENT: 1. Alcohol withdrawal. 2. Chronic obstructive pulmonary disease exacerbation. 3. History of depression. PLAN: We will start the patient on IV steroid, start him on thiamine. He is on Protonix. I will put him on Librium. The patient states he wants to quit smoking and drinking and he needs help for that. He should be referred to AA upon discharge. I will continue him on IV fluids, Librium, IV steroid, nebulizer treatment. Dr. Pérez will follow up the patient in the a.m. Estee Rivera MD [facility] # [id number]
[2017-10-09] MEDS: Oxycodone/Acetaminophen 5/325 mg Tab PO PRN (20:34)
[2017-10-10] MEDS: Albuterol-Ipratrop 3 mg / 0.5 (3 ml) UD IH PRN (00:37)
[2017-10-10] MEDS: Albuterol-Ipratrop 3 mg / 0.5 (3 ml) UD IH SCH ×4 (01:44→22:26)
[2017-10-10] MEDS: Folic Acid 1 MG, Thiamine 100 MG, Multivitamin (MVI) 10 ML in Dextrose 5% In Water 1,00... IV SCH (02:04)
[2017-10-10] MEDS: Pantoprazole 40 mg EC Tab PO SCH (06:13)
[2017-10-10] MEDS: MethylPREDNISolone 40 mg Vial IVP SCH (09:14)
--- NOTE | 2017-10-10 10:47 | PN ---
DATE: 10/10/2017 SUBJECTIVE: The patient has no complaints of any chest pain. No shortness of breath. No headaches or dizziness. He states he has pain in the right knee. He states breathing is better. OBJECTIVE: VITAL SIGNS: Temperature is 97.5, pulse of 68, blood pressure 112/68, respiration 18. GENERAL: The patient is lying in bed, flat, comfortable. HEENT: No oral lesion. Anicteric sclerae. Moist mucosa. NECK: No JVD, adenopathy, or thyromegaly. CARDIOVASCULAR: S1 and S2, regular. No murmurs, rubs, or gallops. LUNGS: Clear to auscultation bilaterally. No wheeze, rales, or rhonchi. ABDOMEN: Bowel sounds are positive. Soft, nontender and nondistended. EXTREMITIES: No cyanosis, clubbing or edema. DATA: White count of 5, hemoglobin 12.2, creatinine 0.8. CT of the head done, shows right frontal scalp lipoma. He has age-related atrophy and chronic white matter ischemic changes with no evidence of acute intracranial abnormality. ASSESSMENT: 1. Alcohol withdrawal. 2. Acute chronic obstructive pulmonary disease. 3. Chronic headaches. 4. Right frontal scalp lipoma. 5. History of subdural hematoma. 6. Alcoholism. 7. Coronary artery disease. 8. Hypertension. PLAN: The patient is currently comfortable, is on trazodone. He is receiving Librium. He is going to continue with Protonix. He is on steroids for his breathing, his breathing is much better. I will start to taper off his steroids. I did speak to the patient's daughter at the bedside to give her an update on the patient's diagnosis and plan of care. We will discontinue Telemetry monitoring. Salvador Pérez MD
[2017-10-10] MEDS ORDERED: Bupivacaine 0.5% Inj(30mL) IJ ONE (15:52)
[2017-10-10] MEDS ORDERED: MethylPREDNISolone Depo 40 mg/ml Inj IM ONE (15:52)
[2017-10-10] MEDS: Oxycodone/Acetaminophen 5/325 mg Tab PO PRN (21:56)
--- NOTE | 2017-10-11 02:55 | CON ---
DATE: 10/10/2017 ORTHOPEDIC CONSULTATION LOCATION: Room 570, bed 1. HISTORY OF PRESENT ILLNESS: Patient came in complaining of bilateral knee pain. Today, it was right worse than the left, but on the x-ray done a year ago of both knees, his left knee was worse than the right, with mainly medial joint line space narrowing. He does not want to get a cortisone shot today, which would help his pain so much that he would do therapy better, so, we will see how he feels tomorrow. If the pain is worse or significant, he could consider getting a cortisone shot in the most symptomatic knee. Like I said, the arthritis is worse on the left, on the medial side, than the right, but I will inject when that hurts the most and I am going to write an order for physical therapy, to ambulate with a walker, and get strengthening exercise to decrease his chance of falling. FINAL DIAGNOSIS: Bilateral knee osteoarthritis, left worse than the right. Russ Stearns DO
[2017-10-11] MEDS: Albuterol-Ipratrop 3 mg / 0.5 (3 ml) UD IH SCH ×3 (03:10→15:04)
[2017-10-11] MEDS: Pantoprazole 40 mg EC Tab PO SCH (06:09)
[2017-10-11 08:29] VITALS: RESP 20
[2017-10-11] MEDS: MethylPREDNISolone 40 mg Vial IVP SCH (09:19)
[2017-10-11] MEDS ORDERED: Multivitamin Therapeutic Tab PO SCH (10:00)
[2017-10-11 15:50] VITALS: BP 128/79; PULSE 78; TEMP 98.6; O2SAT 97
--- NOTE | 2017-10-11 20:15 | DS ---
HOSPITAL COURSE: This is a 71-year male who initially came to the hospital because of COPD exacerbation. He was also drinking. The patient has had a history of alcoholism. He has been advised multiple times in the past to stop drinking. The patient did have knee pain; he was injected by Dr. Stearns. He says his knee pain is better. He is waiting to be seen by physical therapy. If he qualifies for Transitional Care Unit or subacute rehab, we will transfer him there. He is comfortable. He has no complaints of any breathing issues. No chest pain or shortness of breath or nausea or vomiting. PHYSICAL EXAMINATION: VITAL SIGNS: Temperature is 97.7, pulse of 62, blood pressure 133/70, respirations 20. GENERAL: The patient is lying in bed, flat, comfortable. HEENT: No oral lesion. Anicteric sclerae. Moist mucosa. NECK: No JVD, adenopathy, or thyromegaly. CARDIOVASCULAR: S1 and S2, regular. No murmurs, rubs, or gallops. LUNGS: Clear to auscultation bilaterally. No wheeze, rales, or rhonchi. ABDOMEN: Bowel sounds are positive, soft, nontender, and nondistended. EXTREMITIES: no cyanosis, clubbing, or edema. ASSESSMENT: 1. Acute chronic obstructive pulmonary disease exacerbation, improved. 2. Alcohol withdrawal. 3. Alcoholism. 4. Chronic headaches, possibly from traumatic brain injury. 5. Right frontal scalp lipoma. 6. History of subdural hematoma. 7. Alcoholism. 8. Coronary artery disease. 9. Hypertension. PLAN: The patient is going to continue on aspirin. He is on folic acid. The patient is on Percocet for pain. He is receiving Solu-Medrol; it is being tapered. He is on 40 mg IV daily at this point. Patient is on thiamine. He is on a heart-healthy diet. I did speak to the patient's daughter to give an update on the patient's diagnosis and plan of care. Salvador Pérez MD
== END 2017-10-11 17:16 | DRG 191 ==
LOC: ED 20:56 → ERH 22:55 → 2RNO 10-09 00:40 → 5RSO 10-10 12:15
PROVIDERS: ADMIT Internal Medicine Nephrology; ATTEND Internal Medicine Nephrology
PROC: 3E0F7GC Introduction of Other Therapeutic Substance into Respiratory Tract, Via Natural or Artificial Opening (ICD-10-PCS; principal; 2017-10-09)
DX: J44.1 Chronic obstructive pulmonary disease with (acute) exacerbation (principal); F10.239 Alcohol dependence with withdrawal, unspecified; I25.10 Atherosclerotic heart disease of native coronary artery without angina pectoris; I10 Essential (primary) hypertension; M17.0 Bilateral primary osteoarthritis of knee; R51 Headache; F17.210 Nicotine dependence, cigarettes, uncomplicated; D17.0 Benign lipomatous neoplasm of skin and subcutaneous tissue of head, face and neck; Z95.5 Presence of coronary angioplasty implant and graft; Z98.41 Cataract extraction status, right eye

== ENCOUNTER 2017-10-11 17:16 | Inpatient (IN) | payer OTHER ==
[2017-10-11] MEDS ORDERED: Albuterol-Ipratrop 3 mg / 0.5 (3 ml) UD IH PRN (18:06)
[2017-10-11] MEDS: Albuterol-Ipratrop 3 mg / 0.5 (3 ml) UD IH SCH (19:59)
[2017-10-11] MEDS: Oxycodone/Acetaminophen 5/325 mg Tab PO PRN (21:12)
[2017-10-11 21:57] VITALS: BMI 21.9
[2017-10-11] MEDS ORDERED: Pneumococcal 23-Valent Vaccine IM ONE (21:57)
[2017-10-12] MEDS: Albuterol-Ipratrop 3 mg / 0.5 (3 ml) UD IH SCH ×2 (01:31→07:17)
[2017-10-12] MEDS ORDERED: MethylPREDNISolone 40 mg Vial IVP SCH (06:00)
[2017-10-12] MEDS: Pantoprazole 40 mg EC Tab PO SCH (06:05)
[2017-10-12] MEDS: Multivitamin Therapeutic Tab PO SCH (09:35)
[2017-10-12] MEDS: Alum-Mag Hydrox-Simethicone Susp (30 mL) PO PRN (13:32)
--- NOTE | 2017-10-12 17:34 | HP ---
HISTORY OF PRESENT ILLNESS: This is a 71-year-old male who had come to the hospital. He has a history of alcoholism. He had been drinking. The patient is going through alcohol withdrawal. The patient also has a history of COPD, was given steroids and nebulizer treatments. He is having difficulty with walking, so he was transferred to Transitional Care Unit for rehabilitation. The patient states he is breathing well. He has no complaints of any headaches or dizziness. No abdominal pain. No back pain. No dysuria or frequency. No nocturia. PAST MEDICAL HISTORY: COPD, alcoholism, chronic headaches, right frontal lipoma, subdural hematoma, alcoholism, coronary artery disease, and hypertension. PAST SURGICAL HISTORY: Right cataract extraction, cyst removal of the right hand, appendectomy, and inguinal hernia repair. SOCIAL HISTORY: He smokes one pack per day. He drinks regularly. He has used drugs in the past. Currently, he is not using any drugs. FAMILY HISTORY: Noncontributory. PHYSICAL EXAMINATION: VITAL SIGNS: The patient has a temperature of 97.2, pulse of 79, blood pressure is 142/60, respirations 18. GENERAL: The patient lying in bed, uncomfortable, and in no acute distress. HEENT: Atraumatic and normocephalic. Anicteric sclerae. Moist mucosa. ink conjunctivae. No oral lesions. NECK: No JVD, anterior and posterior adenopathy, thyromegaly, or bruits. CARDIOVASCULAR: S1 and S2 regular. No murmur, rubs, or gallop. LUNGS: Clear to auscultation bilaterally. No wheezes, rales, or rhonchi. ABDOMEN: Bowel sounds are positive. Soft, nontender and nondistended. No hepatosplenomegaly. No rebound and no guarding. EXTREMITIES: No cyanosis, clubbing, or edema. NEUROLOGIC: No facial asymmetry. Tongue is midline. No uvula deviation. Power is 5/5 upper extremity and lower extremity. Sensation intact in upper extremity and lower extremity. PSYCHIATRIC: He is awake, alert and oriented x3. No anxiety or depression. He has normal affect. GENITOURINARY: No CVA tenderness. VASCULAR: 2+ pulses in the carotid pulses and pedal pulses. SKIN: No erythema or nodules. SPINE: Shows normal curvature. LABORATORY DATA: Reviewed that were done in last few days. ASSESSMENT: 1. Acute chronic obstructive pulmonary disease, improving. 2. Alcohol withdrawal. 3. Alcoholism. 4. 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 5. Right frontal scalp lipoma. 6. Coronary artery disease. 7. Hypertension. 8. Smoking. PLAN: The patient is getting physical therapy in the Transitional Care Unit. I reviewed his last discharge summary and H and P from the medical records. The patient is on nebulizer treatment. I will place him on nebulizer three times a day. He is on folic acid, this will continue. He is on trazodone. The patient is on a nicotine patch because of smoking. The patient is on Percocet for pain. He is on Protonix daily. The patient is on Solu-Medrol, this has been tapered. The patient is on multivitamins. Salvador Pérez MD
[2017-10-12] MEDS: Oxycodone/Acetaminophen 5/325 mg Tab PO PRN (20:40)
[2017-10-13] MEDS: Pantoprazole 40 mg EC Tab PO SCH (05:43)
[2017-10-13] MEDS ORDERED: Albuterol-Ipratrop 3 mg / 0.5 (3 ml) UD IH PRN (06:08)
[2017-10-13] MEDS: Albuterol-Ipratrop 3 mg / 0.5 (3 ml) UD IH SCH ×3 (07:21→19:28)
[2017-10-13] MEDS: Multivitamin Therapeutic Tab PO SCH (09:20)
--- NOTE | 2017-10-13 10:03 | PN ---
DATE: 10/13/2017 HISTORY OF PRESENT ILLNESS: Mr. Larkin is 71-year-old male admitted to the hospital with history of alcoholism. He has been drinking a lot with alcohol withdrawal. He was transferred to Transitional Care Unit for gait improvement. He has chronic anemia also. No back pain. No nausea. No vomiting. PAST MEDICAL HISTORY: COPD, chronic alcoholism, right frontal hematoma, coronary artery disease, hypertension. PAST SURGICAL HISTORY: Cataract surgery, appendectomy, inguinal hernia repair. SOCIAL HISTORY: Smokes 1 pack a day. FAMILY HISTORY: Noncontributory. PERSONAL HISTORY: Lives at home. PHYSICAL EXAMINATION GENERAL: Comfortable in bed, in no acute distress. VITAL SIGNS: Temperature 98.7, heart rate 80 per minute, blood pressure 120/70, respiratory rate 18 per minute. HEENT: Atraumatic. No oral lesions. NECK: No lymphadenopathy. CHEST: Air entry present and equal bilateral. No added sound. CARDIOVASCULAR: S1 and S2 normal. No murmur. No gallop. ABDOMEN: Soft, nontender. No hepatosplenomegaly. EXTREMITIES: No edema. CENTRAL NERVOUS SYSTEM: Alert and oriented x3. No focal, sensory or motor deficits. LABORATORY DATA: White count 5, hemoglobin 12.2, hematocrit 37, platelets 219. Sodium 141, potassium 4, creatinine 0.8. ASSESSMENT AND PLAN: Chronic obstructive pulmonary disease, alcohol withdrawal, chronic anemia, coronary artery disease, subdural hematoma. PLAN: He is getting physical therapy. Continue bronchodilators. Continue folic acid. He is on trazodone also, Protonix daily, Percocet p.r.n. for back pain. Solu-Medrol is being tapered. Continue thiamine 100 mg daily. Tatiana Del Castillo MD
[2017-10-13] MEDS: Docusate-Senna 50 mg-8.6 mg Tab PO SCH ×2 (11:55→17:34)
[2017-10-13] MEDS: Alum-Mag Hydrox-Simethicone Susp (30 mL) PO PRN (17:34)
[2017-10-14] MEDS: Albuterol-Ipratrop 3 mg / 0.5 (3 ml) UD IH SCH ×4 (01:17→19:59)
[2017-10-14] MEDS: Pantoprazole 40 mg EC Tab PO SCH (05:48)
[2017-10-14] MEDS: Docusate-Senna 50 mg-8.6 mg Tab PO SCH ×2 (09:11→17:17)
[2017-10-14] MEDS: Multivitamin Therapeutic Tab PO SCH (09:12)
[2017-10-15] MEDS: Albuterol-Ipratrop 3 mg / 0.5 (3 ml) UD IH SCH ×4 (01:10→19:42)
[2017-10-15] MEDS: Pantoprazole 40 mg EC Tab PO SCH (06:05)
[2017-10-15] MEDS: Docusate-Senna 50 mg-8.6 mg Tab PO SCH ×2 (09:37→18:00)
[2017-10-15] MEDS: Multivitamin Therapeutic Tab PO SCH (09:37)
--- NOTE | 2017-10-15 10:37 | PN ---
DATE: 10/15/2017 FOLLOWUP NOTE SUBJECTIVE: He is comfortable in bed, in no acute distress. No events overnight. He is participating in physical therapy. Appetite is good. REVIEW OF SYSTEMS: As per HPI. Rest of 12-point review of systems reviewed negative. PHYSICAL EXAMINATION: GENERAL: Comfortable in bed, in no acute distress. VITAL SIGNS: Temperature 98.8, heart rate is 86 per minute, blood pressure 128/64, respiratory rate 18 per minute. HEENT AND NECK: Atraumatic, normocephalic. Pallor positive. Neck: No lymphadenopathy. CHEST: Air entry present and equal bilateral. No added sound. CARDIOVASCULAR: S1, S2 normal. No murmur. No gallop. ABDOMEN: Soft, nontender. No hepatosplenomegaly. EXTREMITIES: No edema. ALL ROUND BUTCHER: Alert and oriented x3. No focal sensorimotor deficit. LABORATORY DATA: Labs reviewed. MEDICATIONS: Reviewed. ASSESSMENT AND PLAN: Chronic obstructive pulmonary; alcohol withdrawal; chronic anemia; coronary artery disease; subdural hematoma, chronic. Continue physical therapy. Percocet p.r.n. for pain. Solu-Medrol is being tapered. Thiamine, we will continue thiamine. No withdrawal symptoms. We will continue folic acid. Encourage physical therapy. Tatiana Del Castillo MD
[2017-10-16] MEDS: Albuterol-Ipratrop 3 mg / 0.5 (3 ml) UD IH SCH ×4 (01:24→19:32)
[2017-10-16] MEDS: Pantoprazole 40 mg EC Tab PO SCH (05:26)
[2017-10-16] MEDS: Alum-Mag Hydrox-Simethicone Susp (30 mL) PO PRN (07:53)
[2017-10-16] MEDS: Docusate-Senna 50 mg-8.6 mg Tab PO SCH ×2 (09:14→17:55)
[2017-10-16] MEDS: Multivitamin Therapeutic Tab PO SCH (09:16)
[2017-10-17] MEDS: Albuterol-Ipratrop 3 mg / 0.5 (3 ml) UD IH SCH ×2 (01:12→07:16)
[2017-10-17] MEDS: Pantoprazole 40 mg EC Tab PO SCH (05:39)
--- NOTE | 2017-10-17 09:14 | CP.PCM.PCO ---
Physician Communication Note - Physician Communication Note Physician Communication Note: pt will be seen by
--- NOTE | 2017-10-17 09:19 | CON ---
DATE: 10/14/2017 The patient is a 71-year-old -[place] male with a history of an alcohol use disorder, who was admitted with COPD. He is now recuperating on the transitional care unit. HISTORY OF PRESENT ILLNESS: The patient has been treated with steroids and nebulizers, and was having difficulty walking leading to his transfer to the TCU for rehabilitation. He has chronic headaches; in the past he has had an appendectomy, an inguinal hernia repair, a right cataract, a right frontal lipoma, a subdural hematoma, coronary artery disease and hypertension. He had last been treated by me inpatient in 11/2016. He was put on naltrexone and was seen briefly by me in my office. He, however, has had a relapse and is drinking about a pint of Vodka at some indeterminate frequency. He has a long-term history of alcohol use, which has impacted on his mood. He was interviewed in the presence of his daughter. He also has a son. The daughter's plan is for him to move in with her in a new apartment along with his ex-, so as to make it easier for the daughter to be able to care for her infirm parents. The patient is presently alert, oriented, pleasant, speaks of depression but without suicidality or homicidality. He has some sleep disturbance. He has chronic headaches. He indicates that his memory is okay and he does appear to be alert and oriented to 3 spheres and without overt memory problems. He does not appear to be psychotic. CBC and differential shows lowered hemoglobin of 12.2, hematocrit 37. Toxicology screen is negative. A biochemical profile taken on 10/12/2017 showed elevated blood glucose of 140, a more complete chemical profile on 10/09/2017 was within limits. On 10/08/2017, he had lowered potassium of 3.5. He is presently being maintained on trazodone 50 mg at bedtime p.r.n., albuterol every 12 p.r.n., DuoNeb every 6 as scheduled, Ecotrin 81 mg, folic acid 1 mg, Librium 25 mg every 6 hours. As his liver functions appeared to be within normal limits, I will start the patient on naltrexone as a means of helping to attenuate his alcohol craving/drive. We will monitor for his mood. The patient would benefit from ongoing psychiatric care after leaving the hospital; something that he had started previously but unfortunately did not follow through on. DIAGNOSES: 1. Alcohol use disorder. 2. 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 The patient does not have an extensive psychiatric history. Corey Nickerson MD/ PhD
[2017-10-17] MEDS: Docusate-Senna 50 mg-8.6 mg Tab PO SCH ×2 (09:20→17:38)
[2017-10-17] MEDS: Multivitamin Therapeutic Tab PO SCH (09:21)
--- NOTE | 2017-10-17 09:29 | PN ---
DATE: 10/17/2017 SUBJECTIVE: The patient has no complaints of any chest pain. No shortness of breath. No headaches. He says his breathing is improved. He is ambulating better. PHYSICAL EXAMINATION: VITAL SIGNS: Temperature is 97.8, pulse of 94, blood pressure is 111/70, respirations 16. ASSESSMENT: 1. Acute chronic obstructive pulmonary disease exacerbation, improved. 2. Alcoholism. 3. Alcohol withdrawal, improved. 4. 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 5. Right frontal scalp lipoma. 6. Coronary artery disease. 7. Hypertension. 8. Smoking. PLAN: The patient is currently on trazodone, this will be continued. I will discontinue the patient's nebulizer treatment at this point, just make it p.r.n. The patient is on folic acid. This will be continued. I will discontinue his Librium. He is on a nicotine patch for his smoking. The patient is on naltrexone. He is on docusate for his constipation. The patient is on vitamins and thiamine. He is on a heart-healthy diet. He is due to be discharged in 2 days. I did advise him of that. I will repeat his blood work tomorrow. Salvador Pérez MD
--- NOTE | 2017-10-17 15:58 | CP.PCM.PN ---
Subjective - Date & Time of Evaluation Date of Evaluation: 10/17/17 Time of Evaluation: 12:00 - Subjective Subjective: Patient was alert, oriented spheres. Does not appear to be psychotic. Speaks of some fatigue and not up to himself but seems comfortable. He is not homicidal or suicidal. Objective - Vital Signs/Intake and Output Vital Signs (last 24 hours): Temp Pulse Resp BP Pulse Ox 97.8 F 94 H 16 111/70 97 10/16/17 16:00 10/16/17 16:00 10/16/17 16:00 10/16/17 16:00 10/16/17 16:00 Intake and Output: 10/17/17 10/17/17 06:59 18:59 Intake Total 420 Balance 420 - Medications Medications: Current Medications Al Hydrox/Mg Hydrox/Simethicone (Maalox Plus 30 Ml) 30 ml PO Q4H PRN; Protocol PRN Reason: Indigestion / Heartburn Last Admin: 10/16/17 07:53 Dose: 30 ml Albuterol/Ipratropium (Duoneb 3 Mg/0.5 Mg (3 Ml) Ud) 3 ml IH Q2H PRN PRN Reason: Shortness of Breath Last Admin: 10/13/17 06:16 Dose: 3 ml Aspirin (Ecotrin) 81 mg PO 0800 NICHELLE PRN Reason: Protocol Last Admin: 10/17/17 07:52 Dose: 81 mg Folic Acid (Folic Acid) 1 mg PO DAILY NICHELLE PRN Reason: Protocol Last Admin: 10/17/17 09:20 Dose: 1 mg Multivitamins (Thera Tab) 1 tab PO DAILY NICHELLE PRN Reason: Protocol Last Admin: 10/17/17 09:21 Dose: 1 tab Naltrexone HCl (Revia) 50 mg PO QD5 [facility] Last Admin: 10/16/17 17:54 Dose: 50 mg Nicotine (Nicoderm Cq) 1 patch TD DAILY NICHELLE PRN Reason: Protocol Last Admin: 10/17/17 09:20 Dose: 1 patch Pantoprazole Sodium (Protonix Ec Tab) 40 mg PO 0600 [facility] PRN Reason: Protocol Last Admin: 10/17/17 05:39 Dose: 40 mg Senna/Docusate Sodium (Senokot S 50 Mg-8.6 Mg) 2 tab PO BID [facility] Last Admin: 10/17/17 09:20 Dose: 2 tab Thiamine HCl (Vitamin B1 Tab) 100 mg PO DAILY NICHELLE PRN Reason: Protocol Last Admin: 10/17/17 09:21 Dose: 100 mg Trazodone HCl (Desyrel) 50 mg PO HS PRN; Protocol PRN Reason: Insomnia - Constitutional Appears: Well - Psychiatric Exam Psychiatric exam: Flat Affect Assessment and Plan - Assessment and Plan (Free Text) Assessment: General the patient is looking better. His affect is brighter. He still complains of some fatigue and lack of energy. He however is denying present feelings of depression. Perhaps he is experiencing feelings of loneliness and boredom. He is not homicidal suicidal or psychotic. Plan: We'll continue to offer supportive services. The patient has been offered the opportunity to follow his psychiatric issues on an outpatient basis.
[2017-10-18] MEDS: Pantoprazole 40 mg EC Tab PO SCH (05:33)
[2017-10-18 06:22] LABS: MEAN CELL VOLUME 96.9 fl (80.0-105.0); MEAN CORPUSCULAR HEMOGLOBIN 31.9 pg (25.0-35.0); RBC 4.54 10^6/uL (3.5-6.1); RED CELL DISTRIBUTION WIDTH 15.8 % (11.5-14.5)
[2017-10-18 06:26] LABS: HEMOGLOBIN 14.5 g/dL (14.0-18.0)
[2017-10-18 07:21] LABS: ALB/GLOB RATIO 1.3 (1.1-1.8); ALBUMIN 4.1 g/dL (3.0-4.8); ALT/SGPT 43 U/L (7-56); AST/SGOT 42 U/L (17-59); BLOOD UREA NITROGEN 30 mg/dL (7-21); CALCIUM 10.2 mg/dL (8.4-10.5); GFR AFRICAN-AMERICAN > 60; GFR NON-AFRICAN AMERICAN > 60
[2017-10-18] MEDS: Docusate-Senna 50 mg-8.6 mg Tab PO SCH ×2 (10:06→17:34)
[2017-10-18] MEDS: Multivitamin Therapeutic Tab PO SCH (10:07)
[2017-10-18 10:31] VITALS: TEMP 97.8
[2017-10-18 16:22] VITALS: BP 123/88; RESP 18
[2017-10-19] MEDS: Pantoprazole 40 mg EC Tab PO SCH (05:45)
[2017-10-19] MEDS: Multivitamin Therapeutic Tab PO SCH (10:43)
[2017-10-19] MEDS: Docusate-Senna 50 mg-8.6 mg Tab PO SCH (10:43)
[2017-10-19 15:58] VITALS: PULSE 94; O2SAT 99
--- NOTE | 2017-10-20 02:34 | DS ---
HISTORY OF PRESENT ILLNESS: Patient has no complaints of any chest pain, no shortness of breath, no headache, no dizziness. Patient has been on Transitional Care for physical therapy. He continues to do well with physical therapy. I did advise him about not drinking. I spoke with the patient's daughter. She is interested in getting him to subacute rehab facility. gum worker is going to see if he would qualify. If he does, then he will be able to go to subacute rehab; otherwise, he will be discharged home. PHYSICAL EXAMINATION: VITAL SIGNS: Temperature is 97.8, pulse of 83, blood pressure 123/88, respirations 18. GENERAL: The patient is lying in bed, flat, comfortable. HEENT: No oral lesion. Anicteric sclerae. Moist mucosa. NECK: No JVD, adenopathy, or thyromegaly. CARDIOVASCULAR: S1 and S2, regular. No murmurs, rubs, or gallops. LUNGS: Clear to auscultation bilaterally. No wheeze, rales, or rhonchi. ABDOMEN: Bowel sounds are positive, soft, nontender and nondistended. EXTREMITIES: No cyanosis, clubbing or edema. LABORATORY DATA: Creatinine is 0.9. ASSESSMENT: 1. Acute chronic obstructive pulmonary disease exacerbation. 2. Alcoholism. 3. Alcohol withdrawal, improved. 4. 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 5. Right frontal scalp lipoma. 6. Coronary artery disease. 7. Hypertension. 8. Smoking. PLAN: The patient is currently comfortable. He is on nebulizers as needed. He is on trazodone. The patient is on folic acid. He is on naltrexone. He is on thiamine. He is on a heart-healthy diet. Salvador Pérez MD
== END 2017-10-19 11:05 | disposition home or self-care (01) | DRG 191 ==
LOC: TRCU 17:16
PROVIDERS: ADMIT Internal Medicine Nephrology; ATTEND Internal Medicine Nephrology
PROC: F07Z9ZZ Gait Training/Functional Ambulation Treatment (ICD-10-PCS; principal; 2017-10-12)
PROC: F07M6ZZ Therapeutic Exercise Treatment of Musculoskeletal System - Whole Body (ICD-10-PCS; 2017-10-12)
PROC: F08Z1ZZ Dressing Techniques Treatment (ICD-10-PCS; 2017-10-12)
PROC: F08Z2ZZ Grooming/Personal Hygiene Treatment (ICD-10-PCS; 2017-10-12)
DX: J44.1 Chronic obstructive pulmonary disease with (acute) exacerbation (principal); F10.239 Alcohol dependence with withdrawal, unspecified; D17.9 Benign lipomatous neoplasm, unspecified; D64.9 Anemia, unspecified; F17.210 Nicotine dependence, cigarettes, uncomplicated; F32.89 Other specified depressive episodes; I10 Essential (primary) hypertension; I25.10 Atherosclerotic heart disease of native coronary artery without angina pectoris; R51 Headache; Z87.820 Personal history of traumatic brain injury; Z98.41 Cataract extraction status, right eye; Z90.49 Acquired absence of other specified parts of digestive tract